=== PATIENT | female | born 1975 | race Caucasian/White ===

== ENCOUNTER 2023-05-31 07:57 | Outpatient (CLI) | payer OTHER, SELFPAY | END 2023-05-31 07:58 | disposition home or self-care (01) | LOC: NFLDREF 06-04 10:24 | PROVIDERS: PCP Physician Assistant Medical; Referring Provider Physician Assistant Medical; Visit Provider Physician Assistant Medical | DX: Z13.0 Encounter for screening for diseases of the blood and blood-forming organs and certain disorders involving the immune mechanism (principal); Z13.1 Encounter for screening for diabetes mellitus; Z13.6 Encounter for screening for cardiovascular disorders | CPT/HCPCS: 80053; 80061 ==

== ENCOUNTER 2023-07-09 11:08 | Outpatient (CLI) | payer OTHER, SELFPAY ==
--- NOTE | 2023-07-09 12:33 | W.ANESCHARGE ---
Anesthesia Charges Start Date/Time Anesthesia Start Date: 07/09/23 Anesthesia Start Time: 11:53 Stop Date/Time Anesthesia Stop Date: 07/09/23 Anesthesia Stop Time: 12:31
== END 2023-07-09 11:09 | disposition home or self-care (01) ==
LOC: OP CLINIC 11:08
PROVIDERS: PCP Physician Assistant Medical; Visit Provider Surgery
DX: Z12.11 Encounter for screening for malignant neoplasm of colon (principal); K63.5 Polyp of colon
CPT/HCPCS: 00811; 45385; 88305; J2704

== ENCOUNTER 2024-08-07 08:22 | Outpatient (CLI) | payer OTHER, SELFPAY ==
[2024-08-07 15:45] LABS: Chlamydia DNA Amplified* NOT DETECTED (No Detected); GC DNA Amplified* NOT DETECTED (No Detected)
[2024-08-09 01:02] LABS: HPV Source Cervix; HPV, High Risk by TMA Not Detected
== END 2024-08-07 08:23 | disposition home or self-care (01) ==
PROVIDERS: PCP Physician Assistant Medical; Visit Provider Physician Assistant Medical
DX: D64.9 Anemia, unspecified (principal); Z12.4 Encounter for screening for malignant neoplasm of cervix; Z11.3 Encounter for screening for infections with a predominantly sexual mode of transmission; Z13.21 Encounter for screening for nutritional disorder; Z13.220 Encounter for screening for lipoid disorders; Z13.228 Encounter for screening for other metabolic disorders
CPT/HCPCS: 80048; 80061; 82607; 83540; 83550; 87491; 87591; 87624; 87625; 88141; 88142

== ENCOUNTER 2024-09-01 09:31 | Outpatient (CLI) | payer OTHER, SELFPAY ==
--- NOTE | 2024-09-01 09:45 | CRLHL7_ITS ---
For Patients: As a result of the Century Cures Act, medical imaging exams and procedure reports are released immediately into your electronic medical record. You may view this report before your referring provider. If you have questions, please contact your health care provider. BILATERAL SCREENING MAMMOGRAM WITH COMPUTER-AIDED DETECTION AND TOMOSYNTHESIS TECHNIQUE: CC and MLO views were obtained. These mammographic images have been obtained using full-field digital technique. These mammographic images were interpreted with the benefit of computer-aided detection. Breast Tomosynthesis was used in this interpretation. COMPARISON FILM: 10/02/22, 09/12/21. FINDINGS: There are scattered areas of fibroglandular density. IMPRESSION: There is no radiographic evidence for malignancy. ASSESSMENT: BI-RADS Category 1: Negative RECOMMENDATION: Routine screening mammogram in 1 year. A lay language report of this examination will be provided to the patient. Tal Smith M.D. Diagnostic Radiologist [email or web address] SP/Dictated by: Tal Smith MD @ 09/06/2024 9:51:00 AM (Electronically Signed)
== END 2024-09-01 09:32 | disposition home or self-care (01) ==
LOC: MAMMO 09:32
PROVIDERS: PCP Physician Assistant Medical; Visit Provider Physician Assistant Medical
DX: Z12.31 Encounter for screening mammogram for malignant neoplasm of breast (principal)
CPT/HCPCS: 77063; 77067

== ENCOUNTER 2024-10-10 10:02 | Emergency (ER) | payer OTHER, SELFPAY ==
--- OUTSIDE RECORDS SUMMARY | 2024-10-10 10:06 | XMS_ITS | Clinical Summary ---
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 Gender Identity Not on file Sexual Orientation Not on file Plan of Treatment Health Maintenance Due Date Last Done Comments ADVANCE CARE PLANNING 1973 ANNUAL REVIEW OF HM ORDERS 1973 CT COLONOGRAPHY 1973 DIABETES SCREENING 1973 FIT 1973 FLEX SIG 1973 sDNA (Cologuard) 1973 YEARLY PREVENTIVE VISIT 1976 COLONOSCOPY 10/24/1983 COLORECTAL CANCER SCREENING 10/24/1983 HIV SCREENING 1988 HEPATITIS C SCREENING 10/24/1991 HEPATITIS B IMMUNIZATION (1 of 3 - 19+ 3-dose series) 1992 LIPID 2013 DTAP/TDAP/TD IMMUNIZATION (2 - Td or Tdap) 04/09/2020 04/09/2010 Pneumococcal Vaccine: 50+ Years (1 of 1 - PCV) 10/24/2023 ZOSTER IMMUNIZATION (1 of 2) 10/24/2023 COVID-19 Vaccine (5 - season) 2024 05/19/2022, 06/28/2021, 12/06/2020, Additional history exists INFLUENZA VACCINE (#1) 2024 2, 06/14/2021, 05/16/2020, Additional history exists PHQ-2 (once per calendar year) 2024 MAMMO SCREENING 10/02/2024 10/02/2022, 09/12/2021 HPV TEST 10/10/2027 10/09/2022 PAP 10/10/2027 10/09/2022 HPV IMMUNIZATION Aged Out No longer e ligible based on patient's age to complete this topic MENINGITIS IMMUNIZATION Aged Out No l onger eligible based on patient's age to complete this topic Procedures Procedure Name Priority Date/Time Associated Diagnosis Comments GYNECOLOGIC CYTOLOGY Routine 10/09/2022 8:37 AM CDT Encounter for gynecological examination (general) (routine) without abnormal findings HPV HIGH RISK TYPES DNA CERVICAL Routine 10/09/2022 8:37 AM CDT Encounter for gynecological examination (general) (routine) without abnormal findings MA SCREENING DIGITAL BILATERAL Routine 10/02/2022 11:58 AM CDT Visit for screening mammogram from Last 3 Months or Most Recently Relevant to Health Maintenance Results * Gynecologic Cytology (PAP) (10/09/2022 8:37 AM CDT) Interpretation Negative for Intraepithelial Lesion or Malignancy (NILM) 10/14/2022 2:28 PM CDT [facility] Comment Papanicolaou Test Limitations: Cervical cytology is a screening test with limited sensitivity, and regular screening is critical for cancer prevention. Pap tests are primarily effective for the diagnosis/prevent ion of squamous cell carcinoma, not adenocarcinoma or other cancers. 10/14/2022 2:28 PM CDT [facility] Specimen Adequacy Satisfactory for evaluation, endocervical/musa sformation zone component present 10/14/2022 2:28 PM CDT [facility] Clinical Information none 10/14/2022 2:28 PM CDT [facility] LMP/Menopause Date 10-03-22 10/14/2022 2:28 PM CDT [facility] Reflex Testing Yes regardless of result 10/14/2022 2:28 PM CDT [facility] Previous Abnormal? No 10/14/2022 2:28 PM CDT [facility] Previous Abnormal Diagnosis lps neg/HPV-neg 10/14/2022 2:28 PM CDT [facility] Performing Labs The technical component of this testing was completed at [facility] 10/14/2022 2:28 PM CDT [facility] Brushing CERVIX UTERI STRUCTURE / Unknown Non-blood Collection / Unknown 10/09/2022 8:37 AM CDT 10/09/2022 4:25 PM CDT us Ritu Nunez MD LAB - BEAKER AP Final Result [facility] Specialty Lab [address] [facility], [address] [id number], [facility] [phone] * HPV High Risk Types DNA Cervical (10/09/2022 8:37 AM CDT) Other HR HPV Negative Negative 10/16/2022 6:50 AM CDT [facility] HPV16 DNA Negative Negative 10/16/2022 6:50 AM CDT [facility] HPV18 DNA Negative Negative 10/16/2022 6:50 AM CDT [facility] FINAL DIAGNOSIS This patient's sample is negative for HPV DNA. This test was developed and its performance characteristics determined by the [facility]. It has not been cleared or approved by the FDA. The laboratory is regulated under CLIA as qualified to perform high-complexity testing. This test is used for clinical purposes. It should not be regarded as investigational or for research. METHODOLOGY: The Dannie Sergei 4800 system uses automated extraction, simultaneous amplification of HPV (L1 region) and beta-globin, followed by real time detection of fluorescent labeled HPV and beta globin using specific oligonucleotide probes. The test specifically identifies types HPV 16 DNA and HPV 18 DNA while concurrently detecting the rest of the high risk types (31, 33, 35, 39, 45, 51, 52, 56, 58, 59, 66 or 68). COMMENTS: This test is not intended for use as a screening device for woman under age 30 with normal cervical cytology. Results should be correlated with cytologic and histologic findings. Close clinical followup is recommended. 10/16/2022 6:50 AM CDT [facility] Brushing CERVIX UTERI STRUCTURE / Unknown Non-blood Collection / Unknown 10/09/2022 8:37 AM CDT 10/15/2022 8:03 AM CDT Ritu Nunez MD LAB - BLOOD ORDERABLES Final Result [facility] [address] [facility] [address], [address] [place] [id number], [facility] [phone] * MA Screening Digital Bilateral (10/02/2022 11:58 AM CDT) Anatomical Region Laterality Modality Breast Bilateral Mammography Impressions 10/02/2022 1:38 PM CDT IMPRESSION: ACR BI-RADS Category 1: Negative RECOMMENDED FOLLOW-UP: Annual routine screening mammogram The results and recommendations of this examination will be communicated to the patient. Salinas Rivera MD Narrative 10/02/2022 1:38 PM CDT BILATERAL FULL FIELD DIGITAL SCREENING MAMMOGRAM Performed on: 10/02/22 Compared to: 09/12/2021 Technique: This study was evaluated with the assistance of Computer-Aided Detection. Findings: The breasts have scattered areas of fibroglandular density. There is no radiographic evidence of malignancy. Screening Mammogram Selfreferral [facility] MAMMOGRAPHY ORDERABLES Final Result from Last 3 Months or Most Recently Relevant to Health Maintenance Insurance [employer]
--- OUTSIDE RECORDS SUMMARY | 2024-10-10 10:06 | XMS_ITS | Data Portability ---
Author Organization [place] - [facility] , [facility] Address [address] [place] [address] Assessment Encounter Date Assessment Date Assessment LastModified by Organization Details LastModified Time 07/17/2024 07/17/2024 Pertussis (Whooping Cough) - supported by the patient's positive family history and the recommendation from the production sound mixer for the entire family to be on antibiotics. - Prescribed azithromycin (Z-Les) and sent the prescription to [facility] at [facility] in [place]. [email or web address] Not available 07/17/2024 13:28:26 Plan of Treatment Reminders Order Date Submit Date Provider Last Modified By Organization Details Last Modified Time Details Appointments None recorded. Lab None recorded. Referral None recorded. Procedures None recorded. Surgeries None recorded. Imaging None recorded. Medication Orders azithromyci n 250 mg tablet 2024 025 [id number], [address] [place], [place], [phone], 13:25:42 Patient TargetsNo targets recorded. Patient Instructions Encounter Date Encounter Id Patient Instructions Last Modified By Organization Details Last Modified Time 07/17/2024 [id number] Summary of Today's Visit: Today, we discussed the recent health concerns related to your family ildefonso whooping cough, specifically the issues faced by your daughter due to her asthma. You reported experiencing a bad cough, a runny nose, and the feeling of possibly developing a sinus infection. Your daughter was confirmed to have whooping cough through a test conducted by her production sound mixer. Antibiotic Treatment: To address the situation and minimize the risk of spreading whooping cough, a course of azithromycin (Z-Les) has been prescribed for you. The prescription has been sent to the [facility] on [facility] in [place]. Please start taking the medication as directed and complete the full course, even if you start to feel better. Preventing Spread: It is crucial to avoid spreading whooping cough to others. Make sure to practice good hygiene, such as covering your mouth when coughing and washing your hands frequently. Avoid close contact with others, especially those who are more vulnerable to respiratory illnesses, until you have completed your antibiotic course and your symptoms have improved. Monitoring Symptoms: Keep an eye on your symptoms, including any potential sinus infection signs or worsening of your cough. If your symptoms do not improve with antibiotics or if they worsen, such as developing a severe headache, fever, or difficulty breathing, please contact us for further evaluation. Follow-Up Actions: - Begin your azithromycin course as soon as possible. - Monitor your symptoms and seek further medical advice if needed. - Complete the full course of antibiotics to ensure its effectiveness. - Continue to take preventive measures to avoid spreading whooping cough. [email or web address] Not available 07/17/2024 13:28:02 Reason for Referral None Reported. Medical Equipment None Reported. Allergies No known drug allergies Medications Name Sig Start Date Stop Date Status Note LastModified by Organization Details LastModified Time azithromyc in 250 mg tablet TAKE 2 TABLETS (500 MG) BY ORAL ROUTE ONCE DAILY FOR 1 DAY THEN 1 TABLET (250 MG) BY ORAL ROUTE ONCE DAILY FOR 4 DAYS 2024 active Not indicated in sinusitis Not Available Not Available Not Available Vitals None Recorded Social History None recorded. Functional Status None recorded. Mental Status None recorded. Family History Nothing Reported. Medical History No medical history recorded. Gynecological HistoryNo gynecological history recorded. Obstetrics History GPAL:G 0 P 0 0 0 0 Past Encounters Encounter ID Performer Location Encounter Start Date Encounter Closed Date Diagnosis/Indication Diagnosis SNOMED-CT Code Diagnosis ICD10 Code Diagnosis Note [id number] JOSE Lindsey [facility] [address] [id number] 07/17/2024 13:21:08 07/17/2024 19:26:17 Exposure to communicable disease 461015130 Z20.9 Health Concerns Section Related Observation LastModified by Organization Detai ls LastModified Time None Recorded Concern Status LastModified by Organization Details LastModified Time None Recorded Advance Directives Directive None Recorded Payers Encounter Date Sequence Insurance Name Policy Number Policy Almaraz Covered Member ID Almaraz Member ID Guarantor Name 07/17/2024 1 [facility] [id number] Walter Hickman [id number] Walter Hickman 07/17/2024 3 *SELF PAY* [id number] Walter Hickman [id number] Walter Hickman Notes Date Note Type Note Provider Name and Address Organization Details Recorded Time 07/17/2024 text/html Patient name , location, and phone number confirmed. Limitations of telemedicine evaluations reviewed, all questions answered, and verbal consent obtained to treat via secure video telemedicine interaction.Clinicangus n attests that the clinician is physically located in the following state at the time of the visit: {{}}Patient's current location is: {{home address on file*}} (home/workplace/othe r address) in {{ [place]#}} (state)CC: Persistent cough and concern for whooping cough exposure HPI: The patient presents with concerns about a persistent cough and potential exposure to whooping cough following their daughter's recent diagnosis. The onset of symptoms is not precisely detailed, but the patient reports being sick for some time. The cough is described as severe, accompanied by a very runny nose. There is minimal chest congestion, although the patient is coughing up some phlegm, attributed to nasal drainage. The patient describes their condition as potentially developing into a sinus infection. No episodes of wheezing are reported. The daughter, aged 17, was recently diagnosed with whooping cough after it manifested severely due to her asthma, requiring two courses of antibiotics (initially azithromycin, followed by Augmentin). A preventative recommendation was made for the rest of the family to start antibiotics, specifically to minimize contagiousness. The patient reports no known exposure source for whooping cough, acknowledging the difficulty in identifying whether the exposure occurred at school or sports. The patient denies significant chest congestion typically associated with respiratory infections and has not yet begun any personal medical treatment for their symptoms before the visit. The patient expresses their intention to prevent further spread, particularly given a recent spike in whooping cough cases in [place]. JOSE Lindsey [address] [facility] [address], [place], [address], [facility] 07/17/2024 13:29:09 OBGyn Episode No OBEpisode recorded.
--- OUTSIDE RECORDS SUMMARY | 2024-10-10 10:06 | XMS_ITS | Data Portability ---
Author Organization [place] - PAYMENT MANAGER, [id number] Address [address] [facility] [place] [address] Assessment No assessment recorded. Plan of Treatment Reminders Order Date Submit Date Provider Last Modified By Organization Details Last Modified Time Details Appointments None recorded. Lab Pap test, slide(s), cervical 2022 023 [facility], [address] [place] [address], [address], [place], [address], 3 07:53:28 Referral None recorded. Procedures None recorded. Surgeries None recorded. Imaging None recorded. Medication Orders None recorded. Patient TargetsNo targets recorded. Patient Instructions Encounter Date Encounter Id Patient Instructions Last Modified By Organization Details Last Modified Time 10/09/2022 [id number] - Encouraged breast self-awareness and recommend yearly mammogram. - Encouraged regular exercise. - Calcium and vitamin D intake discussed. - Patient will return to clinic for fasting labs. - Discussed appropriate breast cancer screening and mammogram intervals. - Counseled on perimenopause signs/symptoms. - Discussed mood symptoms - Counseled on smoking cessation. - Trusted websites given to the patient. [email or web address] Not available 10/09/2022 12:18:28 Reason for Referral None Reported. Results Created Date Observation Date Name Description Value Unit Range Abnormal Flag Note LastModifiedBy Organization Detail LastModifiedTime 10/10/1910/09/2022 GYNEC OLOGI C CYTOL OGY (PAP SMEAR ) gynecologic cytology SEE RESULT S BELOW SPECI MEN SOURC E Notus ing Cervi x BKR LAB AP CASING FLUID TENDER INTER PRETA TION: Negat everett for Intra epith elial Lesio n or Yuval hawley (NILM ) Elect mackenzie valera omar d by Holly Parry do, CONRADO (ASCP ) on 023 at 2:28 PM Path repor [email or web address] ments Imp Spec: Papan icola ou Test Limit ation s: Cervi corinne cytol ogy is a scree liliana test with limit ed sensi tivit y, and regul ar scree liliana is criti corinne for cance r preve ntion . Pap tests are prima rily effec tive for the diagn osis/ preve ntion of squam ous cell carci noma, not adeno carci noma or other cance rs. BKR LAB AP CASING FLUID TENDER ADEQU ACY: Satis facto ry for evalu ation , endoc ervic al/tr ansfo rmati on zone compo nent prese nt Path repor t.rel evant Hx Spec: none BKR LAB AP LMP: BKR LAB AP HPV REFLE X: Yes regar dless of resul t BKR LAB AP PREVI OUS ABNOR MAL: No BKR LAB AP PREVI OUS ABNL DX: lps 10-20 16 neg/H PV-ne g Path repor [email or web address] ments Imp Spec: The techn ical compo nent of this testi ng was compl eted at [facility] Not Available [address], [place], [address], 10/16/2022 07:53:28 10/10/1910/09/2022 HPV HIGH RISK TYPES DNA CERVI CORINNE other HR HPV Negati ve negati ve Not Available [address], [place], [address], 10/16/2022 07:53:52 10/10/19 23 10/09/2022 HPV HIGH RISK TYPES DNA CERVI CORINNE HPV16 DNA Negati ve negati ve Not Available [address], [place], [address], 10/16/2022 07:53:52 10/10/19 23 10/09/2022 HPV HIGH RISK TYPES DNA CERVI CORINNE HPV18 DNA Negati ve negati ve Not Available [address], [place], [address], 10/16/2022 07:53:52 10/10/19 23 10/09/2022 HPV HIGH RISK TYPES DNA CERVI CORINNE final diagnosis See note below This patie nt's sampl e is negat everett for HPV DNA. This test was devel oped and its perfo rmanc e andres cteri stics deter mined by [facility] . It has not been clear ed or appro opal by the FDA. The labor atory is regul ated under CLIA as quali fied to perfo rm high- compl exity testi ng. This test is used for clini corinne purpo ses. It shoul d not be regar ded as inves tigat ional or for resea rch. METHO DOLOG Y: The Dannie Sergei 4800 syste m uses autom ated extra ction , simul taneo us ampli ficat ion of HPV (L1 regio n) and beta- globi n, follo wed by real time detec tion of fluor escen t label ed HPV and beta globi n using speci fic oligo nucle otide probe s. The test speci fical ly ident ifies types HPV 16 DNA and HPV 18 DNA while concu rrent ly detec ting the rest of the high risk types (31, 33, 35, 39, 45, 51, 52, 56, 58, 59, 66 or 68). COMME NTS: This test is not inten ded for use as a scree liliana devic e for woman under age 30 with donnie l cervi corinne cytol ogy. Resul ts shoul d be corre lated with cytol ogic and histo logic findi ngs. Close clini corinne follo wup is recom jose d. Not Available [facility] [address], [place], [address], 10/16/2022 07:53:52 Result Notes None recorded. Procedures Surgical History Date Name Laterality Status Provider Name and Address Organization Details Recorded Time 10/10/19 23 Date of Last Pap Smear completed La Karimi [facility] 10/16/2022 13:51:42 03/30/20 12 removal of intrauterine device completed Ashley Banerjee [facility] 10/09/2022 07:33:57 12/11/19 07 [facility] of [facility]ine [facility]ptive [facility]/09/2022 07:33:43 07/12/18 90 [facility] 10/09/2022 07:34:11 Imaging Results None recorded. Procedure Notes None recorded. Medical Equipment None Reported. Allergies Allergen ID Allergen Name Allergen Category Reaction Reaction Severity Criticality Documentation Date Start Date Code Code System Note Provider Name and Address Organization Details Recorded Time 384886 Product containin g penicilli n (product) medicatio n Not available Not available Not available 10/09/2022 23410 8001 SNOMED Ashleyrah connor [facility] 3 07:34:36 Medications Name Sig Start Date Stop Date Status Note LastModified by Organization Details LastModified Time doxycycline hyclate 100 mg capsule TAKE 1 CAP BY MOUTH IN MORNING & BEDTIME X10 DAYS-GILMA E W/ AT LEAST 8OZ. WATER, DONT LIE DOWN X30 MIN 10/09 completed Not Available Not Available Not Available benzonatate 200 mg capsule TAKE 1 CAP BY MOUTH IF NEEDED IN MORNING, NOON, AND BEDTIME FOR COUGH XUP TO 3 DAYS. DONT CRUSH/CH EW 10/09 completed Not Available Not Available Not Available clindamycin 1 % topical gel APPLY TO FACIAL AREAS EVERY NIGHT AT BEDTIME 10/09 completed Not Available Not Available Not Available Vitals Date Recorded Body weight Body mass index (BMI) Body height Systolic blood pressure Diastolic blood pressure Provider Name and Address Organization Details Last Updated DateTime 10/09/2022 24957.97 g 23.2 kg/m2 162.56 cm 118 mm[Hg] 76 mm[Hg] Ashley Chriss [facility] 3 09:17:50 Social History Question Answer Notes LastModified by Organizat ion Details LastModified Time Tobacco Smoking Status Never Smoker VIKASH Montoya PAYMENT MANAGER 10/09/2022 07:33:04 Do You Have An Advance Directive? No Information not available 10/09/2022 What Is Your Level Of Alcohol Consumption? Occasional 1-2dr/wk Information not available 10/09/2022 What Is Your Level Of Caffeine Consumption? Moderate 2c/day Information not available 10/09/2022 Children's Names/ Esperanza Shelby Information not available 10/09/2022 History Of Domestic Violence No Information not available 10/09/2022 Do You Use Any Illicit Or Recreational Drugs? No Information not available 10/09/2022 Sex: Unknown Functional Status Question Answer Note LastModified by Organization D etails LastModified Time What is your exercise level? Moderate Information not available 10/09/2022 Mental Status None recorded. Family History Relationship Description Onset Age of this Age Resolved Age Notes LastModified by Organization Details LastModified Time Paternal Grandfather Malignant neoplasm of urinary bladder Not available 2022 07:30:32 Mother Endometriosi s (clinical) Not available 07:31:03 Mother Osteoporosis younge r age of diagno sis Not available 10/09/2022 07:31:42 Father Malignant tumor of lung Smoker Not available 2022 07:31:22 Medical History Condition Response Psych- Depression Y Gynecological History Statement/Question Response HPV Test Negative Age at Menarche: 11 Date of LMP 10/03/2022 Current Control Method Vasectomy Date of Last Pap Smear 10/09/2022 Date of Last Diabetes Screening 07/31/19 20 Date of Last Cholesterol Screening 07/31 Obstetrics History GPAL:G 3 P 2 0 1 2 Type Value Full Term 2 Living 2 Ectopics 1 Total 3 Immunizations Vaccine Type Date Status Note Provider Nam e and Address Organization Details Recorded Time Influenza, MDCK, quadrivalent, PF 0 completed VIKASH Montoya PAYMENT MANAGER 10/09/2022 09:14:22 COVID-19, mRNA, LNP-S, PF, 30 mcg/0.3 mL dose 1 completed Ashley Will null, [facility] 10/09/2022 09:14:22 COVID-19, mRNA, LNP-S, PF, 30 mcg/0.3 mL dose 1 completed Ashley Will null, [facility] 10/09/2022 09:14:22 COVID-19, mRNA, LNP-S, PF, 30 mcg/0.3 mL dose 1 completed Ashley Will null, [facility] 10/09/2022 09:14:22 COVID-19, mRNA, LNP-S, bivalent, PF, 30 mcg/0.3 mL dose 2 completed Ashley Will null, [facility] 10/09/2022 09:14:22 Tdap 0 completed Ashley Will null, [facility] 10/09/2022 09:14:22 Influenza, split virus, trivalent, preservative 2 completed Ashley Will null, [facility] 10/09/2022 09:14:22 Influenza, split virus, trivalent, preservative 3 completed Ashley Will null, [facility] 10/09/2022 09:14:22 Influenza, split virus, trivalent, PF 0 completed Ashley Will null, [facility] 10/09/2022 09:14:22 Influenza, split virus, trivalent, PF 1 completed Ashley Will null, [facility] 10/09/2022 09:14:22 Influenza, split virus, trivalent, PF 9 completed Ashley Will null, [facility] 10/09/2022 09:14:22 Novel [id number] completed Ashley Will null, [facility] 10/09/2022 09:14:22 Influenza, split virus, quadrivalent, PF 2 completed Ashley Will null, [place] [facility] PAYMENT MANAGER 10/09/2022 09:14:22 Influenza, split virus, quadrivalent, PF 9 completed Ashley Will null, [place] [facility] PAYMENT MANAGER 10/09/2022 09:14:22 Influenza, split virus, quadrivalent, PF 8 completed Ashley Will null, [place] [facility] PAYMENT MANAGER 10/09/2022 09:14:22 Influenza, split virus, quadrivalent, PF 1 completed Ashley Will null, [place] [facility] PAYMENT MANAGER 10/09/2022 09:14:22 Influenza, split virus, quadrivalent, PF 5 completed Ashley Will null, [place] [facility] PAYMENT MANAGER 10/09/2022 09:14:22 Past Encounters Encounter ID Performer Location Encounter Start Date Encounter Closed Date Diagnosis/Indication Diagnosis SNOMED-CT Code Diagnosis ICD10 Code Diagnosis Note [id number] JASS NGUYEN MD [id number] [address] [place] VIKASH [id number] 10/09/2022 09:07:39 10/09/2022 12:19:33 Gynecologic examination 92118984 Z01.419 Due for pap, collected todayRegul ar cycles but irregular bleeding - continue to monitor for now. Suspected secondary to perimenopa use.Up to date on mammogramD ue for colonoscop yPartner vasectomy Health Concerns Section Related Observation LastModified by Organization Detai ls LastModified Time None Recorded Concern Status LastModified by Organization Details LastModified Time None Recorded Advance Directives Directive N: Payers Encounter Date Sequence Insurance Name Policy Number Policy Almaraz Covered Member ID Almaraz Member ID Guarantor Name 10/09/2022 1 [facility] [id number] Walter Hickman [id number] Walter Hickman Notes Date Note Type Note Provider Name and Address Organization Details Recorded Time 10/09/2022 text/html Annual Premenopausal ([facility])Reported bypatient.Patient Relationship To Practice:marie huffman patient Current Medical History:no active medical problems Relevant Family History:no family history of breast cancer; no family history of ovarian cancer; no family history of uterine cancer; no family history of colon cancer; no family history of blood clots/DVT Menstrual History:Frequency of Menses: monthly; Duration of Flow: 5 days; Clots: yes Contraceptive Method:satisfied: vasectomy Sexually Active:Yes: Health/Prevention:S afe Sex yes; Tobacco Use: no; Safe at home: yes; Mental Health Screen: normal Mammogram:up-to-nitin e Pap Smear +/- HPV Cotesting:due Thyroid/Lipid Screening:due Colonoscopy:dueNote s:Daughters 20 and 16 yoWorks in finance at [employer] still regular but bleeding has been variable - very heavy 2 cycles ago, [place] [id number], [place], [address], [facility] PAYMENT MANAGER 10/09/2022 12:18:53 OBGyn Episode Ob Episode Information Episode Created Date Number of Fetuses Patient Bloodtype Patient rh Status Prepregnancy Weight lbs Domestic Partner Domestic Partner Phone Father Name Lap Hand Tool Status 10/10/19 1 CLOSED Fetus Data First Name Last Name Admitted to NICU Weight (g) Sex Living Outcome Pediatric Complications Fetus ID Race Codes Race Delivery Type 3259.96 [id number] F Full Term [id number] Romero Calculation Initial Romero Date Initial Exam Date Initial Exam Provider Initial Ultrasound Date Last Menstrual Period Date Ultra Sound Weeks Gestation 0 Eighteen To Twenty Week Romero Update Ultra Sound Date Fundal Height At Umbil Quickening Date Ultra Sound Latest Weeks Gestation Final Romero Confirmed By Final Romero Confirmed Date Final Romero Date Ultra Sound Latest Days Gestation 0 0 Menstrual History Last Menstrual Date Menses Monthly On Bcp Conception Prior Menses Frequency Hcg Plus Date Menarche Onset Age Delivery Information Delivery Date Delivery Type Labor Anesthesia Weeks Gestation Incision Type Labor Labor Length Hrs Delivered By Post Complications Tubal Sterilization Discharge Date Comments 2 [facility]- idural 37 9 Discharge Information Feeding Method Contraceptive Method Maternal HG B and HCT Levels Ob Episode Information Episode Created Date Number of Fetuses Patient Bloodtype Patient rh Status Prepregnancy Weight lbs Domestic Partner Domestic Partner Phone Father Name Lap Hand Tool Status 10/10/19 23 1 CLOSED Fetus Data First Name Last Name Admitted to NICU Weight (g) Sex Living Outcome Pediatric Complications Fetus ID Race Codes Race Delivery Type 3713.55 [id number] F Full Term [id number] Romero Calculation Initial Romero Date Initial Exam Date Initial Exam Provider Initial Ultrasound Date Last Menstrual Period Date Ultra Sound Weeks Gestation 0 Eighteen To Twenty Week Romero Update Ultra Sound Date Fundal Height At Umbil Quickening Date Ultra Sound Latest Weeks Gestation Final Romero Confirmed By Final Romero Confirmed Date Final Romero Date Ultra Sound Latest Days Gestation 0 0 Menstrual History Last Menstrual Date Menses Monthly On Bcp Conception Prior Menses Frequency Hcg Plus Date Menarche Onset Age Delivery Information Delivery Date Delivery Type Labor Anesthesia Weeks Gestation Incision Type Labor Labor Length Hrs Delivered By Post Complications Tubal Sterilization Discharge Date Comments 7 [facility] 40 15 Discharge Information Feeding Method Contraceptive Method Maternal HG B and HCT Levels
[2024-10-10 10:12] VITALS: BP 133/83; PULSE 92; RESP 20; TEMP 36.5; O2SAT 99; BMI 23.2
--- NOTE | 2024-10-10 10:25 | CRLHL7_ITS ---
For Patients: As a result of the 21st Century Cures Act, medical imaging exams and procedure reports are released immediately into your electronic medical record. You may view this report before your referring provider. If you have questions, please contact your health care provider. INDICATION: Diffuse abdominal pain, nausea, vomiting, diarrhea and bloating. TECHNIQUE: Axial images were obtained from the diaphragm to the pubic symphysis. Reformats were obtained in the coronal and sagittal plane. IV Contrast: 66 cc Isovue 370 Oral Contrast: None COMPARISON: None. FINDINGS: Lower chest: Areas of discoid atelectasis lung bases. Liver: Unremarkable. Normal in size and attenuation. No masses. Gallbladder and bile ducts: Unremarkable. No stones or inflammation. No biliary dilatation. Spleen: Unremarkable. Normal in size without mass. Pancreas: Unremarkable. No mass or inflammation. Adrenal glands: Unremarkable. No nodules. Kidneys: Unremarkable. No masses, stones, or hydronephrosis. Vasculature: Unremarkable. GI tract: Small ascites with dilated loops of small bowel extending to the level of the terminal ileum. At this level the terminal ileum is decompressed with somewhat irregular appearance of the wall and hyperenhancement (series 2, image 105). Possible small sinus tract is questioned. No definite abscess. No pneumoperitoneum. Some hyperenhancement of the colon although the colon is decompressed. Subcentimeter mesenteric lymph nodes. Pelvis: Retroverted uterus with somewhat amorphous hypodensities which may represent prominence of the endometrium versus underlying leiomyomata. Bones: Unremarkable for age. IMPRESSION: 1. Dilated loops of small bowel consistent with small-bowel obstruction. This transitions at the point of the terminal ileum which appears diminutive in caliber with hyperenhancement, irregularity of its` wall as well as the question of small sinus tracts in the adjacent mesentery. Appearance is suspicious for inflammatory bowel disease/Crohn`s disease as the underlying etiology of the obstruction. Differential diagnosis would include an infectious enteritis involving the terminal ileum. Associated trace ascites. 2. Somewhat globular lobulated hypodensity at the fundus of the uterus. This is inseparable from the endometrium and can represent diffuse endometrial thickening versus leiomyomata. Suggest follow-up outpatient pelvic ultrasound for further characterization. Please note that all CT scans at this facility use dose modulation, iterative reconstruction, and/or weight-based dosing when appropriate to reduce radiation dose to as low as reasonably achievable. Dictated by Favio Castaneda MD @ 10/10/2024 11:47:39 AM (Electronically Signed)
--- NOTE | 2024-10-10 10:29 | ED_ITS ---
HPI - Abdominal Pain General Date Seen: 10/10/24 Chief Complaint: Abdominal Pain Stated Complaint: severe stomach pain-10/08 in [place] Time Seen by Provider: 10/10/24 10:04 Source: patient Mode of arrival: ambulatory Limitations: no limitations History of Present Illness HPI narrative: Patient is a 48 year old female presenting to the emergency department for diffuse abdominal pain. She states they were in [place] her and on Wednesday she started having some abdominal pain and bloating. She began to have nausea, vomiting, diarrhea also. Was seen in the clinical air and was given several medications for possible bacterial and or parasitic infection. She was feeling better and last vomited Wednesday night. Flu home Wednesday doing okay and went into urgent care just to follow-up and make sure thing is looking okay. Normal S morning she ate pressure little bit of oatmeal which is normal she has eaten the past 2 or 3 days. She states then when she got urgent care she started having worsening abdominal pain and states the pain feels severe and the bloating has returned. She is feeling nauseated but states she has not vomited since Wednesday. Never has had symptoms like this before. No previous abdominal surgeries. Denies chest pain, shortness of breath, headache, lightheadedness, dizziness, weakness. States she had a large episode diarrhea when she arrived to our emergency department. Describes as watery in nature. Has not been passing any gas. Has not noticed any vaginal bleeding, discharge, dysuria. No other concerns noted. Has not had any imaging done for her abdomen yet. Related Data Previous Rx's ?Medication ?Instructions ?Recorded ondansetron 4 mg disintegrating 4 mg PO Q6H #20 tabs 10/10/24 tablet Allergies Allergy/AdvReac Type Severity Reaction Status Date / Time penicillin V Allergy Intermediate Rash Verified 10/10/24 09:46 erythromycin base Allergy Mild Vomiting Verified 10/10/24 09:46 Review of Systems Status of ROS Reports: 10 or more systems reviewed and unremarkable except as noted in History and below [facility] Medical History History of migraine headaches ?Z86.69 - Personal history of other diseases of the nervous system and sense organs (ICD-10) Preeclampsia ?O14.90 - Unspecified pre-eclampsia, unspecified trimester (ICD-10) Surgical History History of tonsillectomy ?Z90.89 - Acquired absence of other organs (ICD-10) Family History Father Cancer Alcohol dependence Maternal Grandmother Alzheimers disease Paternal Grandmother Dementia Social History Narrative: . She has 2 daughters. One is at [employer], going to 2024- pursuing occupational therapy. The other is in high school at [employer]. Consumes 2-3 drinks per week Runs about 2-3 days per week; rowing as well. 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 What is your current living situation?: I presently have a place to live Problems where you live: no known problems In the past 12 mos, have been you worried that your food would run out before you had money to buy more?: never true In the past 12 mos, the food you bought just didn't last and you didn't have money to buy more?: never true Physical activity type: running and resistance training How many days of moderate to strenuous exercise, like a brisk walk, did you do in the last 7 days: 3 Smoking Status: Never smoker Do you use any of these nicotine containing products: None How often do you have a drink containing alcohol: 2-4 times a month How many standard drinks containing alcohol do you have on a typical day: 1 or 2 How often do you have six or more drinks on one occasion: Never AUDIT-C Alcohol total score: 2 Non-prescribed substance use: denies use Are you now , , , , never or living with a partner: Social isolation score (0-1 are the most socially isolated patients): 1 How often does anyone, including family, friends and others, physically hurt you : never How often does anyone, including family, friends and others, insult or talk down to you: never How often does anyone, including family, friends and others, threaten you with harm: never How often does anyone, including family, friends and others, scream or curse at you: never Exam Narrative: Exam Narrative: Const: Well-nourished, Well-developed, in moderate distress Eyes: PERRL, no conjunctival injection, and symmetrical lids HENT: Atraumatic external nose and ears. Moist mucous membranes. Neck: Symmetric, trachea midline, No thyromegaly. CVS: RRR, No murmurs or gallops. Peripheral pulses 2+ and equal in all extremities RESP: Unlabored respiratory effort. Clear to auscultation bilaterally. GI: Diffuse tenderness, mildly distended, No rebound or guarding. MSK:Extremities w/o deformity, Normal Active ROM Skin: Warm, Dry. No rashes or lesions. Neuro: Normal Muscle tone, No focal neurological deficits. Psych: Awake, Alert, & Oriented x3. Appropriate mood and affect. Const: Vital Signs, click to edit/add: Vital Signs - 24 hr 10/10/24 10:12 Temperature 97.7 F Pulse Rate [Pulse Oximeter] 92 Respiratory Rate 20 Blood Pressure [Ri ght Upper Arm] 133/83 Pulse Oximetry 99 Oxygen Delivery Me thod Room Air Course Vital Signs Vital signs: Initial Vital Signs Temperature 97.7 F 10/10/24 10:12 Temperature Source Temporal Artery Scan 10/10/24 10:12 Pulse Rate 92 10/10/24 10:12 Respiratory Rate 20 10/10/24 10:12 Blood Pressure 133/83 10/10/24 10:12 Blood Pressure Mean 99 10/10/24 10:12 Pulse Oximetry 99 10/10/24 10:12 Oxygen Delivery Method Room Air 10/10/24 10:12 Vital Signs Temperature 97.7 F 10/10/24 10:12 Pulse Rate 92 10/10/24 10:12 Respiratory Rate 20 10/10/24 10:12 Blood Pressure 133/83 10/10/24 10:12 Pulse Oximetry 99 10/10/24 10:12 Oxygen Delivery Method Room Air 10/10/24 10:12 Temperature 97.7 F 10/10/24 10:12 Pulse Rate 92 10/10/24 10:12 Respiratory Rate 20 10/10/24 10:12 Blood Pressure 133/83 10/10/24 10:12 Pulse Oximetry 99 10/10/24 10:12 Oxygen Delivery Method Room Air 10/10/24 10:12 Medications Administered Medications: Discontinued Medications Generic Name Dose Route Start Last Admin Trade Name Freq PRN Reason Stop Dose Admin Lactated Ringer's 1,000 mls @ 1,000 mls/hr 10/10/24 10:25 10/10/24 11:51 Lactated Ringers 1000 Ml IV 10/10/24 11:24 Infused .Q1H ONE Infusion Morphine Sulfate 4 mg 10/10/24 10:10/10/24 10:48 Morphine 4 Mg/Ml Inj IVP 10/10/24 10:26 4 mg ONCE ONE Administration Ondansetron HCl 4 mg 10/10/24 10:10/10/24 10:47 Ondansetron 2 Mg/Ml Inj IVP 10/10/24 10:26 4 mg ONCE ONE Administration MDM - Abdominal Pain MDM Narrative Medical decision making narrative: Patient is a 48-year-old female presenting to the emergency department for abdominal pain. Differential at this time is broad. No history of surgery makes an SBO less likely but is on the differential pressure due to her abdominal distention. Differential also includes pancreatitis, gastroenteritis, colitis, diverticulitis, appendicitis, gallbladder and liver disease. CT scan will be done for better evaluation. Will also do a CBC, CMP, lipase, urinalysis, COVID/flu/RSV, magnesium. Could be and uncommon presentation of ACS also will do an EKG and troponin. Morphine given for pain, Zofran for nausea and lactated Ringer's for her dehydration. Patient's lab work shows no concerning findings other than slightly low potassium sodium. She is otherwise fine much better after the medication. She states her symptoms have resolved. CT scan returned showing signs consistent with a small-bowel obstruction. They know a transition point in the terminal ileum. They state this could be related to inflammatory bowel disease and or on infectious enteritis involving the terminal ileum. Patient just had a colonoscopy 15 months ago that only showed some benign polyps. I did speak to the on-call general surgeon, Dr. Bradford, and explained that the patient developed symptoms while in [place] and had that relatively recently non concerning colonoscopy and has never had any abdominal or gynecological surgeries. Also informed the patient is not passing gas but having large amounts of diarrhea. Due to this she does think this is most likely just infectious enteritis. She has not believe the patient needs to be admitted but should return if symptoms come back. Does recommend a stool culture if possible. Patient is agreeable to this plan she states her symptoms are almost fully gone at this point. I did ask about getting a stool culture which she states she does not feel like she is able to go anymore. She is currently on some anti spasmodic and and reflux medications along with an anti parasitic medicine she got from [place]. I informed her she should at minimum trying finished the anti parasitic medicine. Also discharge her home with Zofran as that seemed to help her pain. Offer her oxycodone for pain management but she states she prefers just using Tylenol. This is reasonable. She will be discharged she is agreeable to this plan. Lab Data Labs: Lab Results 10/10/24 10/10/24 Range/Units 10:47 10:52 WBC 6.90 (4.50-11.00) K/uL RBC 4.67 (4.00-5.20) m/uL Hgb 13.0 (12.0-16.0) gm/dL Hct 40.2 (33.0-51.0) % MCV 86 (80-100) fL MCH 28 (26-34) pg MCHC 32 (32-36) gm/dL RDW Coeff of [place] 14.0 (11.5-15.5) % Plt Count 452 H (140-440) K/uL Neut % (Auto) 79.0 H (42.0-72.0) % Lymph % (Auto) 5.2 L (20-44) % [place] % (Auto) 14.1 H (0.0-11.0) % Eos % (Auto) 1.0 (0.0-7.0) % Baso % (Auto) 0.3 (0.0-3.0) % Neut # (Auto) 5.50 (1.7-7.0) K/uL Lymph # (Auto) 0.40 L (0.90-2.90) K/uL [place] # (Auto) 1.00 H (0.00-0.90) K/UL Eos # (Auto) 0.07 (0.00-0.50) K/uL Baso # (Auto) 0.02 (0.00-0.30) K/uL Abs Immat Gran (auto) 0.03 (0.00-0.30) K/uL Imm/Tot Granulo (auto) 0.4 % Sodium 134 L (135-149) mmol/L Potassium 3.3 L (3.6-5.1) mmol/L Chloride 97 (96-114) mmol/L Carbon Dioxide 24 (20-32) mmol/L Anion Gap 13 (7-15) mEq/L BUN 18 (7-30) mg/dL Creatinine 0.7 (0.5-1.5) mg/dL Estimated Creat Clear 83.03 Estimated GFR 105 ml/min Glucose 107 (60-115) mg/dL Calcium 9.0 (8.4-10.6) mg/dL Magnesium 2.1 (1.5-2.6) mg/dL Total Bilirubin 0.6 (0.1-1.5) mg/dL AST 28 (12-35) U/L ALT 16 (4-35) U/L Alkaline Phosphatase 88 (40-150) U/L Troponin I < 0.01 (0.01-0.04) ng/mL Total Protein 7.8 (6.0-8.3) g/dL Albumin 4.5 (3.3-5.0) g/dL Lipase 208 (23-300) U/L SARS-CoV-2 (PCR) Negative SARS-CoV-2 (Negative) Influenza Type A (PCR) Negative PCR FLU A (Negative) Influenza Type B (PCR) Negative PCR FLU B (Negative) RSV (PCR) Negative PCR RSV (Negative) Imaging Data CT scan abdomen pelvis: Attestation: I have reviewed the pertinent imaging results. Radiologist's impression: 1. Dilated loops of small bowel consistent with small-bowel obstruction. This transitions at the point of the terminal ileum which appears diminutive in caliber with hyperenhancement, irregularity of its` wall as well as the question of small sinus tracts in the adjacent mesentery. Appearance is suspicious for inflammatory bowel disease/Crohn`s disease as the underlying etiology of the obstruction. Differential diagnosis would include an infectious enteritis involving the terminal ileum. Associated trace ascites. 2. Somewhat globular lobulated hypodensity at the fundus of the uterus. This is inseparable from the endometrium and can represent diffuse endometrial thickening versus leiomyomata. Suggest follow-up outpatient pelvic ultrasound for further characterization. Please note that all CT scans at this facility use dose modulation, iterative reconstruction, and/or weight-based dosing when appropriate to reduce radiation dose to as low as reasonably achievable. Dictated by Favio Castaneda MD @ 10/10/2024 11:47:39 AM ECG Data Attestation: I personally reviewed and interpreted this ECG as follows: Prior ECG tracings: not available for review Interpretation: Normal sinus rhythm with a rate of 81 beats per minute, normal intervals, normal axis, no ST or T-wave abnormality. Discharge Plan Discharge Clinical Impression: Enteritis Patient Disposition: Home, Self-Care Condition: Improved Instructions: Traveler's Diarrhea (ED), Clear Liquid Diet (ED) Additional Instructions: Take Tylenol for pain and Zofran for your nausea. I recommend a clear liquid diet until his symptoms are improving. Try drinking plenty of Pedialyte is keep up on your electrolytes. If you are still having mild symptoms I recommend close follow-up with the primary care provider. If you develops severe symptoms again return for re-evaluation. Of note there is a hypodensity on your uterus. We cannot say if this is endometrial thickening or Leiomyoma. It is recommended you follow-up outpatient for a dedicated pelvic ultrasound. Prescriptions: New ondansetron 4 mg tablet,disintegrating 4 mg PO Q6H Qty: 20 0RF Follow Up/Referrals: Miracle Brennan PA-C [Primary Care Provider] - Stand Alone Forms: [employer] Info Instructions
--- OUTSIDE RECORDS SUMMARY | 2024-10-10 10:35 | XMS_ITS | Clinical Summary ---
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 Gender Identity Not on file Sexual Orientation [...] component of this testing was completed at [facility] 10/14/2022 2:28 PM CDT [facility] Brushing CERVIX UTERI STRUCTURE / Unknown Non-blood Collection / Unknown 10/09/2022 8:37 AM CDT 10/09/2022 4:25 PM CDT us Ritu Nunez MD LAB - BEAKER AP Final Result [facility] Specialty Lab [address] [facility], [address] [id number], [place] [phone] * HPV High Risk Types DNA Cervical (10/09/2022 8:37 AM CDT) Other HR HPV Negative Negative 10/16/2022 6:50 AM CDT [facility] HPV16 DNA Negative Negative 10/16/2022 6:50 AM CDT [facility] HPV18 DNA Negative Negative 10/16/2022 6:50 AM CDT [facility] FINAL DIAGNOSIS This patient's sample is negative for HPV DNA. This test was developed and its performance characteristics determined by the [facility], Molecular Diagnostics Laboratory. It has not been [...] Result [facility] [address] [facility] [address], [address] [place] [id number], [place] [phone] * MA Screening Digital Bilateral (10/02/2022 11:58 [...] Most Recently Relevant to Health Maintenance Insurance [employer]
[2024-10-10] MEDS: ONDANSETRON 2 MG/ML inj 4 MG IVP (10:47)
[2024-10-10] MEDS: LACTATED RINGERS 1000 ML 1,000 ML IV (10:48)
[2024-10-10] MEDS: MORPHINE 4 MG/ML INJ IVP (10:48)
[2024-10-10 11:08] LABS: Basophils Absolute Auto 0.02 K/uL (0.00-0.30); Basophils Percent Auto 0.3 % (0.0-3.0); Eosinophils Absolute Auto 0.07 K/uL (0.00-0.50); Hematocrit 40.2 % (33.0-51.0); Immature Granulocytes Abs Auto 0.03 K/uL (0.00-0.30); Immature Granulocytes Pct Auto 0.4 %; Lymphocytes Percent Auto 5.2 % (20-44); Mean Corpuscular HGB Conc 32 gm/dL (32-36); Mean Corpuscular Hemoglobin 28 pg (26-34); Mean Corpuscular Volume 86 fL (80-100); Monocytes Percent Auto 14.1 % (0.0-11.0); Platelet Count* 452 K/uL (140-440); Red Blood Count 4.67 m/uL (4.00-5.20)
[2024-10-10 11:18] LABS: Albumin* 4.5 g/dL (3.3-5.0); Chloride* 97 mmol/L (96-114)
[2024-10-10 11:19] LABS: Potassium* 3.3 mmol/L (3.6-5.1); Sodium* 134 mmol/L (135-149)
[2024-10-10 11:21] LABS: Alanine Aminotransferase* 16 U/L (4-35); Anion Gap 13 mEq/L (7-15); Aspartate Amino Transferase* 28 U/L (12-35); Blood Urea Nitrogen* 18 mg/dL (7-30); Carbon Dioxide* 24 mmol/L (20-32); Creatinine* 0.7 mg/dL (0.5-1.5); Est. Creatinine Clearance* 83.03; Estimated Glomerular Filt Rate 105 ml/min
[2024-10-10 11:22] LABS: Alkaline Phosphatase* 88 U/L (40-150); Bilirubin Total* 0.6 mg/dL (0.1-1.5); Glucose* 107 mg/dL (60-115); Lipase* 208 U/L (23-300); Magnesium* 2.1 mg/dL (1.5-2.6); Total Protein* 7.8 g/dL (6.0-8.3)
[2024-10-10 11:25] LABS: Slide Review Reflex No
[2024-10-10 11:36] LABS: Troponin I* < 0.01 ng/mL (0.01-0.04)
[2024-10-10 11:47] LABS: PCR FLU A Negative PCR FLU A (Negative); PCR FLU B Negative PCR FLU B (Negative); PCR RSV Negative PCR RSV (Negative); SARS PCR* Negative SARS-CoV-2 (Negative)
== END 2024-10-10 12:28 | disposition home or self-care (01) ==
PROVIDERS: Emergency Provider Student in an Organized Health Care Education/Training Program; PCP Physician Assistant Medical
DX: K52.9 Noninfective gastroenteritis and colitis, unspecified (principal)
CPT/HCPCS: 36415; 74177; 80053; 81001; 83690; 83735; 84484; 85025; 87631; 96374; 96375; 99284; J2270; J2405; J7120; Q9967

== ENCOUNTER 2024-10-11 09:20 | Inpatient (IN) | payer OTHER, SELFPAY ==
[2024-10-11] VITALS (7 sets, daily range): BP systolic 122–142; BP diastolic 72–92; PULSE 77–87; RESP 16–20; TEMP 36.6–37; O2SAT 95–99; BMI 22.7
--- OUTSIDE RECORDS SUMMARY | 2024-10-11 09:23 | XMS_ITS | Clinical Summary ---
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 Gender Identity Not on file Sexual Orientation [...] component of this testing was completed at [facility] 10/14/2022 2:28 PM CDT [facility] Brushing CERVIX UTERI STRUCTURE / Unknown Non-blood Collection / Unknown 10/09/2022 8:37 AM CDT 10/09/2022 4:25 PM CDT us Ritu Nunez MD LAB - BEAKER AP Final Result [facility] Specialty Lab [address] [facility], [address] [id number], [facility] [phone] * HPV High Risk Types DNA Cervical (10/09/2022 8:37 AM CDT) Other HR HPV Negative Negative 10/16/2022 6:50 AM CDT [facility] HPV16 DNA Negative Negative 10/16/2022 6:50 AM CDT [facility] HPV18 DNA Negative Negative 10/16/2022 6:50 AM CDT [facility] FINAL DIAGNOSIS This patient's sample is negative for HPV DNA. This test was developed and its performance characteristics determined by the [facility], Molecular Diagnostics Laboratory. It has not [...] Result [facility] [address] [facility] [address], [address] [place] [phone], [facility] [phone] * MA Screening Digital Bilateral (10/02/2022 11:58 [...] Most Recently Relevant to Health Maintenance Insurance [employer]
--- NOTE | 2024-10-11 09:51 | ED_ITS ---
HPI - General Adult General Chief complaint: Abdominal Pain Stated complaint: Abdominal pain--partial intestinal blockage Time Seen by Provider: 10/11/24 09:44 History of Present Illness HPI narrative: This 48-year-old female returned from [place], she had been seen in the ER yesterday and had a blood small-bowel obstruction. She got better with medications. It was felt that she could try and go home. She has had increasing distension abdominally, nausea, pain. She has had no fevers or rigors. She has been generally pretty healthy. She was son some anti parasitic medicine from her trip. Dr. Martins was consulted yesterday. Patient reports no chest pain, breathing problem, rigors. Related Data Home Medications ?Medication ?Instructions ?Recorded ?Confirmed ondansetron 4 mg disintegrating 4 mg PO Q6H PRN nausea and vomiting 10/11/24 10/11/24 tablet Allergies Allergy/AdvReac Type Severity Reaction Status Date / Time penicillin V Allergy Intermediate Rash Verified 10/10/24 09:46 erythromycin base Allergy Mild Vomiting Verified 10/10/24 09:46 Review of Systems Status of ROS: Reports: 6 or more systems reviewed and unremarkable except as noted in History and below [facility] Medical History History of migraine headaches ?Z86.69 - Personal history of other diseases of the nervous system and sense organs (ICD-10) Preeclampsia ?O14.90 - Unspecified pre-eclampsia, unspecified trimester (ICD-10) Surgical History History of tonsillectomy ?Z90.89 - Acquired absence of other organs (ICD-10) Family History Father Cancer Alcohol dependence Maternal Grandmother Alzheimers disease Paternal Grandmother Dementia Social History Narrative: . She has 2 daughters. One is at [employer], going to 2024- pursuing occupational therapy. The other is in high school at [place]. Consumes 2-3 drinks per week Runs about 2-3 days per week; rowing as well. 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 What is your current living situation?: I presently have a place to live Problems where you live: no known problems Problems where you live details: none In the past 12 months, utilities in danger of being shut off: no In past 12 months, lack of transportation kept you from medical appts, meetings, work, or getting things needed for daily living: no In the past 12 mos, have been you worried that your food would run out before you had money to buy more?: never true In the past 12 mos, the food you bought just didn't last and you didn't have mon ey to buy more?: never true Highest level of school completed/degree received: Bachelor's degree Physical activity type: running and resistance training How many days of moderate to strenuous exercise, like a brisk walk, did you do in the last 7 days: 3 Smoking Status: Never smoker Do you use any of these nicotine containing products: None Second hand tobacco smoke exposure: No How often do you have a drink containing alcohol: 2-4 times a month How many standard drinks containing alcohol do you have on a typical day: 1 or 2 How often do you have six or more drinks on one occasion: Never AUDIT-C Alcohol total score: 2 Non-prescribed substance use: denies use Caffeine: Yes (1 cup coffee) Are you now , , , , never or living with a partner: Social isolation score (0-1 are the most socially isolated patients): 1 How often does anyone, including family, friends and others, physically hurt you : never How often does anyone, including family, friends and others, insult or talk down to you: never How often does anyone, including family, friends and others, threaten you with harm: never How often does anyone, including family, friends and others, scream or curse at you: never service: No Exam Const: Vital Signs, click to edit/add: Vital Signs - 24 hr 10/11/24 09:37 10/11/24 09:50 10/11/24 12:37 Temperature 98 F Pulse Rate [Pulse Oximeter] 86 78 Respiratory Rate 18 18 Blood Pressure [Le ft Arm] Blood Pressure [Le ft Upper Arm] 122/89 129/87 Pulse Oximetry 98 98 98 Oxygen Delivery Me thod Room Air Room Air 10/11/24 13:25 Temperature 97.8 F Pulse Rate [Pulse Oximeter] 77 Respiratory Rate 16 Blood Pressure [Le ft Arm] 142/92 H Blood Pressure [Le ft Upper Arm] Pulse Oximetry 98 Oxygen Delivery Me thod Room Air Course Vital Signs Vital signs: Initial Vital Signs Temperature 98 F 10/11/24 09:37 Temperature Source Temporal Artery Scan 10/11/24 09:37 Pulse Rate 86 10/11/24 09:37 Respiratory Rate 18 10/11/24 09:37 Blood Pressure 122/89 10/11/24 09:37 Blood Pressure Mean 100 10/11/24 09:37 Pulse Oximetry 98 10/11/24 09:37 Oxygen Delivery Method Room Air 10/11/24 09:37 Vital Signs Temperature 98 F 10/11/24 09:37 Pulse Rate 86 10/11/24 09:37 Respiratory Rate 18 10/11/24 09:37 Blood Pressure 122/89 10/11/24 09:37 Pulse Oximetry 98 10/11/24 09:37 Oxygen Delivery Method Room Air 10/11/24 09:37 Temperature 97.8 F 10/11/24 13:25 Pulse Rate 77 10/11/24 13:25 Respiratory Rate 16 10/11/24 13:25 Blood Pressure 142/92 H 10/11/24 13:25 Pulse Oximetry 98 10/11/24 13:25 Oxygen Delivery Method Room Air 10/11/24 13:25 Medications Administered Medications: Discontinued Medications Generic Name Dose Route Start Last Admin Trade Name Freq PRN Reason Stop Dose Admin Hydromorphone HCl 1 mg 10/11/24 09:50 10/11/24 10:05 Hydromorphone 0.5 Mg/0.5 Ml Inj IVP 10/11/24 09:51 0.5 mg ONCE ONE Administration Morphine Sulfate 4 mg 10/11/24 13:33 10/11/24 13:56 Morphine 4 Mg/Ml Inj IVP 10/11/24 13:34 3.75 mg ONCE ONE Administration Ondansetron HCl 4 mg 10/11/24 09:50 10/11/24 10:03 Ondansetron 2 Mg/Ml Inj IVP 10/11/24 09:51 4 mg ONCE ONE Administration Medical Decision Making MDM Narrative Medical decision making narrative: 48-year-old white female with recent travel to [place] with a small-bowel obstruction. This is noted on CT yesterday patient continues to have symptoms today. I think NPO status IV fluid, surgical consult would be appropriate. Will admit to hospital. Will check labs, hold off on additional CT scanning is given she just had this done yesterday. Lab Data Labs: Lab Results 10/11/24 Range/Units 09:49 WBC 7.87 (4.50-11.00) K/uL RBC 4.45 (4.00-5.20) m/uL Hgb 12.4 (12.0-16.0) gm/dL Hct 37.7 (33.0-51.0) % MCV 85 (80-100) fL MCH 28 (26-34) pg MCHC 33 (32-36) gm/dL RDW Coeff of [place] 14.0 (11.5-15.5) % Plt Count 484 H (140-440) K/uL Neut % (Auto) 80.4 H (42.0-72.0) % Lymph % (Auto) 5.5 L (20-44) % [place] % (Auto) 12.8 H (0.0-11.0) % Eos % (Auto) 0.6 (0.0-7.0) % Baso % (Auto) 0.3 (0.0-3.0) % Neut # (Auto) 6.30 (1.7-7.0) K/uL Lymph # (Auto) 0.40 L (0.90-2.90) K/uL [place] # (Auto) 1.00 H (0.00-0.90) K/UL Eos # (Auto) 0.05 (0.00-0.50) K/uL Baso # (Auto) 0.02 (0.00-0.30) K/uL Abs Immat Gran (auto) 0.03 (0.00-0.30) K/uL Imm/Tot Granulo (auto) 0.4 % Sodium 133 L (135-149) mmol/L Potassium 3.3 L (3.6-5.1) mmol/L Chloride 96 (96-114) mmol/L Carbon Dioxide 20 (20-32) mmol/L Anion Gap 17 H (7-15) mEq/L BUN 18 (7-30) mg/dL Creatinine 0.7 (0.5-1.5) mg/dL Estimated GFR 105 ml/min Glucose 111 (60-115) mg/dL Calcium 9.3 (8.4-10.6) mg/dL Total Bilirubin 0.6 (0.1-1.5) mg/dL Direct Bilirubin 0.4 (0.0-0.5) mg/dL AST 30 (12-35) U/L ALT 21 (4-35) U/L Alkaline Phosphatase 83 (40-150) U/L C-Reactive Protein 16.8 H (0.5-1.0) mg/dL Total Protein 7.7 (6.0-8.3) g/dL Albumin 4.5 (3.3-5.0) g/dL Amylase 124 H (18-89) U/L Discharge Plan Discharge Clinical Impression: SBO (small bowel obstruction) Patient Disposition: Admitted As Observation
--- OUTSIDE RECORDS SUMMARY | 2024-10-11 09:54 | XMS_ITS | Clinical Summary ---
Author Organization [facility] Address [address] [place] [id number] Care Team Providers Care Pedigree Tracer Name Role Phone Unavailable Primary Care Provider [...] on file Legal Sex Female 4:12 AM [employer] Gender Identity Not on file Sexual Orientation [...] component of this testing was completed at [facility] 10/14/2022 2:28 PM CDT SPECIAL[facility] LABS Brushing CERVIX UTERI STRUCTURE / Unknown Non-blood Collection / Unknown 10/09/2022 8:37 AM CDT 10/09/2022 4:25 PM CDT us Ritu Nunez MD LAB - BEAKER AP Final Result SPECIALTY LABS Specialty Lab [address] [facility], [address] [id number], [facility] [phone] * HPV High Risk Types DNA Cervical (10/09/2022 8:37 AM CDT) Other HR HPV Negative Negative 10/16/2022 6:50 AM CDT [facility] HPV16 DNA Negative Negative 10/16/2022 6:50 AM CDT [facility] HPV18 DNA Negative Negative 10/16/2022 6:50 AM CDT [facility]AGNOST[facility] FINAL DIAGNOSIS This patient's sample is negative for HPV DNA. This test was developed and its performance characteristics determined by the [facility], Molecular Diagnostics Laboratory. It has not been [...] Result [facility] DIAGNOST[facility] [address] [facility] [address], [address] [place] [id number], [facility] [phone] * MA Screening Digital Bilateral (10/02/2022 11:58 [...] Most Recently Relevant to Health Maintenance Insurance [employer]
[2024-10-11 10:02] LABS: Basophils Absolute Auto 0.02 K/uL (0.00-0.30); Basophils Percent Auto 0.3 % (0.0-3.0); Eosinophils Absolute Auto 0.05 K/uL (0.00-0.50); Eosinophils Percent Auto 0.6 % (0.0-7.0); Hematocrit 37.7 % (33.0-51.0); Hemoglobin* 12.4 gm/dL (12.0-16.0); Immature Granulocytes Abs Auto 0.03 K/uL (0.00-0.30); Immature Granulocytes Pct Auto 0.4 %; Lymphocytes Percent Auto 5.5 % (20-44); Mean Corpuscular HGB Conc 33 gm/dL (32-36); Mean Corpuscular Hemoglobin 28 pg (26-34); Mean Corpuscular Volume 85 fL (80-100); Monocytes Percent Auto 12.8 % (0.0-11.0); Neutrophils Percent Auto 80.4 % (42.0-72.0); Platelet Count* 484 K/uL (140-440); Red Blood Count 4.45 m/uL (4.00-5.20); White Blood Count* 7.87 K/uL (4.50-11.00)
[2024-10-11] MEDS: ONDANSETRON 2 MG/ML inj 4 MG IVP ×2 (10:03→21:59)
[2024-10-11 10:04] LABS: Slide Review Reflex No
[2024-10-11] MEDS: HYDROmorphone 0.5 mg/0.5 ml inj 1 MG IVP (10:05)
[2024-10-11 10:13] LABS: Albumin* 4.5 g/dL (3.3-5.0); Chloride* 96 mmol/L (96-114)
[2024-10-11 10:14] LABS: Potassium* 3.3 mmol/L (3.6-5.1); Sodium* 133 mmol/L (135-149)
[2024-10-11 10:16] LABS: Amylase* 124 U/L (18-89); Blood Urea Nitrogen* 18 mg/dL (7-30); Creatinine* 0.7 mg/dL (0.5-1.5); Estimated Glomerular Filt Rate 105 ml/min
[2024-10-11 10:17] LABS: Alanine Aminotransferase* 21 U/L (4-35); Alkaline Phosphatase* 83 U/L (40-150); Anion Gap 17 mEq/L (7-15); Aspartate Amino Transferase* 30 U/L (12-35); Bilirubin Direct* 0.4 mg/dL (0.0-0.5); Bilirubin Total* 0.6 mg/dL (0.1-1.5); Calcium* 9.3 mg/dL (8.4-10.6); Carbon Dioxide* 20 mmol/L (20-32); Glucose* 111 mg/dL (60-115); Total Protein* 7.7 g/dL (6.0-8.3)
[2024-10-11 10:39] LABS: C Reactive Protein* 16.8 mg/dL (0.5-1.0)
--- NOTE | 2024-10-11 12:01 | P.GSCN_ITS ---
History of Present Illness Consult details Date Seen: 10/11/24 Consult date: 10/11/24 Narrative: The patient is a 48-year-old female who presented to the emergency department 1st yesterday with diffuse abdominal pain. She recently was in [place] and exactly 1 week ago she developed diarrhea. Approximately 2 days after developing the diarrhea, she then began having severe abdominal pain and bloating. With this she had nausea, vomiting and diarrhea. Because of ongoing symptoms, she was seen at a clinic in [place] and was given medications for bacterial or parasitic infection. She received IV fluids and then she felt good enough to fly home on Wednesday. She was seen in urgent care and later the emergency department because she developed worsening pain. She was found to have dilated small bowel with a transition point in the terminal ileum concerning for terminal ileitis from inflammatory bowel disease or infection. At that time she was having large amounts of diarrhea and felt better after presenting to the emergency department and was discharged home. She continues to have abdominal pain and so returned to the ER today. She states that she had a liquidy bowel movement this morning but has not had anything since. IV pain medication has made her comfortable, however without the pain medication she does have fairly significant pain. She has not had abdominal surgery before. She has never had these symptoms before. She did have a colonoscopy in July of 2023. This was normal except for 2 small polyps which were found and removed. She has a history of iron deficiency anemia. [facility] Medical History History of migraine headaches ?Z86.69 - Personal history of other diseases of the nervous system and sense organs (ICD-10) Preeclampsia ?O14.90 - Unspecified pre-eclampsia, unspecified trimester (ICD-10) Surgical History History of tonsillectomy ?Z90.89 - Acquired absence of other organs (ICD-10) Family History Father Cancer Alcohol dependence Maternal Grandmother Alzheimers disease Paternal Grandmother Dementia Social History Narrative: . She has 2 daughters. One is at [employer] [place], going to 2024- pursuing occupational therapy. The other is in high school at [employer]. Consumes 2-3 drinks per week Runs about 2-3 days per week; rowing as well. 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 What is your current living situation?: I presently have a place to live Problems where you live: no known problems Problems where you live details: none In the past 12 months, utilities in danger of being shut off: no In past 12 months, lack of transportation kept you from medical appts, meetings, work, or getting things needed for daily living: no In the past 12 mos, have been you worried that your food would run out before you had money to buy more?: never true In the past 12 mos, the food you bought just didn't last and you didn't have money to buy more?: never true Highest level of school completed/degree received: Bachelor's degree Physical activity type: running and resistance training How many days of moderate to strenuous exercise, like a brisk walk, did you do in the last 7 days: 3 Smoking Status: Never smoker Do you use any of these nicotine containing products: None Second hand tobacco smoke exposure: No How often do you have a drink containing alcohol: 2-4 times a month How many standard drinks containing alcohol do you have on a typical day: 1 or 2 How often do you have six or more drinks on one occasion: Never AUDIT-C Alcohol total score: 2 Non-prescribed substance use: denies use Caffeine: Yes (1 cup coffee) Are you now , , , , never or living with a partner: Social isolation score (0-1 are the most socially isolated patients): 1 How often does anyone, including family, friends and others, physically hurt you : never How often does anyone, including family, friends and others, insult or talk down to you: never How often does anyone, including family, friends and others, threaten you with harm: never How often does anyone, including family, friends and others, scream or curse at you: never service: No Meds Home Medications and Allergies Home Medications ?Medication ?Instructions ?Recorded ?Confirmed ?Type ondansetron 4 mg disintegrating 4 mg PO Q6H PRN nausea and vomiting 10/11/24 10/11/24 History tablet Allergies Allergy/AdvReac Type Severity Reaction Status Date / Time penicillin V Allergy Intermediate Rash Verified 10/10/24 09:46 erythromycin base Allergy Mild Vomiting Verified 10/10/24 09:46 Exam Narrative: Exam Narrative: General appearance: Alert, cooperative, and in no distress Eyes: PERRLA, eye lids clear, and sclera white HENT Head: Normocephalic Ears: External ears normal Pulmonary: Breathing nonlabored on room air Cardiovascular Heart: Regular rate Extremities: warm and well perfused Gastrointestinal Abdominal: No surgical scars. Abdomen is fairly distended and somewhat firm. She has no guarding or rebound but she is diffusely tender to palpation. Hypoactive bowel sounds. Musculoskeletal: Extremities: Upper: Both upper extremities have normal joint range of motion and intact strength. Lower: Both lower extremities have normal joint range of motion and intact strength. Skin: Normal skin color, texture, and turgor. Neurologic: No focal deficits Psychiatric: Alert, oriented, cooperative, normal affect. Const: Vital Signs, click to edit/add: Vital Signs - 24 hr 10/11/24 09:37 10/11/24 09:50 Temperature 98 F Pulse Rate [Pulse Oximeter] 86 Respiratory Rate 18 Blood Pressure [Le ft Upper Arm] 122/89 Pulse Oximetry 98 98 Oxygen Delivery Me thod Room Air Results Labs Labs: Abnormal lab results 10/11/24 Range/Units 09:49 Plt Count 484 H (140-440) K/uL Neut % (Auto) 80.4 H (42.0-72.0) % Lymph % (Auto) 5.5 L (20-44) % [place] % (Auto) 12.8 H (0.0-11.0) % Lymph # (Auto) 0.40 L (0.90-2.90) K/uL [place] # (Auto) 1.00 H (0.00-0.90) K/UL Sodium 133 L (135-149) mmol/L Potassium 3.3 L (3.6-5.1) mmol/L Anion Gap 17 H (7-15) mEq/L C-Reactive Protein 16.8 H (0.5-1.0) mg/dL Amylase 124 H (18-89) U/L Diabetes panel 10/11/24 Range/Units 09:49 Sodium 133 L (135-149) mmol/L Potassium 3.3 L (3.6-5.1) mmol/L Chloride 96 (96-114) mmol/L Carbon Dioxide 20 (20-32) mmol/L BUN 18 (7-30) mg/dL Creatinine 0.7 (0.5-1.5) mg/dL Glucose 111 (60-115) mg/dL Calcium 9.3 (8.4-10.6) mg/dL AST 30 (12-35) U/L ALT 21 (4-35) U/L Alkaline Phosphatase 83 (40-150) U/L Total Protein 7.7 (6.0-8.3) g/dL Albumin 4.5 (3.3-5.0) g/dL Calcium panel 10/11/24 Range/Units 09:49 Calcium 9.3 (8.4-10.6) mg/dL Albumin 4.5 (3.3-5.0) g/dL Pituitary panel 10/11/24 Range/Units 09:49 Sodium 133 L (135-149) mmol/L Potassium 3.3 L (3.6-5.1) mmol/L Chloride 96 (96-114) mmol/L Carbon Dioxide 20 (20-32) mmol/L BUN 18 (7-30) mg/dL Creatinine 0.7 (0.5-1.5) mg/dL Glucose 111 (60-115) mg/dL Calcium 9.3 (8.4-10.6) mg/dL Adrenal panel 10/11/24 Range/Units 09:49 Sodium 133 L (135-149) mmol/L Potassium 3.3 L (3.6-5.1) mmol/L Chloride 96 (96-114) mmol/L Carbon Dioxide 20 (20-32) mmol/L BUN 18 (7-30) mg/dL Creatinine 0.7 (0.5-1.5) mg/dL Glucose 111 (60-115) mg/dL Calcium 9.3 (8.4-10.6) mg/dL Total Bilirubin 0.6 (0.1-1.5) mg/dL AST 30 (12-35) U/L ALT 21 (4-35) U/L Alkaline Phosphatase 83 (40-150) U/L Total Protein 7.7 (6.0-8.3) g/dL Albumin 4.5 (3.3-5.0) g/dL All other labs normal. Imaging Abdomen CT scan report/results: report reviewed and image reviewed Additional studies: CT scan of the abdomen: IMPRESSION: 1. Dilated loops of small bowel consistent with small-bowel obstruction. This transitions at the point of the terminal ileum which appears diminutive in caliber with hyperenhancement, irregularity of its` wall as well as the question of small sinus tracts in the adjacent mesentery. Appearance is suspicious for inflammatory bowel disease/Crohn`s disease as the underlying etiology of the obstruction. Differential diagnosis would include an infectious enteritis involving the terminal ileum. Associated trace ascites. 2. Somewhat globular lobulated hypodensity at the fundus of the uterus. This is inseparable from the endometrium and can represent diffuse endometrial thickening versus leiomyomata. Suggest follow-up outpatient pelvic ultrasound for further characterization. Dictated by Favio Castaneda MD @ 10/10/2024 11:47:39 AM Progress Note:A&P Assessment and plan (1) SBO (small bowel obstruction): Status: Acute (2) Enteritis: Status: Acute Plan The patient is a 48-year-old female who appears to have a bowel obstruction from likely inflammatory bowel disease versus infectious enteritis. I reviewed the patient's images with Radiology. Timing of recent trip to [place] and lack of prior symptoms makes infectious enteritis more likely. Recommend supportive cares with IV fluids. Would treat for infectious enteritis and obtain a stool sample if possible. -if patient has continued pain and nausea then I recommend NG tube placement. -will consider Gastrografin challenge but given her distension and nausea as well as pain I would recommend NG tube placement first.
[2024-10-11] MEDS: MORPHINE 4 MG/ML INJ IVP (13:56)
--- NOTE | 2024-10-11 15:15 | PC.NURSE ---
End of shift report: Patient is a new admit of today with a SBO. Initally had no pain when she arrived. This started to creep up after being here a bit. Morphine was given for this. Patient did get nauseous right away after medications but this resolved. Patient voided X1. Has period so there is blood in urine. No BM this shift but needs a stool sample if she goes. Patient is aware of this. New PIV placed in left forearm per patient request. Maintenance fluids were started. Lung sounds clear. VSS. Patients is here and supportive. Patient stomach is very distended. Absent bowel sounds in lower quadrants but heard them in right upper quadrant. No open skin areas. Patient is alert and oriented and pleasant.
[2024-10-11] MEDS: 0.9 % SODIUM CHLORIDE 1000 ml 1,000 ML IV (15:40)
--- NOTE | 2024-10-11 15:44 | P.IMHP_ITS ---
Assessment and Plan Assessment and plan (1) SBO (small bowel obstruction): Problem comment: -CT shows Dilated loops of small bowel consistent with small-bowel obstruction VS. Infectious enteritis involving the terminal ileum which is within the DDX -no history of abdominal surgeries, no previous h/o abdominal symptomatology/complications -NPO, IVF -azithromycin 500 mg IV to cover for potential infectious enteritis - using antiemetics given known erythromycin allergy of vomiting -pain and nausea management as needed -C difficile, ova and parasite, stool culture/GI pathogens ordered -FOBT ordered given report of black stool this morning -encourage frequent ambulation -discussed with Dr. Bradford, General Surgery, in agreement with plan. Also noted on CT appearance is suspicious for inflammatory bowel disease/Crohn`s disease as the underlying etiology of the obstruction - thought to be less likely and more likely infectious enteritis given recent travel and no previous abdominal concerns -recommends NGT if frequent use of morphine or uncontrolled/worsening pain given significant abdominal distention Status: Acute (2) Hypokalemia: Problem comment: -mild, 3.3, replace with 2 IV bumps while NPO Status: Acute Total Time Spent Total Time Spent: Today I spent 75 minutes seeing the patient, reviewing Expanse and EPIC notes/diagnostics, discussing the care plan with our care time that includes social work, PT/OT, pharmacy, RT, residential and documenting my impressions and plan in the medical record. Hospitalist- H&P: HPI History of Present Illness Date Seen: 10/11/24 Chief complaint: Abdominal pain--partial intestinal blockage Narrative: Walter Hickman is a 48 year old female no significant chronic past medical history, not currently on any prescription medications is admitted to the medical floor from the ED for further management small bowel obstruction following failed outpatient therapy. Patient reports onset of symptoms Wednesday09/08/2024 while in [place]. Noticed bloating of her abdomen. Started Dulcolax and Gas-X. By Wednesday was having significant pain and unable to fly back to the [place] Was seen in a clinic in [place] and given 1 bag of IV antibiotics as well as anti parasitic. She felt well enough to fly home on Wednesday. Seen in the ED yesterday on 10/10/2024 and was sent home with antiemetics and instructions for clear liquid diet only. She adhered to this but by midnight was vomiting and experiencing increased abdominal pain and bloating. She had 1 small liquid stool today which she described as nearly black. Her last stool while in [place] was also loose but s[place] in color. She last vomited while in the ED. she remains quite bloated. Abdominal pain has improved with IV narcotics. Nausea resolved following Zofran. Denies headaches or dizziness. Denies recent fevers or chills. Denies chest pain or shortness of breath. No change in urination other than decreased secondary to decreased oral intake. In general, feels fatigued. No history of abdominal surgeries. No previous h/o abdominal concerns. Reports consuming a clean diet and exercises regularly. Does not take any prescription medications. Denies any new supplements/vitamins. While in [place], avoided tap conde. Alcohol consumption was not excessive. Her as well as other traveler's have not become ill. Non smoker. ETOH 2-3 drinks/week. PCP is Miracle Brennan. Review of Systems Narrative: REVIEW OF SYSTEMS: Complete review of systems performed and negative unless otherwise stated in HPI or below. [facility] Medical History History of migraine headaches ?Z86.69 - Personal history of other diseases of the nervous system and sense organs (ICD-10) Preeclampsia ?O14.90 - Unspecified pre-eclampsia, unspecified trimester (ICD-10) Surgical History History of tonsillectomy ?Z90.89 - Acquired absence of other organs (ICD-10) Family History Father Cancer Alcohol dependence Maternal Grandmother Alzheimers disease Paternal Grandmother Dementia Social History Narrative: . She has 2 daughters. One is at [employer], going to 2024- pursuing occupational therapy. The other is in high school at [employer]. Consumes 2-3 drinks per week Runs about 2-3 days per week; rowing as well. 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 What is your current living situation?: I presently have a place to live Problems where you live: no known problems Problems where you live details: none In the past 12 months, utilities in danger of being shut off: no In past 12 months, lack of transportation kept you from medical appts, meetings, work, or getting things needed for daily living: no In the past 12 mos, have been you worried that your food would run out before you had money to buy more?: never true In the past 12 mos, the food you bought just didn't last and you didn't have money to buy more?: never true Highest level of school completed/degree received: Bachelor's degree Physical activity type: running and resistance training How many days of moderate to strenuous exercise, like a brisk walk, did you do in the last 7 days: 3 Smoking Status: Never smoker Do you use any of these nicotine containing products: None Second hand tobacco smoke exposure: No How often do you have a drink containing alcohol: 2-4 times a month How many standard drinks containing alcohol do you have on a typical day: 1 or 2 How often do you have six or more drinks on one occasion: Never AUDIT-C Alcohol total score: 2 Non-prescribed substance use: denies use Caffeine: Yes (1 cup coffee) Are you now , , , , never or living with a partner: Social isolation score (0-1 are the most socially isolated patients): 1 How often does anyone, including family, friends and others, physically hurt you : never How often does anyone, including family, friends and others, insult or talk down to you: never How often does anyone, including family, friends and others, threaten you with harm: never How often does anyone, including family, friends and others, scream or curse at you: never service: No Meds Home Medications and Allergies Home Medications ?Medication ?Instructions ?Recorded ?Confirmed ?Type ondansetron 4 mg disintegrating 4 mg PO Q6H PRN nausea and vomiting 10/11/24 10/11/24 History tablet Home Medication Comments: No prescription medications. Denies new OTCs/supplements Allergies Allergy/AdvReac Type Severity Reaction Status Date / Time penicillin V Allergy Intermediate Rash Verified 10/10/24 09:46 erythromycin base Allergy Mild Vomiting Verified 10/10/24 09:46 Exam Narrative: Exam Narrative: PHYSICAL EXAM General: Pleasant, conversant, NAD HEENT: Normocephalic, atraumatic, sclera white, EOMI, oral mucosa moist Cardiovascular: RRR, S1S2. No pitting edema Pulmonary: CTA bilaterally without rhonchi, rales, expiratory wheezes. No dyspnea Abdominal: Distended, generalized tenderness without guarding, bowel sounds present lower quadrants Neurological: Alert, answering questions appropriately, cranial nerves intact, no focal findings Extremities: No gross joint deformity or swelling. AROMI. Neurovascularly intact Skin: Warm, dry. Const: Vital Signs, click to edit/add: Vital Signs - 24 hr 10/11/24 09:37 10/11/24 09:50 10/11/24 12:37 Temperature 98 F Pulse Rate [Pulse Oximeter] 86 78 Respiratory Rate 18 18 Blood Pressure [Le ft Arm] Blood Pressure [Le ft Upper Arm] 122/89 129/87 Pulse Oximetry 98 98 98 Oxygen Delivery Me thod Room Air Room Air 10/11/24 13:25 Temperature 97.8 F Pulse Rate [Pulse Oximeter] 77 Respiratory Rate 16 Blood Pressure [Le ft Arm] 142/92 H Blood Pressure [Le ft Upper Arm] Pulse Oximetry 98 Oxygen Delivery Me thod Room Air Hospitalist - H&P: Result Labs Labs: Short CBC 10/11/24 Range/Units 09:49 WBC 7.87 (4.50-11.00) K/uL Hgb 12.4 (12.0-16.0) gm/dL Hct 37.7 (33.0-51.0) % Plt Count 484 H (140-440) K/uL BMP 10/11/24 09:49 Sodium 133 L Potassium 3.3 L Chloride 96 Carbon Dioxide 20 BUN 18 Creatinine 0.7 Glucose 111 Calcium 9.3 Liver Function 10/11/24 Range/Units 09:49 Total Bilirubin 0.6 (0.1-1.5) mg/dL Direct Bilirubin 0.4 (0.0-0.5) mg/dL AST 30 (12-35) U/L ALT 21 (4-35) U/L Alkaline Phosphatase 83 (40-150) U/L Albumin 4.5 (3.3-5.0) g/dL ECG Attestation: I personally reviewed and interpreted this ECG as follows: ECG interpretation date: 10/11/24 Interpretation: NSR, rate 81, QTC [address] abdomen pelvis: Attestation: I have reviewed the pertinent imaging results. Radiologist's impression: Lower chest: Areas of discoid atelectasis lung bases. Liver: Unremarkable. Normal in size and attenuation. No masses. Gallbladder and bile ducts: Unremarkable. No stones or inflammation. No biliary dilatation. Spleen: Unremarkable. Normal in size without mass. Pancreas: Unremarkable. No mass or inflammation. Adrenal glands: Unremarkable. No nodules. Kidneys: Unremarkable. No masses, stones, or hydronephrosis. Vasculature: Unremarkable. GI tract: Small ascites with dilated loops of small bowel extending to the level of the terminal ileum. At this level the terminal ileum is decompressed with somewhat irregular appearance of the wall and hyperenhancement (series 2, image 105). Possible small sinus tract is questioned. No definite abscess. No pneumoperitoneum. Some hyperenhancement of the colon although the colon is decompressed. Subcentimeter mesenteric lymph nodes. Pelvis: Retroverted uterus with somewhat amorphous hypodensities which may represent prominence of the endometrium versus underlying leiomyomata. Bones: Unremarkable for age. IMPRESSION: 1. Dilated loops of small bowel consistent with small-bowel obstruction. This transitions at the point of the terminal ileum which appears diminutive in caliber with hyperenhancement, irregularity of its` wall as well as the question of small sinus tracts in the adjacent mesentery. Appearance is suspicious for inflammatory bowel disease/Crohn`s disease as the underlying etiology of the obstruction. Differential diagnosis would include an infectious enteritis involving the terminal ileum. Associated trace ascites. 2. Somewhat globular lobulated hypodensity at the fundus of the uterus. This is inseparable from the endometrium and can represent diffuse endometrial thickening versus leiomyomata. Suggest follow-up outpatient pelvic ultrasound for further characterization.
[2024-10-11 16:06] LABS: Magnesium* 2.1 mg/dL (1.5-2.6)
[2024-10-11] MEDS: 0.9 % SODIUM CHLORIDE 1000 ml 1,000 ML 125 ML IV (17:16)
[2024-10-11] MEDS: POTASSIUM CHLORIDE 10 MEQ, LIDOCAINE 1 % 1 ML in 0.9 % SODIUM CHLORIDE 100 ml 100 ML 105 MEQ IVPB ×2 (18:07→19:41)
--- NOTE | 2024-10-11 18:48 | PC.NURSE ---
End of Shift Note: Patient has done fairly well. We did start her infusion of potassium but did not tolerate it so slow rate down and put a warm blanket on her arm and even had it Y-sited. Consulted with pharmacy and stopped the bag as she did not get much and pharmacy mixed a bag of potassium up with lidocaine and she is tolerating this infusion now. She is needing something for pain will give pain medication and give report to next shift.
[2024-10-11] MEDS: MORPHINE 4 MG/ML INJ 2 MG IVP (19:31)
[2024-10-11] MEDS: SODIUM CHLORIDE 0.9 % (FLUSH) 10 ML SYRINGE 5 ML IVF (21:31)
[2024-10-11] MEDS: AZITHROMYCIN 500 MG in 0.9 % SODIUM CHLORIDE 250 ml 250 ML 255 MG IVPB (21:31)
--- NOTE | 2024-10-11 22:30 | CRLHL7_ITS ---
For Patients: As a result of the Century Cures Act, medical imaging exams and procedure reports are released immediately into your electronic medical record. You may view this report before your referring provider. If you have questions, please contact your health care provider. Indication: NG tube placement. Technique: Abdomen 1 view. Comparison: CT abdomen and pelvis 10/10/2024. Findings/Impression: Enteric tube tip projects over the proximal stomach; however, the side port projects over the gastroesophageal junction. Recommend advancement by 5-7 cm. Multiple dilated loops of small bowel within the central abdomen, compatible with small bowel obstruction. No evidence for free air. The imaged lung bases are clear. The osseous structures are unremarkable for age. Dictated by Cali Abel MD @ 10/12/2024 12:00:34 AM (Electronically Signed)
[2024-10-11] MEDS: LORazepam 2 MG/ML inj 0.25 MG IVP (22:59)
[2024-10-11] MEDS: LORazepam 2 MG/ML inj 0.5 MG IVP (23:27)
[2024-10-12 03:00] VITALS: BP 126/80; PULSE 103; RESP 16; TEMP 37; O2SAT 99
[2024-10-12] MEDS: MORPHINE 4 MG/ML INJ 2 MG IVP ×3 (03:33→21:36)
[2024-10-12] MEDS: SODIUM CHLORIDE 0.9 % (FLUSH) 10 ML SYRINGE 5 ML IVF ×3 (03:34→17:30)
[2024-10-12] MEDS: 0.9 % SODIUM CHLORIDE 1000 ml 1,000 ML 125 ML IV ×3 (05:13→21:43)
--- NOTE | 2024-10-12 06:02 | PC.NURSE ---
End of shift report [id number]: Pleasant and cooperative with cares. Patient is alert and oriented x 4. Pain to abdomen well managed with current regimen. Abdomen is round, firm and distended. Bowel sounds hypoactive in upper quadrants and absent in lower quadrants. At 2200 patient reporting nausea, PRN zofran administered. At 2220 patient had emesis of 450ml of brown, thin liquid that had the odor of fecal matter. Britney Veliz updated and new order to place NG tube and PRN lorazepam 0.25mg prior to NG placement for comfort. Regular Senior Care Provider attempted to place 16fr NG in right nare without success. New order for additional 0.5mg lorazepam prior to 2nd NG attempt. Patient had a second bout of emsis of 175ml of brown, thin liquid prior to NG being placed to suction. 14fr NG to LIS successfully placed in left nare, at 54cm depth and confirmed via x-ray, patient tolerated procedure well. NG had intitial 650ml of thin, brown liquid return in first 60 minutes after placement and an additional 600ml from 4903-2411. Abdomen continues to be distended, palpation reveal softer feel to abdomen and patient reporting the full and pressure feeling is subsiding. Bowel sounds continue to be hypoactive in upper quadrants and absent in lower quadrants. No further nausea or vomiting. Transfers and ambulates independently after assistance with clamping NG. Regular Senior Care Provider noted blood in urine left in toilet hat, patient reports that she is currently menstruating.
[2024-10-12 06:40] LABS: Hematocrit 30.6 % (33.0-51.0); Hemoglobin* 9.9 gm/dL (12.0-16.0); Mean Corpuscular HGB Conc 32 gm/dL (32-36); Mean Corpuscular Hemoglobin 28 pg (26-34); Mean Corpuscular Volume 86 fL (80-100); Platelet Count* 393 K/uL (140-440); Red Blood Count 3.55 m/uL (4.00-5.20); White Blood Count* 5.54 K/uL (4.50-11.00)
[2024-10-12 07:01] LABS: Chloride* 104 mmol/L (96-114); Sodium* 135 mmol/L (135-149)
[2024-10-12 07:02] LABS: Potassium* 3.4 mmol/L (3.6-5.1)
[2024-10-12 07:04] LABS: Blood Urea Nitrogen* 19 mg/dL (7-30); Creatinine* 0.5 mg/dL (0.5-1.5); Est. Creatinine Clearance* 116.24; Estimated Glomerular Filt Rate 114 ml/min
[2024-10-12 07:05] LABS: Anion Gap 9 mEq/L (7-15); Carbon Dioxide* 22 mmol/L (20-32); Glucose* 79 mg/dL (60-115)
[2024-10-12 07:25] LABS: Slide Review Reflex No
[2024-10-12 08:01] LABS: C Reactive Protein* 13.8 mg/dL (0.5-1.0)
[2024-10-12 08:02] VITALS: BP 130/81; PULSE 94; RESP 16; TEMP 36.4; O2SAT 96
--- NOTE | 2024-10-12 08:06 | CRLHL7_ITS ---
For Patients: As a result of the Century Cures Act, medical imaging exams and procedure reports are released immediately into your electronic medical record. You may view this report before your referring provider. If you have questions, please contact your health care provider. INDICATION: SBO. (Sic) COMPARISON: 10/11/2024. Abdominopelvic CT dated 10/10/2024. TECHNIQUE: One view (2 images) FINDINGS: As discussed below: IMPRESSION: 1. In-situ nasogastric tube. The radiolucent side hole again projects above the diaphragmatic hiatus, likely above the gastroesophageal junction, with the tip below the diaphragm superimposed upon the nondilated gastric air bubble. 2. Unchanged segmental small bowel dilatation in the central abdomen consistent with a mechanical bowel obstruction. Otherwise, there is a paucity of small bowel gas corresponding to succus entericus throughout the dilated small bowel as demonstrated on the abdominopelvic CT of 10/10/2024. Dictated by Abilio Weathers MD @ 10/12/2024 9:22:46 AM (Electronically Signed)
--- NOTE | 2024-10-12 11:12 | CRLHL7_ITS ---
For Patients: As a result of the Century Cures Act, medical imaging exams and procedure reports are released immediately into your electronic medical record. You may view this report before your referring provider. If you have questions, please contact your health care provider. INDICATION: Reassess nasogastric tube placement. COMPARISON: 10/12/2024 0854 hours. TECHNIQUE: Portable supine abdominal radiograph performed at 1147 hours as annotated on the image. FINDINGS: As discussed below: Please note this examination was placed on the STAT list for interpretation on 10/13/2024 at 0644 hours. IMPRESSION: 1. The nasogastric tube has been advanced in the interval since the prior study with the radiolucent side hole and tip now overlying the stomach in the left upper quadrant. 2. Persistent small bowel dilatation in the left upper abdomen. 3. Streaky retrocardiac opacities are consistent with left lower lobe subsegmental atelectasis. Dictated by Abilio Weathers MD @ 10/13/2024 6:45:46 AM (Electronically Signed)
--- NOTE | 2024-10-12 11:12 | P.IMPN_ITS ---
Assessment and Plan Assessment and plan (1) SBO (small bowel obstruction): Problem comment: - NG placed 10/11/24 pm - CT: Dilated loops of small bowel consistent with small-bowel obstruction VS. Infectious enteritis involving the terminal ileum which is within the DDX - no history of abdominal surgeries, reassuring colonoscopy last year, no history of rashes/arthritis, no family history of IBD - NPO, IVF, antiemetics and pain management - azithromycin 500 mg IV x3d to cover for potential infectious enteritis given recent travel to - stool studies ordered (has not had any BMs since admission) - Dr. Bradford of General Surgery also following Status: Acute (2) Hypokalemia: Problem comment: - replace and follow Status: Acute (3) Enteritis: Status: Acute Plan - per above - updated bedside, questions answered Subjective Date Seen: 10/12/24 Interval history: Walter was admitted to the hospital last night for a small bowel obstruction in the setting of recent GI illness. No previous SBO, no previous abdominal surgeries. Timeline of symptoms: Illness began while on vacation in [facility] () and seen by a medical clinic there on 10/08 for 2 days of severe n/v/d. She received IVFs in addition to an IV antiparasitic and IV antibiotic, was able to fly home on 10/09 but symptoms worsened (vomiting, stopped having stools). Seen in ER 10/10, diagnosed with SBO, discharged home on oral Zofran and clear liquid diet. Symptoms worsened, re-presented 10/11 with intractable, feculent vomiting. Admitted and NG tube placed overnight. This morning, Walter is feeling significantly better. Dr. Bradford of General Surgery also following. Exam Narrative: Exam Narrative: GEN: Alert and oriented, answering questions appopriately HEENT: EOMIs bilaterally, no scleral icterus CV: RRR, No concerning murmurs R: LCTA bilaterally without concerning wheezing Ab: Mild distention (improved from previous, per patient), hypoactive bowel sounds Ext: wwp, no concerning edema Skin: No concerning skin lesions or rashes on exposed skin Neuro: Nonfocal Psych: Appropriate Const: Vital Signs, click to edit/add: Vital Signs - 24 hr 10/11/24 12:37 10/11/24 13:25 10/11/24 15:42 Temperature 97.8 F 98.6 F Pulse Rate [Pulse Oximeter] 78 77 80 Respiratory Rate 18 16 20 Blood Pressure [Le ft Arm] 142/92 H 123/72 Blood Pressure [Le ft Upper Arm] 129/87 Pulse Oximetry 98 98 97 Oxygen Delivery La thod Room Air Room Air Room Air 10/11/24 19:00 10/11/24 23:00 10/11/24 23:00 Temperature 98.4 F 98.4 F Pulse Rate [Pulse Oximeter] 87 87 86 Respiratory Rate 16 18 18 Blood Pressure [Le ft Arm] 139/75 135/80 Blood Pressure [Le ft Upper Arm] Pulse Oximetry 99 95 Oxygen Delivery La thod Room Air Room Air 10/12/24 03:00 10/12/24 08:02 Temperature 98.6 F 97.5 F L Pulse Rate [Pulse Oximeter] 103 H 94 Respiratory Rate 16 16 Blood Pressure [Le ft Arm] 126/80 130/81 Blood Pressure [Le ft Upper Arm] Pulse Oximetry 99 96 Oxygen Delivery La thod Room Air Room Air Labs Labs: Laboratory Results - last 24 hr 10/11/24 10/11/24 10/12/24 09:49 15:42 06:09 WBC 5.54 RBC 3.55 L Hgb 9.9 L Hct 30.6 L MCV 86 MCH 28 MCHC 32 Plt Count 393 Sodium 135 Potassium 3.4 L Chloride 104 Carbon Dioxide 22 Anion Gap 9 BUN 19 Creatinine 0.5 Estimated Creat Clear 116.24 Estimated GFR 114 Glucose 79 Calcium 8.0 L Magnesium 2.1 C-Reactive Protein 13.8 H Lab Acknowledgement Test Added
--- NOTE | 2024-10-12 11:42 | PM.GSPN ---
Subjective Subjective Date Seen: 10/12/24 Interval history: NG tube placed overnight. Patient had significant relief. 2 L of output from NG tube. She feels much better. Exam Narrative: Exam Narrative: NG in place with bilious output abdomen: remains distended and very mildly tender but much softer today. Const: Vital Signs, click to edit/add: Vital Signs - 24 hr 10/11/24 12:37 10/11/24 13:25 10/11/24 15:42 Temperature 97.8 F 98.6 F Pulse Rate [Pulse Oximeter] 78 77 80 Respiratory Rate 18 16 20 Blood Pressure [Le ft Arm] 142/92 H 123/72 Blood Pressure [Le ft Upper Arm] 129/87 Pulse Oximetry 98 98 97 Oxygen Delivery Me thod Room Air Room Air Room Air 10/11/24 19:00 10/11/24 23:00 10/11/24 23:00 Temperature 98.4 F 98.4 F Pulse Rate [Pulse Oximeter] 87 87 86 Respiratory Rate 16 18 18 Blood Pressure [Le ft Arm] 139/75 135/80 Blood Pressure [Le ft Upper Arm] Pulse Oximetry 99 95 Oxygen Delivery Me thod Room Air Room Air 10/12/24 03:00 10/12/24 08:02 Temperature 98.6 F 97.5 F L Pulse Rate [Pulse Oximeter] 103 H 94 Respiratory Rate 16 16 Blood Pressure [Le ft Arm] 126/80 130/81 Blood Pressure [Le ft Upper Arm] Pulse Oximetry 99 96 Oxygen Delivery Me thod Room Air Room Air Labs/Imaging Labs Labs: White blood cell count is normal at 5.5 though hemoglobin is 9.9 from 12; likely some dilution. CRP is 13 from 16 Imaging Imaging: X-ray abdomen done this morning: IMPRESSION: 1. In-situ nasogastric tube. The radiolucent side hole again projects above the diaphragmatic hiatus, likely above the gastroesophageal junction, with the tip below the diaphragm superimposed upon the nondilated gastric air bubble. 2. Unchanged segmental small bowel dilatation in the central abdomen consistent with a mechanical bowel obstruction. Otherwise, there is a paucity of small bowel gas corresponding to succus entericus throughout the dilated small bowel as demonstrated on the abdominopelvic CT of 10/10/2024. Dictated by Abilio Weathers MD @ 10/12/2024 9:22:46 AM Progress Note:A&P Assessment and plan (1) Hypokalemia: Status: Acute (2) SBO (small bowel obstruction): Status: Acute (3) Enteritis: Status: Acute (4) Anemia: Status: Acute Plan The patient is a 48-year-old female with recent international travel and nausea, vomiting and diarrhea with imaging findings concerning for bowel obstruction possibly secondary to terminal ileitis from infectious or inflammatory bowel disease etiology. -she feels significantly better with an NG tube. -I discussed management of bowel obstruction with the patient and her . Given the possible inflammatory nature of the obstruction I would recommend an even more conservative approach, however, certainly if she fails to improve after several days of NG decompression then surgery may be warranted. -we discussed Gastrografin challenge today and the rationale behind that. -will plan on Gastrografin administration and x-ray follow-up can be in the morning.
[2024-10-12 11:59] VITALS: BP 132/77; PULSE 84; RESP 16; TEMP 37; O2SAT 97
[2024-10-12 15:00] VITALS: PULSE 84; RESP 16
[2024-10-12] MEDS: ONDANSETRON 2 MG/ML inj 4 MG IVP (16:41)
[2024-10-12] MEDS: DIATRIZOATE MEGLUMINE, SODIUM 120 ML SOLUTION 90 ML NG (16:52)
--- NOTE | 2024-10-12 18:52 | PC.NURSE ---
Pt pleasant to care for. VSS. Pain controlled with PRN morphine, heating pad and ambulating in the halls. at bedside. Pt denies nausea this shift. No emesis or bowel movement. Pt stated she passed gas once while walking the halls. Bowels are hypoactive x4. At 1050, NG was advanced to 58cm and confirmed via XRay. Gastrografin challenge was initiated at 1430: continuous suction, 1430 - 1630; gastrografin administered at 1700; NG tube was clamped; abd XR order was placed for 10/13/24 @ 0700. Pt is resting well at this time.
[2024-10-12] MEDS: AZITHROMYCIN 500 MG in 0.9 % SODIUM CHLORIDE 250 ml 250 ML 255 MG IVPB (21:04)
[2024-10-12 23:00] VITALS: BP 134/79; PULSE 92; RESP 19; TEMP 37.2; O2SAT 97
[2024-10-13 02:41] VITALS: BP 142/83; PULSE 96; RESP 18; TEMP 36.8; O2SAT 98
[2024-10-13] MEDS: 0.9 % SODIUM CHLORIDE 1000 ml 1,000 ML 125 ML IV ×2 (06:01→15:37)
--- NOTE | 2024-10-13 06:28 | PC.NURSE ---
Shift note ([id number]): Patient pleasant, alert and oriented.?Ambulated independently with in hallways. Rated pain 0-7/10 during shift. Given PRN Oxycodone for abdominal pain rated 7/10. Tolerating sips and chips. Bowel sounds hypoactive in upper right quadrant; active in all other quadrants. No BM this shift. Total nasogastric fluid output this shift 2200 mL .?
[2024-10-13 06:35] LABS: Basophils Absolute Auto 0.02 K/uL (0.00-0.30); Basophils Percent Auto 0.3 % (0.0-3.0); Eosinophils Absolute Auto 0.12 K/uL (0.00-0.50); Eosinophils Percent Auto 1.6 % (0.0-7.0); Hematocrit 33.9 % (33.0-51.0); Hemoglobin* 10.7 gm/dL (12.0-16.0); Immature Granulocytes Abs Auto 0.13 K/uL (0.00-0.30); Immature Granulocytes Pct Auto 1.8 %; Lymphocytes Percent Auto 7.8 % (20-44); Mean Corpuscular HGB Conc 32 gm/dL (32-36); Mean Corpuscular Hemoglobin 28 pg (26-34); Mean Corpuscular Volume 88 fL (80-100); Monocytes Percent Auto 12.7 % (0.0-11.0); Neutrophils Percent Auto 75.8 % (42.0-72.0); Platelet Count* 434 K/uL (140-440); RDW Coefficient of Variation % 14.3 % (11.5-15.5); Red Blood Count 3.85 m/uL (4.00-5.20); White Blood Count* 7.33 K/uL (4.50-11.00)
[2024-10-13 06:38] LABS: Slide Review Reflex No
[2024-10-13 06:54] LABS: Chloride* 104 mmol/L (96-114); Potassium* 3.3 mmol/L (3.6-5.1); Sodium* 135 mmol/L (135-149)
[2024-10-13 06:57] LABS: Anion Gap 13 mEq/L (7-15); Blood Urea Nitrogen* 12 mg/dL (7-30); Calcium* 8.5 mg/dL (8.4-10.6); Carbon Dioxide* 18 mmol/L (20-32); Creatinine* 0.5 mg/dL (0.5-1.5); Est. Creatinine Clearance* 116.24; Estimated Glomerular Filt Rate 114 ml/min; Glucose* 69 mg/dL (60-115)
--- NOTE | 2024-10-13 06:57 | PC.NURSE ---
Shift note ([id number]): Patient pleasant, alert and oriented.?Ambulated independently with in hallways. Rated pain 0-7/10 during shift. Given PRN Morphine for abdominal pain rated 7/10. Tolerating sips and chips. Bowel sounds hypoactive in upper right quadrant; active in all other quadrants. No BM this shift. Total nasogastric fluid output this shift 2200 mL .?
[2024-10-13 07:00] VITALS: BP 122/70; PULSE 93; RESP 18; TEMP 36.6; O2SAT 97
--- NOTE | 2024-10-13 07:00 | CRLHL7_ITS ---
For Patients: As a result of the Century Cures Act, medical imaging exams and procedure reports are released immediately into your electronic medical record. You may view this report before your referring provider. If you have questions, please contact your health care provider. INDICATION: SBO, GASTRO CHALLENGE. (Sic) COMPARISON: 10/12/2024 at 1147 hours, as annotated on that image. TECHNIQUE: One view (AP supine radiograph of the abdomen and pelvis) 0610 hours. FINDINGS: As discussed below: IMPRESSION: 1. No visible enteric contrast. Persistently dilated small bowel in the central abdomen. In-situ nasogastric tube Dictated by Abilio Weathers MD @ 10/13/2024 6:48:24 AM (Electronically Signed)
[2024-10-13 07:18] LABS: C Reactive Protein* 16.2 mg/dL (0.5-1.0)
--- NOTE | 2024-10-13 08:27 | P.IMPN_ITS ---
Assessment and Plan Assessment and plan (1) SBO (small bowel obstruction): Problem comment: - first episode - no history of abdominal surgeries, reassuring colonoscopy last year, no history of rashes/arthritis, no family history of IBD - NG placed 10/11/24 pm - NPO, IVF, antiemetics and pain management - azithromycin 500 mg IV x 3 doses to cover for potential infectious enteritis given recent travel to [facility] also following Status: Acute (2) Hypokalemia: Problem comment: - replace and follow, normal Magnesium Status: Acute (3) Abnormal CT scan: Problem comment: - hypodensity at uterine fundus on CT scan 10/10 - patient aware, will need outpatient f/u with Gynecology (still having menses) Status: Acute (4) Anemia: Problem comment: - noted since 2022 - normocytic, normal TIBC (ferritin not checked) in July 2024: unlikely iron deficiency - needs further outpatient workup when not acutely ill Status: Acute Plan - per above - PPI and Lovenox for ppx Subjective Date Seen: 10/13/24 Interval history: Walter was admitted to the hospital last night for a small bowel obstruction in the setting of recent GI illness. No previous SBO, no previous abdominal surgeries. Timeline of illness: Nausea, vomiting, and diarrhea began while on vacation in [facility] () and seen by a medical clinic there on 10/08 for 2 days of symptoms. Received IVFs; also thinks she received an IV antiparasitic and IV antibiotic, was able to fly home on 10/09 but symptoms worsened (vomiting, stopped having stools). Seen in ER 10/10, diagnosed with SBO, discharged home on oral Zofran and clear l iquid diet. Symptoms worsened, re-presented 10/11 with intractable, feculent vomiting. Admitted and NG tube placed 10/11/[address] Dr. Bradford of General Surgery following. Gastrograffin given 10/12 at 1430; no evidence of any contrast on Xray this morning. Continues to have quite a bit of output from NG (400mL in 3 hours this morning). This morning, Walter has no concerns for the hospitalist team, had one small episode of flatus last night. Exam Narrative: Exam Narrative: GEN: Alert and oriented, answering questions appropriately HEENT: Normal external ears, EOMIs bilaterally, no scleral icterus CV: RRR, No concerning murmurs, rubs, or gallops R: LCTA bilaterally without concerning wheezing, rales, or rhonchi Ext: wwp, no concerning edema Skin: No concerning skin lesions or rashes on exposed skin Neuro: Nonfocal Psych: Appropriate Const: Vital Signs, click to edit/add: Vital Signs - 24 hr 10/12/24 11:59 10/12/24 15:00 10/12/24 23:00 Temperature 98.6 F 99.0 F Pulse Rate [Pulse Oximeter] 84 84 92 Respiratory Rate 16 16 19 Blood Pressure [Le ft Arm] 132/77 134/79 Pulse Oximetry 97 97 Oxygen Delivery Me thod Room Air Room Air 10/13/24 02:41 Temperature 98.3 F Pulse Rate [Pulse Oximeter] 96 Respiratory Rate 18 Blood Pressure [Le ft Arm] 142/83 H Pulse Oximetry 98 Oxygen Delivery Me thod Room Air Labs Labs: Laboratory Results - last 24 hr 10/13/24 06:14 WBC 7.33 RBC 3.85 L Hgb 10.7 L Hct 33.9 MCV 88 MCH 28 MCHC 32 RDW Coeff of Brandon 14.3 Plt Count 434 Neut % (Auto) 75.8 H Lymph % (Auto) 7.8 L Hudson % (Auto) 12.7 H Eos % (Auto) 1.6 Baso % (Auto) 0.3 Neut # (Auto) 5.60 Lymph # (Auto) 0.60 L Hudson # (Auto) 0.90 Eos # (Auto) 0.12 Baso # (Auto) 0.02 Abs Immat Gran (auto) 0.13 Imm/Tot Granulo (auto) 1.8 Sodium 135 Potassium 3.3 L Chloride 104 Carbon Dioxide 18 L Anion Gap 13 BUN 12 Creatinine 0.5 Estimated Creat Clear 116.24 Estimated GFR 114 Glucose 69 Calcium 8.5 C-Reactive Protein 16.2 H
--- NOTE | 2024-10-13 09:45 | PM.GSPN ---
Subjective Subjective Date Seen: 10/13/24 Interval history: Gastrografin administered yesterday.Walter has passed a small amount of gas. No nausea. Pain is mild and unchanged. Exam Narrative: Exam Narrative: General: No acute distress CV: Regular rate HEENT: NG in place. Clear/greenish output recorded. 3300 out since yesterday. Abdomen: Distended. Soft. Const: Vital Signs, click to edit/add: Vital Signs - 24 hr 10/12/24 11:59 10/12/24 15:00 10/12/24 23:00 Temperature 98.6 F 99.0 F Pulse Rate [Pulse Oximeter] 84 84 92 Respiratory Rate 16 16 19 Blood Pressure [Le ft Arm] 132/77 134/79 Pulse Oximetry 97 97 Oxygen Delivery Me thod Room Air Room Air 10/13/24 02:41 Temperature 98.3 F Pulse Rate [Pulse Oximeter] 96 Respiratory Rate 18 Blood Pressure [Le ft Arm] 142/83 H Pulse Oximetry 98 Oxygen Delivery Me thod Room Air Labs/Imaging Labs Labs: White blood cell count is still normal at 7.3. Patient continues to have a left shift. Hemoglobin remains low at 10.7. Potassium is low at 3.3. Bicarb low at 18 CRP remains elevated at 16 today from 13 yesterday. Imaging Imaging: Abdominal x-ray done today shows no evidence of contrast. Persistently dilated loops of small bowel noted. Progress Note:A&P Assessment and plan (1) SBO (small bowel obstruction): Status: Acute (2) Enteritis: Status: Acute (3) Hypokalemia: Status: Acute Plan The patient is a 48-year-old female with a bowel obstruction in the setting of her recent GI illness during travel. Differential includes adhesions, inflammatory bowel disease and terminal ileitis from Infectious enteritis. -unfortunately yesterday the Gastrografin was all sucked out from the NG tube. Recommend administering again today and leaving the NG tube clamped as long as the patient will tolerate. -continue Azithromycin for possible traveler's diarrhea -repeat x-ray in the morning.
[2024-10-13] MEDS: SODIUM CHLORIDE 0.9 % (FLUSH) 10 ML SYRINGE 5 ML IVF (12:23)
[2024-10-13] MEDS: POTAS 106 MEQ IVPB ×3 (12:23→17:11)
[2024-10-13] MEDS: PANTOPRAZOLE SODIUM 40 MG INJ IVP (12:23)
[2024-10-13 13:03] VITALS: BP 130/84; PULSE 92; RESP 20; O2SAT 96
[2024-10-13] MEDS: MORPHINE 4 MG/ML INJ 2 MG IVP (14:33)
[2024-10-13] MEDS: ONDANSETRON 2 MG/ML inj 4 MG IVP ×2 (14:40→21:15)
--- NOTE | 2024-10-13 20:07 | PC.NURSE ---
End of shift [id number] - Pt alert, oriented, cooperative. Up independent in room and ambulating in halls. Tolerating RA and NPO diet. NG tube noted to be patent and draining on intermittent suction during shift. Pt reported one episode of severe abdominal pain that increased with movement. Given medication per MAR with pt reporting improvement. Visitors at bedside during shift, appears to be resting comfortably with call light within reach.
[2024-10-13] MEDS: DIATRIZOATE MEGLUMINE, SODIUM 120 ML SOLUTION 90 ML NG (21:58)
[2024-10-14] MEDS: 0.9 % SODIUM CHLORIDE 1000 ml 1,000 ML 125 ML IV (00:58)
[2024-10-14 01:36] VITALS: BP 153/93; PULSE 80; RESP 19; O2SAT 100
--- NOTE | 2024-10-14 05:37 | PC.NURSE ---
Shift note ([id number]): Patient pleasant, alert and oriented.?Ambulates independently in room. Denied pain. Tolerating sips and chips. Gastrografin and X-ray completed. Good output from NG tube. ?
[2024-10-14 06:43] LABS: Basophils Absolute Auto 0.01 K/uL (0.00-0.30); Basophils Percent Auto 0.1 % (0.0-3.0); Eosinophils Absolute Auto 0.16 K/uL (0.00-0.50); Eosinophils Percent Auto 2.2 % (0.0-7.0); Hematocrit 32.2 % (33.0-51.0); Hemoglobin* 10.3 gm/dL (12.0-16.0); Immature Granulocytes Abs Auto 0.18 K/uL (0.00-0.30); Immature Granulocytes Pct Auto 2.5 %; Lymphocytes Percent Auto 7.5 % (20-44); Mean Corpuscular HGB Conc 32 gm/dL (32-36); Mean Corpuscular Hemoglobin 28 pg (26-34); Mean Corpuscular Volume 88 fL (80-100); Neutrophils Percent Auto 74.7 % (42.0-72.0); Platelet Count* 415 K/uL (140-440); RDW Coefficient of Variation % 14.4 % (11.5-15.5); Red Blood Count 3.68 m/uL (4.00-5.20); White Blood Count* 7.29 K/uL (4.50-11.00)
[2024-10-14 06:45] LABS: Slide Review Reflex No
[2024-10-14 06:53] LABS: Chloride* 111 mmol/L (96-114); Potassium* 3.6 mmol/L (3.6-5.1); Sodium* 139 mmol/L (135-149)
[2024-10-14] MEDS: PANTOPRAZOLE SODIUM 40 MG INJ IVP (06:54)
[2024-10-14 06:56] LABS: Anion Gap 15 mEq/L (7-15); Blood Urea Nitrogen* 9 mg/dL (7-30); Calcium* 8.6 mg/dL (8.4-10.6); Carbon Dioxide* 13 mmol/L (20-32); Creatinine* 0.4 mg/dL (0.5-1.5); Estimated Glomerular Filt Rate 121 ml/min; Glucose* 72 mg/dL (60-115)
[2024-10-14 07:00] VITALS: BP 129/80; PULSE 76; RESP 18; TEMP 36.6; O2SAT 98
--- NOTE | 2024-10-14 07:00 | CRLHL7_ITS ---
For Patients: As a result of the Century Cures Act, medical imaging exams and procedure reports are released immediately into your electronic medical record. You may view this report before your referring provider. If you have questions, please contact your health care provider. Indication: Small-bowel follow-through. Technique: Abdomen 2 view. Comparison: October 13, 2024. Findings/Impression: Bowel: Multiple dilated loops of small bowel with enteric contrast concerning for obstruction. No contrast in the colon. Subdiaphragmatic enteric tube with tip in the stomach. Soft tissues: No sign of free air. No sign of soft tissue mass. No suspicious calcifications. Bones: Unremarkable for age. Dictated by Alfredo Yanes MD @ 10/14/2024 1:46:24 AM (Electronically Signed)
[2024-10-14] MEDS: 5 % DEXTROSE IN LAC RINGER'S 1,000 ML 125 ML IV ×2 (09:18→17:20)
[2024-10-14] MEDS: SODIUM CHLORIDE 0.9 % (FLUSH) 10 ML SYRINGE 5 ML IVF ×2 (09:19→20:33)
[2024-10-14] MEDS: GI COCKTAIL (VISC LIDO/ANTACID) 30 ML PO (10:10)
[2024-10-14 10:54] LABS: Lactate* 0.7 mmol/L (0.5-1.9)
[2024-10-14 11:17] LABS: C Reactive Protein* 18.4 mg/dL (0.5-1.0)
--- NOTE | 2024-10-14 12:18 | P.GSPN_ITS ---
Subjective Subjective Date Seen: 10/14/24 Interval history: Gastrografin was administered late last evening. NG tube was clamped for 3 hours. The patient had significant discomfort and she was placed to suction. She had almost a L out right away. She feels much better today overall. Has continued to have fairly significant NG output. She has not passed any gas. She has not had any morphine since yesterday afternoon. She has had reflux and heartburn but thinks that this is from when the NG tube was clamped. Exam Narrative: Exam Narrative: General: No acute distress HEENT: NG in place. Output is fairly clear, mildly bilious. 5 L are charted since yesterday. Abdomen less distended today. Nontender on my exam today. She has very faint hypoactive bowel sounds on auscultation. Const: Vital Signs, click to edit/add: Vital Signs - 24 hr 10/13/24 13:03 10/14/24 01:36 10/14/24 07:00 Temperature 97.8 F Pulse Rate [Pulse Oximeter] 92 80 76 Respiratory Rate 20 19 18 Blood Pressure [Le ft Arm] 153/93 H Blood Pressure [Ri ght Arm] 130/84 129/80 Pulse Oximetry 96 100 98 Oxygen Delivery Me thod Room Air Room Air Room Air Labs/Imaging Labs Labs: White blood cell count remains normal at 7 though she does still have a left shift. Hemoglobin is stable at 10.3. Carbon dioxide is 13 today from 18 yesterday from 22. She does have rising chloride likely from normal saline Lactate is normal. CRP is up to 18 from 16 from 13. Progress Note:A&P Assessment and plan (1) Abnormal CT scan: Status: Acute (2) SBO (small bowel obstruction): Status: Acute (3) Enteritis: Status: Acute (4) Anemia: Status: Acute Plan The patient is a 48-year-old female who has a small-bowel obstruction in the setting of recent diarrheal illness and travel. Differential includes adhesive obstruction, obstruction from terminal ileitis from either infectious enteritis or inflammatory bowel disease. -overall clinical picture today looks somewhat better, though CRP is up and patient has a metabolic acidosis. Anion gap is normal though it is rising. Suspect mixed acidosis. Likely from normal saline administration and possible ketosis. IV fluids switch to D5 LR today. -patient has been adequately treated for bacterial sources of enteritis. There are parasitic infections that can cause bowel obstruction. Will try an oral dose of ivermectin - though absorption is questionable given the patient's obstruction. Regardless this is unlikely to cause harm. -today is day 3 of NG decompression. I explained to the patient that in the setting of a bowel obstruction we usually wait at least 3 days and depending on the patient's symptoms, up to 5. Since she has not passed any gas at all, if she is not at least partially resolved by tomorrow morning then I would plan on exploration. We will obtain an x-ray in the morning. If the contrast has passed further down and she is clinically stable then we could reconsider, however at this point she has not made progress in resolution of the obstruction (though she does have some bowel sounds on exam today which is new). The patient and her understand the rationale behind this. -I discuss with the hospitalist the need for TPN given that she has not been a ble to take in any p.o. for a week and again likely has some degree of ketosis. I will leave this up to him for now - if no improvement by tomorrow then I would recommend starting.
[2024-10-14] MEDS: ONDANSETRON 2 MG/ML inj 4 MG IVP (13:54)
[2024-10-14 15:00] VITALS: BP 139/81; PULSE 80; RESP 18; O2SAT 100
[2024-10-14] MEDS: MORPHINE 4 MG/ML INJ 2 MG IVP ×2 (16:27→20:31)
--- NOTE | 2024-10-14 17:32 | P.IMPN_ITS ---
Assessment and Plan Assessment and plan (1) SBO (small bowel obstruction): Problem comment: - first episode - no history of abdominal surgeries, reassuring colonoscopy last year, no history of rashes/arthritis, no family history of IBD - NG placed 10/11/24 pm - NPO, IVF, antiemetics and pain management - azithromycin 500 mg IV x 3 doses to cover for potential infectious enteritis given recent travel to . Received ivermectin for possible parasitic infection - Dr. Bradford of General Surgery also following Status: Acute (2) Enteritis: Status: Acute (3) Metabolic acidosis: Problem comment: Likely due to normal saline and ketosis from no significant oral intake for about a week. Switch to D5 LR. Consider TPN Status: Acute (4) Malnutrition: Problem comment: Minimal oral intake for 1 week. Possible TPN to start tomorrow depending on clinical course Status: Acute Plan Continue in hospital for evaluation management of small bowel obstruction. Plan of care is discussed with Dr. Bradford, patient, and other providers. total time spent is 65 minutes in evaluation and management, coordination of care and discussing plan of care. Subjective Date Seen: 10/14/24 Interval history: 48-year-old female admitted to the hospital with abdominal pain, vomiting and di arrhea. She was vacationing in [facility] for 1 week. At the end of that week she developed vomiting and diarrhea. She was sick enough that she went to an emergency room where she was treated with IV fluids, antiemetics and Cipro. She felt well enough to fly home but on arriving home she was very sick and went to the emergency room. Her diarrhea got better. No previous history of abdominal surgery In our emergency department she was found to have evidence for a small bowel obstruction with a transition point at the terminal ileum. The terminal ileum had changes suggesting local inflammation. She is admitted to the hospital for small-bowel obstruction. NG tube was placed. She was given IV fluids and antiemetics and pain medications. She was treated with a Zithromax in for possible bacterial enteritis causing symptoms. She has continued to have abdominal pain and bloating. NG suctioning is producing a fairly large amount of greenish fluid. No obvious bleeding. She is not passing gas or stools per rectum. No fever. Exam Narrative: Exam Narrative: She is alert and appears in no distress. She gives her own history. Respirations are clear to auscultation. Cardiovascular: S1, S2, regular rate and rhythm. Abdomen: Bowel sounds active. Abdomen is mildly distended with mild diffuse tenderness. No mass. Const: Vital Signs, click to edit/add: Vital Signs - 24 hr 10/14/24 01:36 10/14/24 07:00 10/14/24 15:00 Temperature 97.8 F Pulse Rate [Pulse Oximeter] 80 76 80 Respiratory Rate 19 18 18 Blood Pressure [Le ft Arm] 153/93 H Blood Pressure [Ri ght Arm] 129/80 139/81 Pulse Oximetry 100 98 100 Oxygen Delivery Me thod Room Air Room Air Room Air Documenting provider has reviewed patient's vital signs: yes Labs Labs: Laboratory Results - last 24 hr 10/14/24 10/14/24 10/14/24 06:05 10:43 10:52 WBC 7.29 RBC 3.68 L Hgb 10.3 L Hct 32.2 L MCV 88 MCH 28 MCHC 32 RDW Coeff of [place] 14.4 Plt Count 415 Neut % (Auto) 74.7 H Lymph % (Auto) 7.5 L [place] % (Auto) 13.0 H Eos % (Auto) 2.2 Baso % (Auto) 0.1 Neut # (Auto) 5.40 Lymph # (Auto) 0.50 L [place] # (Auto) 0.90 Eos # (Auto) 0.16 Baso # (Auto) 0.01 Abs Immat Gran (auto) 0.18 Imm/Tot Granulo (auto) 2.5 Sodium 139 Potassium 3.6 Chloride 111 Carbon Dioxide 13 L Anion Gap 15 BUN 9 Creatinine 0.4 L Estimated Creat Clear 145.30 Estimated GFR 121 Glucose 72 Lactate 0.7 Calcium 8.6 Magnesium 2.0 C-Reactive Protein 18.4 H Lab Acknowledgement Test Added Imaging Abdominal x-ray SBFT: Radiologist's impression: Indication: Small-bowel follow-through. Technique: Abdomen 2 view. Comparison: October 13, 2024. Findings/Impression: Bowel: Multiple dilated loops of small bowel with enteric contrast concerning for obstruction. No contrast in the colon. Subdiaphragmatic enteric tube with tip in the stomach. Soft tissues: No sign of free air. No sign of soft tissue mass. No suspicious calcifications. Bones: Unremarkable for age.
--- NOTE | 2024-10-14 19:42 | PC.NURSE ---
End of shift 0422-2040 - Pt alert, oriented, cooperative. Appeared fatigued during shift related to prolonged NPO status. Pt reports feeling weak, MD made aware of nutrition status. Pt up independently in room and ambulating in halls. NG noted to be patent and draining. Tolerating NG on intermittent suction. Pt reported feeling reflux and burning in throat. MD made aware and NG tubing/suction examined. NG was thought to be blocked/decreased suction observed, attempted to flush tubing with air and small amount of liquid with no improvement. RN had pt reposition and patentcy returned to NG tubing. Medication given per MD PRN order for increased pt comfort. Pt reported pain in abdomen, given medication per MAR with improved comfort. Family at bedside during shift. Pt appears to be resting comfortably at end of shift with call light within reach.
[2024-10-14 20:47] VITALS: BP 153/93; PULSE 86; RESP 18; TEMP 37.1; O2SAT 98
[2024-10-15] VITALS (7 sets, daily range): BP systolic 116–157; BP diastolic 76–85; PULSE 80–99; RESP 16–18; TEMP 36.7–37.4; O2SAT 95–98
[2024-10-15] MEDS: 5 % DEXTROSE IN LAC RINGER'S 1,000 ML 125 ML IV ×3 (01:06→17:31)
[2024-10-15] MEDS: MORPHINE 4 MG/ML INJ 2 MG IVP ×3 (01:06→20:41)
[2024-10-15] MEDS: SODIUM CHLORIDE 0.9 % (FLUSH) 10 ML SYRINGE 5 ML IVF ×2 (01:08→20:41)
[2024-10-15 06:59] LABS: Basophils Absolute Auto 0.02 K/uL (0.00-0.30); Basophils Percent Auto 0.3 % (0.0-3.0); Eosinophils Absolute Auto 0.12 K/uL (0.00-0.50); Hematocrit 33.3 % (33.0-51.0); Hemoglobin* 10.9 gm/dL (12.0-16.0); Immature Granulocytes Abs Auto 0.19 K/uL (0.00-0.30); Immature Granulocytes Pct Auto 3.1 %; Lymphocytes Percent Auto 9.3 % (20-44); Mean Corpuscular HGB Conc 33 gm/dL (32-36); Mean Corpuscular Hemoglobin 28 pg (26-34); Mean Corpuscular Volume 85 fL (80-100); Monocytes Percent Auto 13.3 % (0.0-11.0); Neutrophils Absolute Auto 4.39 K/uL (1.7-7.0); Platelet Count* 444 K/uL (140-440); RDW Coefficient of Variation % 14.3 % (11.5-15.5)
--- NOTE | 2024-10-15 07:00 | CRLHL7_ITS ---
For Patients: As a result of the Century Cures Act, medical imaging exams and procedure reports are released immediately into your electronic medical record. You may view this report before your referring provider. If you have questions, please contact your health care provider. INDICATION: Follow-up small bowel obstruction. TECHNIQUE: Abdomen one view. COMPARISON: : 10/14/2024. IMPRESSION: Enteric tube terminates in the stomach. Multiple dilated small bowel loops concerning for obstruction are similar in appearance. Contrast material is present in the colon. No other significant interval change. Dictated by Kiran Porras MD @ 10/15/2024 8:07:57 AM (Electronically Signed)
[2024-10-15 07:10] LABS: Chloride* 106 mmol/L (96-114); Sodium* 138 mmol/L (135-149)
[2024-10-15 07:11] LABS: Potassium* 3.2 mmol/L (3.6-5.1)
[2024-10-15 07:13] LABS: Blood Urea Nitrogen* 11 mg/dL (7-30); Creatinine* 0.4 mg/dL (0.5-1.5); Estimated Glomerular Filt Rate 121 ml/min
[2024-10-15 07:14] LABS: Anion Gap 8 mEq/L (7-15); Calcium* 8.6 mg/dL (8.4-10.6); Carbon Dioxide* 24 mmol/L (20-32); Glucose* 151 mg/dL (60-115)
[2024-10-15 07:15] LABS: Slide Review Reflex No
[2024-10-15] MEDS: PANTOPRAZOLE SODIUM 40 MG INJ IVP (08:58)
[2024-10-15] MEDS: POTASSIUM CHLORIDE 10 MEQ, LIDOCAINE 1 % 1 ML in 0.9 % SODIUM CHLORIDE 100 ml 100 ML 106 MEQ IVPB ×2 (08:58→10:04)
--- NOTE | 2024-10-15 09:38 | PM.GSPN ---
Subjective Subjective Date Seen: 10/15/24 Interval history: Walter feels better today than yesterday. She states that she did have some discomfort last evening and did receive morphine overnight. She passed a small amount of gas this morning. Exam Narrative: Exam Narrative: General: No acute distress HEENT: NG in place. Patient had approximately 3000 out in the last 24 hours. Output is non-bilious Abdomen: Distended but soft. Nontender. Very faint bowel sounds noted. Const: Vital Signs, click to edit/add: Vital Signs - 24 hr 10/14/24 15:00 10/14/24 20:47 10/15/24 01:24 Temperature 98.8 F Pulse Rate [Pulse Oximeter] 80 86 80 Respiratory Rate 18 18 18 Blood Pressure [Le ft Arm] 153/93 H 157/80 H Blood Pressure [Ri ght Arm] 139/81 Pulse Oximetry 100 98 98 Oxygen Delivery Me thod Room Air Room Air Room Air 10/15/24 07:35 10/15/24 07:45 Temperature 98.1 F Pulse Rate [Pulse Oximeter] 92 92 Respiratory Rate 18 18 Blood Pressure [Le ft Arm] 124/80 Blood Pressure [Ri ght Arm] Pulse Oximetry 97 Oxygen Delivery Me thod Room Air Labs/Imaging Labs Labs: White blood cell count 6.1, no left shift noted today. Hemoglobin 10.9. Potassium 3.2. Metabolic acidosis resolved with CO2 of 24. Imaging Imaging: X-ray done today shows contrast within the colon. Patient still has fairly dilated loops of small bowel noted. Progress Note:A&P Assessment and plan (1) Malnutrition: Status: Acute (2) SBO (small bowel obstruction): Status: Acute (3) Hypokalemia: Status: Acute (4) Anemia: Status: Acute Plan The patient is a 48-year-old female with small-bowel obstruction in the setting of recent diarrheal illness and travel. Differential includes adhesive obstruction, obstruction from terminal ileitis from your infectious enteritis or inflammatory bowel disease. -today she appears slightly better overall. White count remains normal. Metabolic acidosis resolved with administration of glucose in IV fluids. -she was treated for bacterial enteritis. She also received ivermectin yesterday, however absorption is unclear as she did not tolerate NG clamping for significant amount of time. -since she did have passage of contrast since she is clinically stable, I discussed with the patient that I recommended continued conservative management. We will reassess daily for continued improvement. I explained to her that passage of contrast into the colon is an excellent sign, however with a persistently dilated small bowel and concerned that she could still have a partial obstruction. We will plan on continued NG decompression today. If she continues to do well we can try a clamping trial tomorrow. She understands that if she has a partial obstruction she may still need surgery if she fails to improve. -since she has now been essentially a week without p.o. intake, we discussed starting PPN. -potassium replacement per hospitalist
[2024-10-15 11:19] LABS: C.Difficile Negative (Negative); CDIFFEPI 027 PRESUMPTIVE NEGATIVE (Negative)
--- NOTE | 2024-10-15 13:25 | P.IMPN_ITS ---
Assessment and Plan Assessment and plan (1) SBO (small bowel obstruction): Problem comment: - first episode - no history of abdominal surgeries, reassuring colonoscopy last year, no history of rashes/arthritis, no family history of IBD - NG placed 10/11/24 pm - NPO, IVF, antiemetics and pain management - azithromycin 500 mg IV x 3 doses to cover for potential infectious enteritis given recent travel to . Received ivermectin for possible parasitic infection on October 14 - Dr. Bradford of General Surgery also following Status: Acute (2) Malnutrition: Problem comment: Minimal oral intake for 1 week. Clinically improving so will hold off on parental nutrition for 1 more day Status: Acute (3) Hypokalemia: Problem comment: - replace and follow, normal Magnesium Status: Acute (4) Anemia: Problem comment: - noted since 2022 - normocytic, normal TIBC (ferritin not checked) in July 2024: unlikely iron deficiency - needs further outpatient workup when not acutely ill Status: Acute (5) Metabolic acidosis: Problem comment: Likely due to normal saline and ketosis from no significant oral intake for about a week. Switch to D5 LR. Acidosis resolved with switching IV fluids Status: Acute Plan Continue in hospital for ongoing management of small bowel obstruction with NG suctioning, IV fluids, pain management. Total Time Spent Total Time Spent: Total time spent today is 40 minutes in coordination of care and discussing with patient, other providers diagnosis and management of small bowel obstruction, malnutrition and plan of care. Subjective Date Seen: 10/15/24 Interval history: 48-year-old female admitted to the hospital with abdominal pain, vomiting and diarrhea. She was vacationing in [facility] for 1 week. At the end of that week she developed vomiting and diarrhea. She was sick enough that she went to an emergency room where she was treated with IV fluids, antiemetics and Cipro. She felt well enough to fly home but on arriving home she was very sick and went to the emergency room. Her diarrhea got better. No previous history of abdominal surgery In our emergency department she was found to have evidence for a small bowel obstruction with a transition point at the terminal ileum. The terminal ileum had changes suggesting local inflammation. She is admitted to the hospital for small-bowel obstruction. NG tube was placed. She was given IV fluids and antiemetics and pain medications. She was treated with a Zithromax in for possible bacterial enteritis causing symptoms. She has continued to have abdominal pain and bloating. NG suctioning is producing a fairly large amount of greenish fluid. No obvious bleeding. She is not passing gas or stools per rectum. No fever. 10/15/2024: Patient reports feeling better today. She passed some gas this morning. Following that she had a stool. Less pain. X-ray shows that the Gastrografin has gone into the colon but small-bowel is still distended. Exam Narrative: Exam Narrative: She is alert and appears in no distress. Breathing is unlabored. Abdomen: Bowel sounds are diminished but present. Abdomen is soft with no significant tenderness. Much improved from yesterday. Extremities without edema. Const: Vital Signs, click to edit/add: Vital Signs - 24 hr 10/14/24 15:00 10/14/24 20:47 10/15/24 01:24 Temperature 98.8 F Pulse Rate [Pulse Oximeter] 80 86 80 Respiratory Rate 18 18 18 Blood Pressure [Le ft Arm] 153/93 H 157/80 H Blood Pressure [Ri ght Arm] 139/81 Pulse Oximetry 100 98 98 Oxygen Delivery Me thod Room Air Room Air Room Air 10/15/24 07:35 10/15/24 07:45 10/15/24 11:15 Temperature 98.1 F 98.0 F Pulse Rate [Pulse Oximeter] 92 92 99 Respiratory Rate 18 18 18 Blood Pressure [Le ft Arm] 124/80 140/85 H Blood Pressure [Ri ght Arm] Pulse Oximetry 97 95 Oxygen Delivery Me thod Room Air Room Air Documenting provider has reviewed patient's vital signs: yes Labs Labs: Laboratory Results - last 24 hr 10/15/24 10/15/24 05:59 10:17 WBC 6.10 RBC 3.90 L Hgb 10.9 L Hct 33.3 MCV 85 MCH 28 MCHC 33 RDW Coeff of [place] 14.3 Plt Count 444 H Neut % (Auto) 72.0 Lymph % (Auto) 9.3 L [place] % (Auto) 13.3 H Eos % (Auto) 2.0 Baso % (Auto) 0.3 Neut # (Auto) 4.39 Lymph # (Auto) 0.60 L [place] # (Auto) 0.80 Eos # (Auto) 0.12 Baso # (Auto) 0.02 Abs Immat Gran (auto) 0.19 Imm/Tot Granulo (auto) 3.1 Sodium 138 Potassium 3.2 L Chloride 106 Carbon Dioxide 24 Anion Gap 8 BUN 11 Creatinine 0.4 L Estimated Creat Clear 145.30 Estimated GFR 121 Glucose 151 H Calcium 8.6 Stl C. diff Tox B Gene Negative Stl C. diff [id number] PRESUMPTIVE NEGATIVE
--- NOTE | 2024-10-15 16:58 | PC.NURSE ---
End of shift. pt has been very pleasant. no pain this am, she described it as discomfort. later she was crampy gassy, tried repo, heat. she did need to get IV morphine later. Pt alert, oriented, x4 she has been up independently in room and walking in the halls. NG @ 57 nare. it is patent and draining. to LIS. it has been working with no problems.she is passing gas and she had a small BM./ BS are hypoactive. she is taking in ice chips and sips of h20. with no nausea or discomfort. call light within reach. IV has been patent. she got IV potassium.
[2024-10-15] MEDS: SIMETHICONE 80 MG TAB.CHEW 160 MG PO (18:12)
[2024-10-15] MEDS: ACETAMINOPHEN 325 MG TABLET 1000 MG PO (18:13)
[2024-10-15] MEDS: ONDANSETRON 2 MG/ML inj 4 MG IVP (18:13)
--- NOTE | 2024-10-15 19:25 | PC.NURSE ---
End of Shift: Patient pleasant and cooperative, A&O. VSS, afebrile. Patient reported pain in her abdomen this shift, managed with PRN medication, see EMILY. TONI at 57 in left nare to LIS. Indpendent in room.
[2024-10-16] MEDS: SIMETHICONE 80 MG TAB.CHEW 160 MG PO ×2 (00:17→06:12)
[2024-10-16] MEDS: ACETAMINOPHEN 325 MG TABLET 1000 MG PO ×2 (00:17→06:03)
[2024-10-16] MEDS: ONDANSETRON 2 MG/ML inj 4 MG IVP ×4 (00:17→18:14)
[2024-10-16] MEDS: SODIUM CHLORIDE 0.9 % (FLUSH) 10 ML SYRINGE 5 ML IVF ×3 (00:18→22:13)
[2024-10-16] MEDS: 5 % DEXTROSE IN LAC RINGER'S 1,000 ML 125 ML IV ×3 (01:37→19:22)
[2024-10-16] MEDS: MORPHINE 4 MG/ML INJ 2 MG IVP ×4 (04:45→22:12)
--- NOTE | 2024-10-16 06:21 | PC.NURSE ---
[id number] Pt had 750cc NG output for entire shift, reported large diarrhea with chunks this morning. pain controlled with prn pain medication. walked halls x1 last evening, tolerating activity.
[2024-10-16 06:23] LABS: Basophils Absolute Auto 0.01 K/uL (0.00-0.30); Basophils Percent Auto 0.1 % (0.0-3.0); Eosinophils Absolute Auto 0.11 K/uL (0.00-0.50); Eosinophils Percent Auto 1.5 % (0.0-7.0); Hematocrit 31.6 % (33.0-51.0); Hemoglobin* 10.2 gm/dL (12.0-16.0); Immature Granulocytes Abs Auto 0.08 K/uL (0.00-0.30); Immature Granulocytes Pct Auto 1.1 %; Lymphocytes Percent Auto 7.9 % (20-44); Mean Corpuscular HGB Conc 32 gm/dL (32-36); Mean Corpuscular Hemoglobin 28 pg (26-34); Mean Corpuscular Volume 86 fL (80-100); Monocytes Percent Auto 11.5 % (0.0-11.0); Neutrophils Percent Auto 77.9 % (42.0-72.0); Platelet Count* 432 K/uL (140-440); RDW Coefficient of Variation % 14.5 % (11.5-15.5); Red Blood Count 3.69 m/uL (4.00-5.20); White Blood Count* 7.48 K/uL (4.50-11.00)
[2024-10-16 06:32] LABS: Slide Review Reflex No
[2024-10-16 06:35] LABS: Chloride* 104 mmol/L (96-114); Sodium* 139 mmol/L (135-149)
[2024-10-16 06:38] LABS: Anion Gap 5 mEq/L (7-15); Blood Urea Nitrogen* 15 mg/dL (7-30); Calcium* 8.5 mg/dL (8.4-10.6); Carbon Dioxide* 30 mmol/L (20-32); Creatinine* 0.4 mg/dL (0.5-1.5); Estimated Glomerular Filt Rate 121 ml/min; Glucose* 123 mg/dL (60-115)
[2024-10-16 06:45] LABS: Potassium* 2.9 mmol/L (3.6-5.1)
[2024-10-16 07:00] VITALS: PULSE 88; RESP 16
[2024-10-16 07:52] VITALS: BP 126/83; PULSE 88; RESP 16; TEMP 36.6; O2SAT 96
--- NOTE | 2024-10-16 07:58 | PM.GSPN ---
Subjective Subjective Date Seen: 10/16/24 Interval history: Yesterday and this morning Walter has had multiple large bowel movements. Her main issue is a severe headache. She states that normally she takes ibuprofen, however she was told that she could not have it. Overall she feels better. Exam Narrative: Exam Narrative: General: No acute distress Abdomen: Distended. This today appears more distended than it did yesterday. NG output decreased in the last 24 hours however - only 1900 out Const: Vital Signs, click to edit/add: Vital Signs - 24 hr 10/15/24 11:15 10/15/24 15:00 10/15/24 15:00 Temperature 98.0 F 98.7 F Pulse Rate [Pulse Oximeter] 99 91 91 Respiratory Rate 18 18 18 Blood Pressure [Le ft Arm] 140/85 H Blood Pressure [Ri ght Arm] 129/84 Pulse Oximetry 95 96 Oxygen Delivery Me thod Room Air 10/15/24 19:00 10/15/24 23:00 10/16/24 07:52 Temperature 99.3 F 97.8 F Pulse Rate [Pulse Oximeter] 90 93 88 Respiratory Rate 16 16 16 Blood Pressure [Le ft Arm] Blood Pressure [Ri ght Arm] 123/82 116/76 126/83 Pulse Oximetry 97 95 96 Oxygen Delivery Me thod Room Air Room Air Room Air Labs/Imaging Labs Labs: White blood cell count remains normal. Progress Note:A&P Assessment and plan (1) Malnutrition: Status: Acute (2) Abnormal CT scan: Status: Acute (3) Hypokalemia: Status: Acute (4) SBO (small bowel obstruction): Status: Acute (5) Anemia: Status: Acute (6) Enteritis: Status: Acute Plan The patient is a 48-year-old female who is now 5 days status post NG decompression for small bowel obstruction. Fortunately she did pass Gastrografin radiographically and has had return of bowel function. Unfortunately she remains distended a which concerns me for ongoing partial obstruction. -today we will try clamping her NG tube. If the obstruction has resolved she should tolerate this. If she has ongoing partial obstruction, and she cannot tolerate NG clamping, since it has now been 5 days then I would likely recommend exploration, however would try to give her 24 hours. -hypokalemia is likely from diarrhea and gastric drainage. Aggressive replacement. Hopefully clamping her NG tube will decrease rate of loss. -Toradol for headache.
[2024-10-16] MEDS: KETOROLAC 15 MG/ML inj IVP ×2 (08:09→19:22)
[2024-10-16] MEDS: POTASSIUM CHLORIDE 10 MEQ, LIDOCAINE 1 % 1 ML in 0.9 % SODIUM CHLORIDE 100 ml 100 ML 106 MEQ IVPB ×4 (08:41→11:36)
[2024-10-16 09:50] LABS: Magnesium* 1.6 mg/dL (1.5-2.6); Phosphorus* 3.6 mg/dL (2.5-4.5)
[2024-10-16] MEDS: PANTOPRAZOLE SODIUM 40 MG INJ IVP (09:51)
[2024-10-16 10:13] VITALS: BMI 22.8
[2024-10-16] MEDS: POTASSIUM BICARB 25 MEQ EFFERVESCENT TAB PO (14:13)
--- NOTE | 2024-10-16 14:21 | PM.IMPN1 ---
Assessment and Plan Assessment and plan (1) Malnutrition: Problem comment: Minimal oral intake for 1 week. Clinically improving so will hold off on parental nutrition. Initiate clear liquids today Status: Acute (2) Abnormal CT scan: Problem comment: - hypodensity at uterine fundus on CT scan 10/10 - patient aware, will need outpatient f/u with Gynecology (still having menses) Status: Acute (3) Hypokalemia: Problem comment: - replace and follow, normal Magnesium Status: Acute (4) SBO (small bowel obstruction): Problem comment: - first episode - no history of abdominal surgeries, reassuring colonoscopy last year, no history of rashes/arthritis, no family history of IBD - NG placed 10/11/24 pm - NPO, IVF, antiemetics and pain management - azithromycin 500 mg IV x 3 doses to cover for potential infectious enteritis given recent travel to . Received ivermectin for possible parasitic infection on October 14 - Dr. Bradford of General Surgery also following Status: Acute (5) Anemia: Problem comment: - noted since 2022 - normocytic, normal TIBC (ferritin not checked) in July 2024: unlikely iron deficiency - needs further outpatient workup when not acutely ill Status: Acute (6) Enteritis: Problem comment: Initial illness appeared to be an acute gastroenteritis obtained well traveling to [facility]. Symptoms appear to have resolved around the time she developed obvious obstructive symptoms Status: Acute Plan Continue in hospital for ongoing monitoring and management. Will did give her clear liquids today and continue to clamp the NG. Continue to ambulate. Address fluid and electrolyte problems. Total Time Spent Total Time Spent: Total time spent today is 45 minutes in coordination of care and discussing with patient and other providers ongoing management bowel obstruction, NG tube, fluid and electrolytes Subjective Date Seen: 10/16/24 Interval history: 48-year-old female admitted to the hospital with abdominal pain, vomiting and diarrhea. She was vacationing in [facility] for 1 week. At the end of that week she developed vomiting and diarrhea. She was sick enough that she went to an emergency room where she was treated with IV fluids, antiemetics and Cipro. She felt well enough to fly home but on arriving home she was very sick and went to the emergency room. Her diarrhea got better. No previous history of abdominal surgery In our emergency department she was found to have evidence for a small bowel obstruction with a transition point at the terminal ileum. The terminal ileum had changes suggesting local inflammation. She is admitted to the hospital for small-bowel obstruction. NG tube was placed. She was given IV fluids and antiemetics and pain medications. She was treated with a Zithromax in for possible bacterial enteritis causing symptoms. She has continued to have abdominal pain and bloating. NG suctioning is producing a fairly large amount of greenish fluid. No obvious bleeding. She is not passing gas or stools per rectum. No fever. 10/15/2024: Patient reports feeling better today. She passed some gas this morning. Following that she had a stool. Less pain. X-ray shows that the Gastrografin has gone into the colon but small-bowel is still distended. 10/16/2024: She reports feeling better. Continue to have small liquid to soft stools. NG was clamped at around 6:30 a.m. today and she reports no significant abdominal pain or nausea 6 hours later. Patient seen and discussed with Dr. Bradford. Exam Narrative: Exam Narrative: She is alert and appears in no distress. Mood and affect are bright. Breathing is unlabored. Abdomen with diminished breath sounds but present. Abdomen is mildly protuberant and soft without tenderness. Extremities without edema. Const: Vital Signs, click to edit/add: Vital Signs - 24 hr 10/15/24 15:00 10/15/24 15:00 10/15/24 19:00 Temperature 98.7 F Pulse Rate [Pulse Oximeter] 91 91 90 Respiratory Rate 18 18 16 Blood Pressure [Ri t Arm] 129/84 123/82 Pulse Oximetry 96 97 Oxygen Delivery Me thod Room Air 10/15/24 23:00 10/16/24 07:00 10/16/24 07:52 Temperature 99.3 F 97.8 F Pulse Rate [Pulse Oximeter] 93 88 88 Respiratory Rate 16 16 16 Blood Pressure [Ri t Arm] 116/76 126/83 Pulse Oximetry 95 96 Oxygen Delivery Me thod Room Air Room Air Documenting provider has reviewed patient's vital signs: yes Labs Labs: Laboratory Results - last 24 hr 10/16/24 10/16/24 05:50 09:38 WBC 7.48 RBC 3.69 L Hgb 10.2 L Hct 31.6 L MCV 86 MCH 28 MCHC 32 RDW Coeff of [place] 14.5 Plt Count 432 Neut % (Auto) 77.9 H Lymph % (Auto) 7.9 L [place] % (Auto) 11.5 H Eos % (Auto) 1.5 Baso % (Auto) 0.1 Neut # (Auto) 5.80 Lymph # (Auto) 0.60 L [place] # (Auto) 0.90 Eos # (Auto) 0.11 Baso # (Auto) 0.01 Abs Immat Gran (auto) 0.08 Imm/Tot Granulo (auto) 1.1 Sodium 139 Potassium 2.9 L* Chloride 104 Carbon Dioxide 30 Anion Gap 5 L BUN 15 Creatinine 0.4 L Estimated Creat Clear 145.30 Estimated GFR 121 Glucose 123 H Calcium 8.5 Phosphorus 3.6 Magnesium 1.6 Lab Acknowledgement Test Added
[2024-10-16 15:00] VITALS: BP 132/82; PULSE 92; RESP 20; TEMP 36.9; O2SAT 96
--- NOTE | 2024-10-16 17:02 | PC.NURSE ---
1510: Pt complain of 9/10 pain with Nausea. REquests Zofran and Morphine. Zofran & Morphine per SEP. Connented NG to suction at continous for 5 minutes, 300 cc in canister. Pt stating some mild relief. Suction changed to LIS. Informed Dr. Saavedra, who referred me to update Dr. Bradford. Updated Dr. Bradford on phone, change to NPO and plan for surgery Wednesday. Updated Primary RN, Nimo, who stated she would update pt.
--- NOTE | 2024-10-16 19:08 | PC.NURSE ---
End of shift-- Pt pleasant, cooperative, alert and oriented. VSS and pt is afebrile. SPO2 maintained >94% on RA. This morning patient denied any pain, but abdomen was distended. NG was clamped and pt ate a Jello through the course of the day without difficulty. However this afternoon, pt attempted to drink Potassium supplement and began to c/o pain which she rated as high as 9 out of 10. Per report from charge nurse, was notified pt was given Morphine and NG was reconnected to suction. Pt immediately had 300ml out via NG and within an hour denied pain. NG has been patent and draining clear, yellow liquid to LIS since. Pain appears well managed with PRN Morphine and Toradol. Abdomen is distended and firm, mildly less distension this afternoon. BS absent in upper quadrants this morning and + x4 this evening. Pt has had several small loose, continent BMs today. LS CTA. She ambulated the hallways and showered independently today and tolerated it well. is at bedside this evening and expressed feeling anxious and frustrated. He stated that he had several questions for the surgeon regarding patient's care. Allowed pt's to vent and attempted to provide answers and reassurance. was notified.
[2024-10-16 20:00] VITALS: BP 125/80; PULSE 91; RESP 16; TEMP 36.9; O2SAT 96
[2024-10-16 23:00] VITALS: PULSE 91; RESP 16
[2024-10-17] VITALS (23 sets, daily range): BP systolic 120–147; BP diastolic 75–96; PULSE 71–96; RESP 12–18; TEMP 36.3–37; O2SAT 95–98
[2024-10-17] MEDS: KETOROLAC 15 MG/ML inj IVP ×3 (01:07→15:29)
[2024-10-17] MEDS: 5 % DEXTROSE IN LAC RINGER'S 1,000 ML 125 ML IV ×3 (02:50→22:53)
[2024-10-17 03:16] LABS: Ur HCG Qualitative* Negative (Negative)
[2024-10-17] MEDS: ONDANSETRON 2 MG/ML inj 4 MG IVP (04:45)
--- NOTE | 2024-10-17 05:07 | PC.NURSE ---
Pt reporting discomfort to R ear at this time. Detail Supervisor inspected R ear with pen light and noted no discharge/exudate or redness in ear. Aqua K pad encouraged to R ear to help decrease discomfort. Pt declining PRN medication for pain at this time.
--- NOTE | 2024-10-17 05:07 | PC.NURSE ---
End of shift report: Pt VS WNL. NG in place and patent in L nare at 57 with low intermittent suction. Green/morrow drainage noted in canister. Two diarrhea BMs this shift. Been NPO since 0000. Tolerating ice chips. Abdomen remains distended with hypoactive bowel sounds throughout. Reports not passing gas. Ind in room. Rates pain from a 1-6, pain meds offered and given with relief. Pt reported nausea, zofran offered and given. Ind in room. 5% dextrose in LR running at 125 mls/hr in R wrist IV. Call light within reach.
--- NOTE | 2024-10-17 05:37 | PC.NURSE ---
Pt refused Lovenox despite education provided stating, No, I'm up walking.
[2024-10-17] MEDS: MORPHINE 4 MG/ML INJ 2 MG IVP (05:47)
[2024-10-17] MEDS: SODIUM CHLORIDE 0.9 % (FLUSH) 10 ML SYRINGE 5 ML IVF ×4 (05:48→20:48)
[2024-10-17 06:37] LABS: Basophils Absolute Auto 0.01 K/uL (0.00-0.30); Basophils Percent Auto 0.1 % (0.0-3.0); Eosinophils Percent Auto 1.1 % (0.0-7.0); Hematocrit 30.2 % (33.0-51.0); Hemoglobin* 9.6 gm/dL (12.0-16.0); Immature Granulocytes Abs Auto 0.04 K/uL (0.00-0.30); Immature Granulocytes Pct Auto 0.4 %; Lymphocytes Percent Auto 5.5 % (20-44); Mean Corpuscular HGB Conc 32 gm/dL (32-36); Mean Corpuscular Hemoglobin 28 pg (26-34); Mean Corpuscular Volume 87 fL (80-100); Monocytes Percent Auto 9.1 % (0.0-11.0); Neutrophils Percent Auto 83.8 % (42.0-72.0); Platelet Count* 372 K/uL (140-440); RDW Coefficient of Variation % 14.4 % (11.5-15.5); Red Blood Count 3.48 m/uL (4.00-5.20); White Blood Count* 9.38 K/uL (4.50-11.00)
[2024-10-17 06:38] LABS: Slide Review Reflex No
[2024-10-17 06:57] LABS: Chloride* 104 mmol/L (96-114); Potassium* 3.1 mmol/L (3.6-5.1); Sodium* 138 mmol/L (135-149)
[2024-10-17 07:00] LABS: Anion Gap 8 mEq/L (7-15); Blood Urea Nitrogen* 22 mg/dL (7-30); Calcium* 8.3 mg/dL (8.4-10.6); Carbon Dioxide* 26 mmol/L (20-32); Creatinine* 0.4 mg/dL (0.5-1.5); Estimated Glomerular Filt Rate 121 ml/min; Glucose* 120 mg/dL (60-115); Phosphorus* 3.5 mg/dL (2.5-4.5)
[2024-10-17 07:01] LABS: Magnesium* 1.4 mg/dL (1.5-2.6)
--- NOTE | 2024-10-17 08:37 | PM.GSPN ---
Subjective Subjective Date Seen: 10/17/24 Interval history: Walter tolerated clamping yesterday for a few hours. She tried taking an oral potassium and had significant pain. She was placed back to suction and had a large amount of NG output with resultant improvement in symptoms. Overnight she did get some morphine for pain as well. She has been having liquidy bowel movements which is an improvement however she is more uncomfortable and distended. Exam Narrative: Exam Narrative: General: No acute distress CV: Regular rate HEENT: NG in place. Slightly greenish output. One thousand five hundred out yesterday. Abdomen: Distended and firm. No guarding or rebound. Const: Vital Signs, click to edit/add: Vital Signs - 24 hr 10/16/24 15:00 10/16/24 15:00 10/16/24 20:00 Temperature 98.4 F 98.4 F Pulse Rate [Pulse Oximeter] 92 92 91 Respiratory Rate 20 20 16 Blood Pressure [Ri ght Arm] 132/82 125/80 Pulse Oximetry 96 96 Oxygen Delivery Me thod Room Air Room Air 10/16/24 23:00 10/17/24 07:00 10/17/24 07:00 Temperature 98.4 F Pulse Rate [Pulse Oximeter] 91 96 86 Respiratory Rate 16 16 16 Blood Pressure [Ri ght Arm] 128/85 Pulse Oximetry 96 Oxygen Delivery Me thod Room Air Labs/Imaging Labs Labs: White blood cell count is 9.3 from 7.4. She does have a left shift. Hemoglobin 9.6 Electrolytes: Potassium 3.1 from 2.9 despite replacement. Magnesium 1.4. Progress Note:A&P Assessment and plan (1) Malnutrition: Status: Acute (2) Abnormal CT scan: Status: Acute (3) Hypokalemia: Status: Acute (4) SBO (small bowel obstruction): Status: Acute (5) Anemia: Status: Acute Plan The patient is a 48-year-old female with small-bowel obstruction which has partially resolved she has had passage of liquidy stool after Gastrografin challenge, however she is more distended today and has not tolerated clamping trials for the last 3 days despite return of bowel function. I discussed with the patient and her that I am concerned she has a partial obstruction therefore some liquid is getting through, however she has significant distention of her small bowel that is not resolving because she still is obstructed. Because it is now 6 days with NG decompression and she is actually more distended, we discussed exploration. We discussed risks and benefits as well as recovery. We also discussed obtaining a CT scan prior to OR, though this will likely not add any additional information as again she appears to be clinically obstructed. We discussed that depending on finding she may require bowel resection. We discussed risks of this as well as timeline for resumption of p.o. intake. I also discussed with the hospitalist starting enteral nutrition. There is some discrepancy about needing a PICC line for peripheral nutrition. This would not be done prior to surgery this morning anyway, therefore we will reassess after surgery and determine the need for enteral nutrition at that point. The patient was agreeable to proceed and we will plan on surgery today.
[2024-10-17 09:15] LABS: C Reactive Protein* 15.8 mg/dL (0.5-1.0)
[2024-10-17] MEDS: PANTOPRAZOLE SODIUM 40 MG INJ IVP (09:19)
[2024-10-17] MEDS: POTAS 106 MEQ IVPB ×4 (09:37→17:45)
[2024-10-17] MEDS: LACTATED RINGERS 1000 ML 1,000 ML 125 ML IV ×2 (11:12→13:45)
[2024-10-17] MEDS: ERTAPENEM 1 GM inj IVPB (11:30)
--- NOTE | 2024-10-17 11:32 | P.ANES_ITS ---
Anesthesia Charges Start Date/Time Anesthesia Start Date: 10/17/24 Anesthesia Start Time: 11:12 Stop Date/Time Anesthesia Stop Date: 10/17/24 Anesthesia Stop Time: 14:18 Summary Emergency: MDA Coding CPT Codes CPT Codes: ANESTH SURG LOWER ABDOMEN - 44162 ([id number]) P1 - NORMAL HEALTHY PATIENT, QX - HOSE MENDER SVC W/ MED DIRECTION, QK - REGIONAL VICE PRESIDENT SURGICAL SALES 2-4 CNCRNT ANES PROC Additional Codes: Summary - Emergency: LIZZY ([id number])
--- NOTE | 2024-10-17 11:32 | W.PM.NB ---
Nerve Block Nerve Block Time Seen by Provider: 11:23 Date Seen: 10/17/24 Type of block requested by surgeon for post-operative analgesia: TAP Side: bilateral Time out performed: Yes Verification of patient name: Yes Verification of date of : Yes Site marking: site marked Name of person performing procedure: Stuart Continuous monitoring Was continuous monitoring of O2 sat, B/P, cut off operator scorer, recorded every 15 minutes?: Yes Procedure Checklist: sterile prep, needles and gloves Ultrasound guided. Images saved: Yes Medications given in 5ml increments after negative aspiration: Marcaine %: 0.25 mL: 30 Needle gauge: 20 and Exparel mL: 10 Patient tolerated procedure well: Yes Additional comments: Needle noted between internal oblique and transversus abdominus. Local spread visualized Block Charges Block Charge (with Pro Fee): TAP Bilateral Use of Ultrasound Machine for Block: Yes- US Guidance/pain block
--- NOTE | 2024-10-17 11:32 | W.ANESCHARGE ---
Anesthesia Charges Start Date/Time Anesthesia Start Date: 10/17/24 Anesthesia Start Time: 11:12 Stop Date/Time Anesthesia Stop Date: 10/17/24 Anesthesia Stop Time: 14:18 Summary Emergency: MDA Coding CPT Codes CPT Codes: ANESTH SURG LOWER ABDOMEN - 68051 ([id number]) P1 - NORMAL HEALTHY PATIENT, QX - STATISTICAL ANALYST SVC W/ MED DIRECTION, QK - HEALTH OCCUPATIONS TEACHER 2-4 CNCRNT ANES PROC Additional Codes: Summary - Emergency: LIZZY ([id number])
--- NOTE | 2024-10-17 14:00 | PM.GSPRC ---
Operative Note Date of procedure: 10/17/24 Pre-op diagnosis: Small-bowel obstruction Post-op diagnosis: Same Type of Procedure: 1. Exploratory laparotomy 2. Ileocecectomy Indications: The patient is a 48-year-old female who presented to the emergency department with a history of nausea, vomiting and diarrhea after recent travel. CT scan again showed what appeared to be a small-bowel obstruction from terminal ileitis. Because she was having antegrade bowel function, she was discharged home, however she returned the following day with significant ongoing discomfort. She was admitted to the hospital and an NG tube was placed. She had significant relief after NG tube placement. Gastrografin was then administered. She did have passage of the Gastrografin into her colon resulting in copious stools, however she continued to be markedly distended. Clamping trials were attempted, however the patient could only tolerate a few hours without having significant pain. Because of this, partial bowel obstruction was suspected and after 6 days of conservative management, I recommended exploration and the patient agreed to proceed. Procedure Description: After discussing the risks and benefits of the procedure, the patient signed informed consent.? The operative site was marked and the patient was brought to the operating room and placed on the operating table in supine position.? Care was taken to pad the patient's pressure points.?? The patient was then intubated by anesthesia.??A TAP block was then performed. Please see their note for details. The operative site was then prepped and draped in the usual sterile fashion.? A time-out was then performed. An incision was made in the midline about the umbilicus. Dissection was taken into the subcutaneous tissue using cautery. The fascia was then incised sharply with the Metzenbaum scissors. The peritoneal cavity was entered. Serous fluid was encountered. There was markedly dilated small bowel also encounter. This all appeared viable. I was able to palpate in the right lower quadrant of the area of concern. It did appear as though there was either an adhesion or a firmness obstructing the bowel. I was unable to visualize this because of the significant distention and dilatation of the small bowel despite evisceration of the small bowel. Therefore, I extended my incision inferiorly and superiorly. An Christian wound protector was then placed into the wound. I was then able to eviscerate the small bowel to create space to view the right lower quadrant. The terminal ileum was firm and densely adherent to the retroperitoneum. It appeared inflamed and strictured. There was no obvious discrete mass. Carefully, using a right angle I scored the lateral peritoneal reflection by the cecum. I then used a right angle to dissect through this tissue, dividing it with cautery. At this point, Dr. Leigh came into the OR and I asked her to assist with mobilization of this mass given the limited space secondary to the patient's dilated bowel. When she arrived, I continued my dissection using a combination of blunt dissection with my finger and a right angle to help peel the inflamed terminal ileum off of the retroperitoneum. All tissue was examined before dividing with cautery. It appeared as though an epiploic appendage was adherent to the area and was evident that a small portion of the sigmoid colon was stuck to the inflamed terminal ileum. This was carefully dissected free. This was examined. There was a possible serosal tear in the area that was attached to the inflammation around the terminal ileum, though it was difficult to discern. This area was oversewn with 3-0 silk suture in an imbricating fashion. I then ran the small bowel back to the ligament of Treitz, pushing the enteric contents retrograde into the stomach. I had confirmed that the NG tube was in place prior to doing this. A large amount of enteric contents were then suctioned from the stomach. This decreased the size of the small bowel and permitted us to better visualize in the abdomen for dissection. The small bowel was palpated during this and no masses were felt. Now we were able to complete mobilization of the terminal ileum and right colon. Once the terminal ileum was mobilized from the retroperitoneum, I then took down the lateral peritoneal reflection. I took my dissection up around the hepatic flexure, completely mobilizing the cecum and right colon. The area was examined. The small bowel immediately proximal to the strictured area was hemorrhagic and thickened. The strictured area was firm. There were no discrete masses. The mesentery was palpated. This was somewhat thickened and there were palpable lymph nodes in the adjacent mesentery. A small amount of fluid was able to be passed from the small bowel through this strictured area into the cecum, however given the inflammation and unclear cause for the stricture, I elected to resect this. First, I chose a healthy-appearing area of ileum proximal to the strictured area and the hemorrhagic area proximal to it. A mesenteric window was created. Through this a blue load CALEB stapler was placed. The small bowel was divided. We then discussed performing a right hemicolectomy versus an ileocecectomy. The patient has had a recent colonoscopy with no tumors noted in the cecum or terminal ileum. The appendix was palpated. The terminal ileum immediately adjacent to the cecum appeared normal. There were no masses. We then chose an area of colon the distal ascending/hepatic flexure region and created a mesenteric window. I then divided this using a blue load CALEB stapler. Both staple lines were inspected for bleeding. There was none. I then divided the mesentery with a combination of clamps and ties. Care was taken to remove the thickened mesentery below the strictured area, dividing closer to the root of the mesentery, to remove the palpable lymph nodes. The specimen was then sent as terminal ileum and cecum. Looking at the distal aspect of the divided small bowel, it appeared somewhat dusky. This seemed to be because the mesentery was divided more proximally here. Therefore to ensure adequate perfusion, I chose an area of small bowel more proximal and elected to 1st divide the mesentery between clamps and ties. The small bowel perfusion was well demarcated after dividing the mesentery and I divided the bowel proximal to this demarcation line. This was sent with the original specimen as additional ileum with a stitch proximal. Once more, I ran the small bowel retrograde to the ligament Treitz, ensuring that all of the bowel appeared perfused, without signs of injury and without nodules, which it did. Again, the stomach was filled with enteric contents which were suctioned from the NG tube. I then brought the small bowel and colon edges together. The blood supply to the staple line on the proximal colon had a palpable pulse. Care was taken to ensure the mesentery was not twisted. I placed a stay stitch. I then created a colotomy and an enterotomy just proximal to staple lines. Through this, Dr. Leigh passed the anvil and stapler of a 100 mm blue load CALEB stapler. She then fired this creating the anastomosis. The staple line was examined. There was no sign of bleeding. I then closed the common enterotomy with interrupted, 3-0 silk Lembert stitches. The anastomosis was widely patent. A Crotch stitch was placed. I then carefully closed the mesentery with a running 3-0 silk suture with care to avoid compromising the vasculature to the colon and small bowel. The anastomosis was then placed in the abdomen. I ensured that the stomach had been adequately emptied by the NG tube and had Anesthesia adjust the position of the NG tube while I palpated it from inside. At then irrigated the abdomen with saline. I re-examined the area of the sigmoid colon that we had oversewn. I re-examined the retroperitoneum. There was no bleeding or masses noted here. There were no liver or peritoneal studding noted. Once this was done, the fascia was closed with a running looped 0 Maxon suture. The skin was then closed with 3-0 Vicryl dermal and 4-0 Monocryl running subcuticular sutures. Sterile dressings were then applied. ? The patient was then woken and transported to the recovery area in stable condition. ? The patient tolerated the procedure well. Findings: 1. Strictured area of terminal ileum adherent to the retroperitoneum and portion of sigmoid colon with proximal dilatation. Ulcerations noted within the lumen with the specimen open. 2. No peritoneal studding 3. No small bowel masses palpable Anesthesia: GETA Surgeon: Marci Bradford MD Estimated blood loss (mL): 10 Additional Specimen Information: Terminal ileum and sigmoid colon with additional ileum, stitch proximal. Condition: stable Disposition: PACU
--- NOTE | 2024-10-17 14:15 | P.ANES_ITS ---
Anesthesia Charges Start Date/Time Anesthesia Start Date: 10/17/24 Anesthesia Start Time: 11:12 Stop Date/Time Anesthesia Stop Date: 10/17/24 Anesthesia Stop Time: 14:18 Coding CPT Codes CPT Codes: ANESTH SURG LOWER ABDOMEN - 64480 ([id number]) QK - BARKEEPER 2-4 CNCRNT ANES PROC, P1 - NORMAL HEALTHY PATIENT, QX - REFERENCE LIBRARIAN SVDeysi W/ MED DIRECTION
--- NOTE | 2024-10-17 14:15 | W.ANESCHARGE ---
Anesthesia Charges Start Date/Time Anesthesia Start Date: 10/17/24 Anesthesia Start Time: 11:12 Stop Date/Time Anesthesia Stop Date: 10/17/24 Anesthesia Stop Time: 14:18 Coding CPT Codes CPT Codes: ANESTH SURG LOWER ABDOMEN - 68108 ([id number]) QK - ASSOCIATE DENTIST 2-4 CNCRNT ANES PROC, P1 - NORMAL HEALTHY PATIENT, QX - ASSISTANT TENNIS COACH SVDeysi W/ MED DIRECTION
[2024-10-17] MEDS: fentaNYL 100 MCG/2 ML inj 50 MCG IVP ×2 (14:22→14:27)
[2024-10-17] MEDS: MEPERIDINE 25 MG/ML INJ 12.5 MG IVP (14:38)
[2024-10-17] MEDS: HYDROmorphone 0.5 mg/0.5 ml inj IVP ×5 (14:41→22:53)
--- NOTE | 2024-10-17 15:48 | P.IMPN_ITS ---
Assessment and Plan Assessment and plan (1) Malnutrition: Problem comment: Minimal oral intake for over 1 week. Start PPN. Status: Acute (2) Abnormal CT scan: Problem comment: - hypodensity at uterine fundus on CT scan 10/10 - patient aware, will need outpatient f/u with Gynecology (still having menses) Status: Acute (3) Hypokalemia: Problem comment: - replace and follow, normal Magnesium Status: Acute (4) SBO (small bowel obstruction): Problem comment: - first episode - no history of abdominal surgeries, reassuring colonoscopy last year, no history of rashes/arthritis, no family history of IBD - NG placed 10/11/24 pm - NPO, IVF, antiemetics and pain management - azithromycin 500 mg IV x 3 doses to cover for potential infectious enteritis given recent travel to . Received ivermectin for possible parasitic infection on October 14 - Dr. Bradford of General Surgery also following Status: Acute (5) Anemia: Problem comment: - noted since 2022 - normocytic, normal TIBC (ferritin not checked) in July 2024: unlikely iron deficiency - needs further outpatient workup when not acutely ill Status: Acute (6) Enteritis: Problem comment: Initial illness appeared to be an acute gastroenteritis obtained well traveling to [facility]. Symptoms appear to have resolved around the time she developed obvious obstructive symptoms Status: Acute (7) S/P small bowel resection: Problem comment: Small-bowel resection, Dr. Bradford, 10/17/2024 Status: Acute (8) Metabolic acidosis: Problem comment: Likely due to normal saline and ketosis from no significant oral intake for about a week. Switch to D5 LR. Acidosis resolved with switching IV fluids Status: Acute Plan Continue in hospital for management of exploratory laparotomy, postop care, IV fluids, IV nutrition, pain management. Total Time Spent Total Time Spent: Total time spent today is 45 minutes in coordination of care discussing with patient, and other providers ongoing management. Subjective Date Seen: 10/17/24 Interval history: 48-year-old female admitted to the hospital with abdominal pain, vomiting and diarrhea. She was vacationing in [facility] for 1 week. At the end of that week she developed vomiting and diarrhea. She was sick enough that she went to an emergency room where she was treated with IV fluids, antiemetics and Cipro. She felt well enough to fly home but on arriving home she was very sick and went to the emergency room. Her diarrhea got better. No previous history of abdominal surgery In our emergency department she was found to have evidence for a small bowel obstruction with a transition point at the terminal ileum. The terminal ileum had changes suggesting local inflammation. She is admitted to the hospital for small-bowel obstruction. NG tube was placed. She was given IV fluids and antiemetics and pain medications. She was treated with a Zithromax in for possible bacterial enteritis causing symptoms. She has continued to have abdominal pain and bloating. NG suctioning is producing a fairly large amount of greenish fluid. No obvious bleeding. She is not passing gas or stools per rectum. No fever. 10/15/2024: Patient reports feeling better today. She passed some gas this morning. Following that she had a stool. Less pain. X-ray shows that the Gastrografin has gone into the colon but small-bowel is still distended. 10/16/2024: She reports feeling better. Continue to have small liquid to soft stools. NG was clamped at around 6:30 a.m. today and she reports no significant abdominal pain or nausea 6 hours later. Patient seen and discussed with Dr. Bradford. 10/17/2024: Patient did well until mid afternoon yesterday when she tried to drink some liquid and developed fairly abrupt onset of bloating and pain. She was connected back to the NG suction and had a moderate amount of gastric fluid removed. This resolved her pain and bloating quite quickly. After review with Dr. Bradford the plan was to take her to the OR today for exploratory laparotomy. Dr. Bradford found a stricture causing the obstruction. She had a small-bowel resection for this. Exam 2 Narrative: Exam Narrative: Patient seen prior to surgery. Breathing is unlabored. Cardiovascular: S1, S2, regular rate and rhythm. Abdomen minimal bowel sounds. Abdomen is distended. minimally diffusely tender. Const: Vital Signs, click to edit/add: Vital Signs - 24 hr 10/16/24 20:00 10/16/24 23:00 10/17/24 07:00 Temperature 98.4 F Pulse Rate Pulse Rate [Pulse Oximeter] 91 91 96 Respiratory Rate 16 16 16 Blood Pressure Blood Pressure [Ri ght Arm] 125/80 Pulse Oximetry 96 Oxygen Delivery Me thod Room Air 10/17/24 07:00 10/17/24 14:13 10/17/24 14:20 Temperature 98.4 F 97.7 F Pulse Rate 87 87 Pulse Rate [Pulse Oximeter] 86 Respiratory Rate 16 12 14 Blood Pressure 120/81 121/82 Blood Pressure [Ri ght Arm] 128/85 Pulse Oximetry 96 96 98 Oxygen Delivery Me thod Room Air 10/17/24 14:25 10/17/24 14:30 10/17/24 14:35 Temperature Pulse Rate 86 93 84 Pulse Rate [Pulse Oximeter] Respiratory Rate 16 14 16 Blood Pressure 127/75 135/78 126/75 Blood Pressure [Ri ght Arm] Pulse Oximetry 97 96 95 Oxygen Delivery Me thod 10/17/24 14:40 10/17/24 14:45 10/17/24 14:50 Temperature Pulse Rate 88 80 Pulse Rate [Pulse Oximeter] Respiratory Rate 16 18 16 Blood Pressure 129/80 132/84 133/84 Blood Pressure [Ri ght Arm] Pulse Oximetry 96 96 97 Oxygen Delivery Me thod 10/17/24 14:55 10/17/24 15:00 Temperature 98.6 F Pulse Rate 79 77 Pulse Rate [Pulse Oximeter] Respiratory Rate 14 16 Blood Pressure 120/75 122/76 Blood Pressure [Ri ght Arm] Pulse Oximetry 96 96 Oxygen Delivery Me thod Documenting provider has reviewed patient's vital signs: yes Labs Labs: Laboratory Results - last 24 hr 10/17/24 10/17/24 10/17/24 03:06 06:27 07:56 WBC 9.38 RBC 3.48 L Hgb 9.6 L Hct 30.2 L MCV 87 MCH 28 MCHC 32 RDW Coeff of Brandon 14.4 Plt Count 372 Neut % (Auto) 83.8 H Lymph % (Auto) 5.5 L [place] % (Auto) 9.1 Eos % (Auto) 1.1 Baso % (Auto) 0.1 Neut # (Auto) 7.90 H Lymph # (Auto) 0.50 L [place] # (Auto) 0.90 Eos # (Auto) 0.10 Baso # (Auto) 0.01 Abs Immat Gran (auto) 0.04 Imm/Tot Granulo (auto) 0.4 Sodium 138 Potassium 3.1 L Chloride 104 Carbon Dioxide 26 Anion Gap 8 BUN 22 Creatinine 0.4 L Estimated Creat Clear 145.30 Estimated GFR 121 Glucose 120 H Calcium 8.3 L Phosphorus 3.5 Magnesium 1.4 L C-Reactive Protein 15.8 H Urine HCG, Qual Negative Lab Acknowledgement Test Added
--- NOTE | 2024-10-17 19:32 | PC.NURSE ---
End of shift: patient up to floor after abd surgery at 1515. Alert and oriented. tolerating PRN IV dilauded and toradol for pain. Patient on intermitt. suction w/NG at 62 in Left Nare and tolerating well. Dressing to abd C/D/I. Family at bedside throughout shift. active ice to site. Bilateral SCD's in use, and patient using IS indep.
[2024-10-17] MEDS: ENOXAPARIN 40 MG/0.4 ML INJ SUBCUT (20:45)
[2024-10-18] MEDS: KETOROLAC 15 MG/ML inj IVP ×4 (00:36→19:43)
--- NOTE | 2024-10-18 00:43 | PC.NURSE ---
RNs encouraged pt to toilet at approximately 2300. Pt was able to void only 25 mL. Upon returning to bed, pt c/o L sided chest burning which felt like acid reflux per pt. EKG was then performed and NSR noted with nonspecific ST and T wave abnormality per EKG result. Machine Stacker updated MD Lainez who reviewed results. No further c/o chest burning have been noted so far this shift. Nursing staff also performed bladder scan after pt voided with PVR of 93 mL noted. Pt educated regarding IS and able to perform independently.
[2024-10-18] MEDS: HYDROmorphone 0.5 mg/0.5 ml inj IVP ×7 (01:02→19:44)
[2024-10-18] MEDS: SODIUM CHLORIDE 0.9 % (FLUSH) 10 ML SYRINGE 5 ML IVF ×6 (03:16→19:44)
--- NOTE | 2024-10-18 03:56 | PC.NURSE ---
Called placed to Lefty to provide update of low urinary output. Pt has voided twice this shift though voided 100 mL total. PVR of 93 mL noted at HS.
[2024-10-18] MEDS: 0.9 % SODIUM CHLORIDE 1000 ml 1,000 ML 100 ML IV (04:09)
[2024-10-18] MEDS: ONDANSETRON 2 MG/ML inj 4 MG IVP (05:22)
--- NOTE | 2024-10-18 06:38 | PC.NURSE ---
End of shift note [id number]: Pt A&Ox4 and able to make needs known. She is independent with transferring and ambulation once NG tube is clamped. VSS- pt has been afebrile and on RA throughout the shift. She has been requesting PRN Dilaudid given Q2H overnight and PRN Toradol be given Q6H overnight to manage pain. Rest encouraged and repositioning performed independently. Ice packs also provided throughout the shift. Bowel sounds noted to be absent x 4 and pt is not yet passing gas postoperatively. Dressing to midline abdomen noted to be C/D/I. One dose of PRN Zofran administered for c/o nausea with no vomiting noted or reported throughout the shift. One c/o L-sided chest burning noted with ambulation last evening. EKG performed with results reviewed by MD. NG remains in place to L nare at 62 cm and hooked up to LIS per order. Pt has been performing IS independently and has been encouraged regarding importance of ambulation postoperatively. IV fluids running per order- switched per MD due to low urinary output. Call light within reach.
[2024-10-18 06:45] LABS: Basophils Percent Auto 0.1 % (0.0-3.0); Eosinophils Percent Auto 0.1 % (0.0-7.0); Hemoglobin* 10.6 gm/dL (12.0-16.0); Immature Granulocytes Pct Auto 0.5 %; Lymphocytes Percent Auto 3.7 % (20-44); Mean Corpuscular HGB Conc 32 gm/dL (32-36); Mean Corpuscular Hemoglobin 28 pg (26-34); Mean Corpuscular Volume 87 fL (80-100); Monocytes Percent Auto 5.6 % (0.0-11.0); Platelet Count* 465 K/uL (140-440); RDW Coefficient of Variation % 14.7 % (11.5-15.5); Red Blood Count 3.79 m/uL (4.00-5.20); White Blood Count* 17.75 K/uL (4.50-11.00)
[2024-10-18 06:56] LABS: Slide Review Reflex No
[2024-10-18 07:00] VITALS: BP 126/78; PULSE 80; PULSE 84; RESP 16; TEMP 36.5; O2SAT 97
[2024-10-18 07:07] LABS: Chloride* 103 mmol/L (96-114); Potassium* 4.1 mmol/L (3.6-5.1); Sodium* 137 mmol/L (135-149)
[2024-10-18 07:10] LABS: Anion Gap 5 mEq/L (7-15); Blood Urea Nitrogen* 21 mg/dL (7-30); Calcium* 8.1 mg/dL (8.4-10.6); Carbon Dioxide* 29 mmol/L (20-32); Creatinine* 0.4 mg/dL (0.5-1.5); Estimated Glomerular Filt Rate 121 ml/min; Glucose* 127 mg/dL (60-115); Phosphorus* 3.3 mg/dL (2.5-4.5)
[2024-10-18 07:11] LABS: Magnesium* 1.9 mg/dL (1.5-2.6)
[2024-10-18 08:56] VITALS: BMI 23.3
--- NOTE | 2024-10-18 09:11 | PM.GSPN ---
Subjective Subjective Date Seen: 10/18/24 Interval history: Overnight had some nausea and a fair amount of pain - required pain medication frequently. EKG obtained for left-sided chest pain. Low UOP resulted in increase in IV fluids. However, she is doing well today. She is in good spirits. Has not had any significant pain today. She has been up walking. She has had increase in urine output. Exam Narrative: Exam Narrative: General: No acute distress HEENT: NG 225 out since OR (1900 ML in OR) abdomen: Remains distended. Hypoactive bowel sounds. This is soft and appropriately tender for the postoperative state. Dressing is clean, dry and intact. Const: Vital Signs, click to edit/add: Vital Signs - 24 hr 10/17/24 14:13 10/17/24 14:20 10/17/24 14:25 Temperature 97.7 F Pulse Rate 87 87 86 Pulse Rate [Pulse Oximeter] Respiratory Rate 12 14 16 Blood Pressure 120/81 121/82 127/75 Blood Pressure [Le ft Arm] Blood Pressure [Ri ght Arm] Pulse Oximetry 96 98 97 Oxygen Delivery Me thod 10/17/24 14:30 10/17/24 14:35 10/17/24 14:40 Temperature Pulse Rate 93 84 88 Pulse Rate [Pulse Oximeter] Respiratory Rate 14 16 16 Blood Pressure 135/78 126/75 129/80 Blood Pressure [Le ft Arm] Blood Pressure [Ri ght Arm] Pulse Oximetry 96 95 96 Oxygen Delivery Me thod 10/17/24 14:45 10/17/24 14:50 10/17/24 14:55 Temperature Pulse Rate 80 79 Pulse Rate [Pulse Oximeter] Respiratory Rate 18 16 14 Blood Pressure 132/84 133/84 120/75 Blood Pressure [Le ft Arm] Blood Pressure [Ri ght Arm] Pulse Oximetry 96 97 96 Oxygen Delivery Me thod 10/17/24 15:00 10/17/24 15:00 10/17/24 15:30 Temperature 98.6 F 97.6 F Pulse Rate 77 81 Pulse Rate [Pulse Oximeter] Respiratory Rate 16 16 16 Blood Pressure 122/76 125/77 Blood Pressure [Le ft Arm] Blood Pressure [Ri ght Arm] Pulse Oximetry 96 97 Oxygen Delivery Me thod Room Air 10/17/24 15:45 10/17/24 16:00 10/17/24 16:15 Temperature 97.6 F 97.6 F 97.7 F Pulse Rate 77 75 80 Pulse Rate [Pulse Oximeter] Respiratory Rate 16 16 16 Blood Pressure 125/81 135/85 134/84 Blood Pressure [Le ft Arm] Blood Pressure [Ri ght Arm] Pulse Oximetry 95 96 96 Oxygen Delivery Me thod Room Air Room Air Room Air 10/17/24 16:45 10/17/24 17:15 10/17/24 18:00 Temperature 97.7 F 97.7 F 97.7 F Pulse Rate 77 77 73 Pulse Rate [Pulse Oximeter] Respiratory Rate 16 16 16 Blood Pressure 139/83 139/88 147/96 H Blood Pressure [Le ft Arm] Blood Pressure [Ri ght Arm] Pulse Oximetry 95 96 95 Oxygen Delivery Me thod Room Air Room Air Room Air 10/17/24 19:00 10/17/24 19:30 10/17/24 20:00 Temperature 97.4 F L 97.4 F L 97.6 F Pulse Rate 81 76 Pulse Rate [Pulse Oximeter] 75 Respiratory Rate 16 16 18 Blood Pressure 134/88 142/93 H Blood Pressure [Le ft Arm] Blood Pressure [Ri ght Arm] 134/88 Pulse Oximetry 96 96 96 Oxygen Delivery Me thod Room Air Room Air Room Air 10/17/24 21:00 10/17/24 22:11 10/17/24 22:11 Temperature 97.9 F Pulse Rate 71 Pulse Rate [Pulse Oximeter] Respiratory Rate 16 16 16 Blood Pressure 133/80 Blood Pressure [Le ft Arm] Blood Pressure [Ri ght Arm] Pulse Oximetry 96 96 Oxygen Delivery Me thod Room Air Room Air 10/18/24 07:00 10/18/24 07:00 10/18/24 07:00 Temperature 97.7 F Pulse Rate Pulse Rate [Pulse Oximeter] 80 84 Respiratory Rate 16 16 16 Blood Pressure Blood Pressure [Le ft Arm] 126/78 Blood Pressure [Ri ght Arm] Pulse Oximetry 97 97 Oxygen Delivery Me thod Room Air Room Air Labs/Imaging Labs Labs: WBC 17 Hgb stable at 10.9 lytes WNL BUN/Cre nl Progress Note:A&P Assessment and plan (1) S/P small bowel resection: Status: Acute (2) Malnutrition: Status: Acute (3) Anemia: Status: Acute Plan The patient is a 48-year-old female who is postop day 1 status post laparotomy and ileocecectomy for small bowel obstruction from 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 - Clamp NG tube today. Sips and chips okay. - Encourage ambulation and IS - an additional 24 hours of prophylactic IV antibiotics for colon resection has been ordered - Lovenox for DVT prophylaxis. - PPN to start today. Special formula needed to be added to administered peripherally. Hoping to hold off on PICC line placement as expecting return of bowel function in the next few days. - Electrolytes today within normal limits. Follow and replace per hospitalist.
[2024-10-18] MEDS: PANTOPRAZOLE SODIUM 40 MG INJ IVP (09:19)
[2024-10-18] MEDS: 5 % DEXTROSE IN LAC RINGER'S 1,000 ML 100 ML IV (09:48)
[2024-10-18] MEDS: ERTAPENEM 1 GM in 0.9 % SODIUM CHLORIDE Mini-bag 100 ML IVPB (10:58)
[2024-10-18] MEDS: AA 4.25%/CALCIUM/LYTES/DEX 5 % 2,000 ML 25 ML IV (11:37)
--- NOTE | 2024-10-18 12:36 | P.IMPN_ITS ---
Assessment and Plan Assessment and plan (1) S/P small bowel resection: Problem comment: Small-bowel resection, Dr. Bradford, 10/17/2024. Status: Acute (2) Malnutrition: Problem comment: Minimal oral intake for over 1 week. Start PPN. Status: Acute (3) Anemia: Problem comment: - noted since 2022 - normocytic, normal TIBC (ferritin not checked) in July 2024: unlikely iron deficiency - needs further outpatient workup when not acutely ill Status: Acute (4) Metabolic acidosis: Problem comment: Likely due to normal saline and ketosis from no significant oral intake for about a week. Switch to D5 LR. Acidosis resolved with switching IV fluids Status: Acute (5) Hypokalemia: Problem comment: - replace and follow, normal Magnesium Status: Acute (6) Dehydration: Problem comment: Postop day 1 from small-bowel resection. Decreased urine output and thirsty. Likely some 3rd spacing of fluid. Bolus now and monitor. Status: Acute Plan Continue in hospital for IV fluids, NG suctioning, management of postop recovery. Total Time Spent Total Time Spent: Total time spent today is 40 minutes in coordination of care discussing with patient and other providers management of bowel obstruction, pain, fluid and electrolytes. Subjective Date Seen: 10/18/24 Interval history: 48-year-old female admitted to the hospital with abdominal pain, vomiting and d iarrhea. She was vacationing in [facility] for 1 week. At the end of that week she developed vomiting and diarrhea. She was sick enough that she went to an emergency room where she was treated with IV fluids, antiemetics and Cipro. She felt well enough to fly home but on arriving home she was very sick and went to the emergency room. Her diarrhea got better. No previous history of abdominal surgery In our emergency department she was found to have evidence for a small bowel obstruction with a transition point at the terminal ileum. The terminal ileum had changes suggesting local inflammation. She is admitted to the hospital for small-bowel obstruction. NG tube was placed. She was given IV fluids and antiemetics and pain medications. She was treated with a Zithromax in for possible bacterial enteritis causing symptoms. She has continued to have abdominal pain and bloating. NG suctioning is producing a fairly large amount of greenish fluid. No obvious bleeding. She is not passing gas or stools per rectum. No fever. 10/15/2024: Patient reports feeling better today. She passed some gas this morning. Following that she had a stool. Less pain. X-ray shows that the Gastrografin has gone into the colon but small-bowel is still distended. 10/16/2024: She reports feeling better. Continue to have small liquid to soft stools. NG was clamped at around 6:30 a.m. today and she reports no significant abdominal pain or nausea 6 hours later. Patient seen and discussed with Dr. Bradford. 10/17/2024: Patient did well until mid afternoon yesterday when she tried to drink some liquid and developed fairly abrupt onset of bloating and pain. She was connected back to the NG suction and had a moderate amount of gastric fluid removed. This resolved her pain and bloating quite quickly. After review with Dr. Bradford the plan was to take her to the OR today for exploratory laparotomy. Dr. Bradford found a stricture causing the obstruction. She had a small-bowel resection for this. 10/18/2024: Patient reports feeling better today. She still requiring regular pain medication. She is not passing gas. She reports being thirsty. Her urine output overnight was low. She has not had any fever or shortness of breath. Exam Narrative: Exam Narrative: She is alert and in no distress. Mood and affect are bright. Respirations are clear to auscultation. Cardiovascular: S1, S2, regular rate and rhythm. Abdomen: Bowel sounds diminished. Midline incision covered by a dressing. Abdomen is soft with mild tenderness consistent with postoperative status. Extremities without edema. Good peripheral perfusion Const: Vital Signs, click to edit/add: Vital Signs - 24 hr 10/17/24 14:13 10/17/24 14:20 10/17/24 14:25 Temperature 97.7 F Pulse Rate 87 87 86 Pulse Rate [Pulse Oximeter] Respiratory Rate 12 14 16 Blood Pressure 120/81 121/82 127/75 Blood Pressure [Le ft Arm] Blood Pressure [Ri ght Arm] Pulse Oximetry 96 98 97 Oxygen Delivery Me thod 10/17/24 14:30 10/17/24 14:35 10/17/24 14:40 Temperature Pulse Rate 93 84 88 Pulse Rate [Pulse Oximeter] Respiratory Rate 14 16 16 Blood Pressure 135/78 126/75 129/80 Blood Pressure [Le ft Arm] Blood Pressure [Ri ght Arm] Pulse Oximetry 96 95 96 Oxygen Delivery Me thod 10/17/24 14:45 10/17/24 14:50 10/17/24 14:55 Temperature Pulse Rate 80 79 Pulse Rate [Pulse Oximeter] Respiratory Rate 18 16 14 Blood Pressure 132/84 133/84 120/75 Blood Pressure [Le ft Arm] Blood Pressure [Ri ght Arm] Pulse Oximetry 96 97 96 Oxygen Delivery Me thod 10/17/24 15:00 10/17/24 15:00 10/17/24 15:30 Temperature 98.6 F 97.6 F Pulse Rate 77 81 Pulse Rate [Pulse Oximeter] Respiratory Rate 16 16 16 Blood Pressure 122/76 125/77 Blood Pressure [Le ft Arm] Blood Pressure [Ri ght Arm] Pulse Oximetry 96 97 Oxygen Delivery Me thod Room Air 10/17/24 15:45 10/17/24 16:00 10/17/24 16:15 Temperature 97.6 F 97.6 F 97.7 F Pulse Rate 77 75 80 Pulse Rate [Pulse Oximeter] Respiratory Rate 16 16 16 Blood Pressure 125/81 135/85 134/84 Blood Pressure [Le ft Arm] Blood Pressure [Ri ght Arm] Pulse Oximetry 95 96 96 Oxygen Delivery Me thod Room Air Room Air Room Air 10/17/24 16:45 10/17/24 17:15 10/17/24 18:00 Temperature 97.7 F 97.7 F 97.7 F Pulse Rate 77 77 73 Pulse Rate [Pulse Oximeter] Respiratory Rate 16 16 16 Blood Pressure 139/83 139/88 147/96 H Blood Pressure [Le ft Arm] Blood Pressure [Ri ght Arm] Pulse Oximetry 95 96 95 Oxygen Delivery Me thod Room Air Room Air Room Air 10/17/24 19:00 10/17/24 19:30 10/17/24 20:00 Temperature 97.4 F L 97.4 F L 97.6 F Pulse Rate 81 76 Pulse Rate [Pulse Oximeter] 75 Respiratory Rate 16 16 18 Blood Pressure 134/88 142/93 H Blood Pressure [Le ft Arm] Blood Pressure [Ri ght Arm] 134/88 Pulse Oximetry 96 96 96 Oxygen Delivery Me thod Room Air Room Air Room Air 10/17/24 21:00 10/17/24 22:11 10/17/24 22:11 Temperature 97.9 F Pulse Rate 71 Pulse Rate [Pulse Oximeter] Respiratory Rate 16 16 16 Blood Pressure 133/80 Blood Pressure [Le ft Arm] Blood Pressure [Ri ght Arm] Pulse Oximetry 96 96 Oxygen Delivery Me thod Room Air Room Air 10/18/24 07:00 10/18/24 07:00 10/18/24 07:00 Temperature 97.7 F Pulse Rate Pulse Rate [Pulse Oximeter] 80 84 Respiratory Rate 16 16 16 Blood Pressure Blood Pressure [Le ft Arm] 126/78 Blood Pressure [Ri ght Arm] Pulse Oximetry 97 97 Oxygen Delivery Me thod Room Air Room Air Documenting provider has reviewed patient's vital signs: yes Labs Labs: Laboratory Results - last 24 hr 10/18/24 06:09 WBC 17.75 H RBC 3.79 L Hgb 10.6 L Hct 33.0 MCV 87 MCH 28 MCHC 32 RDW Coeff of [place] 14.7 Plt Count 465 H Neut % (Auto) 90.0 H Lymph % (Auto) 3.7 L [place] % (Auto) 5.6 Eos % (Auto) 0.1 Baso % (Auto) 0.1 Neut # (Auto) 16.00 H Lymph # (Auto) 0.70 L [place] # (Auto) 1.00 H Eos # (Auto) 0.00 Baso # (Auto) 0.00 Abs Immat Gran (auto) 0.10 Imm/Tot Granulo (auto) 0.5 Sodium 137 Potassium 4.1 Chloride 103 Carbon Dioxide 29 Anion Gap 5 L BUN 21 Creatinine 0.4 L Estimated Creat Clear 145.30 Estimated GFR 121 Glucose 127 H Calcium 8.1 L Phosphorus 3.3 Magnesium 1.9
[2024-10-18 15:00] VITALS: BP 121/76; PULSE 84; RESP 16; TEMP 36.4; O2SAT 96
--- NOTE | 2024-10-18 18:47 | PC.NURSE ---
End of shift: patient is pleasant and cooperative. Alert and orientedx4. tolerating PRN IV Dilaudid and Toradol for pain. Patient is clamped and NG at 62 in Left Nare and tolerating well. Dressing to abd C/D/I. Family at bedside throughout shift. active ice to site. Bilateral SCD's in use, and patient using IS indep. VSS. Patient denies N/V/SOB. Ambulating indep to BR and hallways. Patient tolerating sips and chips. PPN running at 25mls/hr and tolerating well, IV is patent in right AC. New IV site in Left FA patent and SL.
[2024-10-18] MEDS: ENOXAPARIN 40 MG/0.4 ML INJ SUBCUT (19:43)
[2024-10-18 20:09] VITALS: BP 144/83; PULSE 84; RESP 16; TEMP 37.1; O2SAT 97
--- NOTE | 2024-10-18 22:43 | PC.NURSE ---
Patient vitally stable and independent in room. PPN increased during shift and tolerating well. patient denies nausea and bloating. Pain adequately managed with scheduled and PRN pain medications.
[2024-10-18 23:25] VITALS: BP 135/84; PULSE 74; RESP 16; TEMP 36.7; O2SAT 97
[2024-10-19] MEDS: HYDROmorphone 0.5 mg/0.5 ml inj IVP ×5 (00:02→23:46)
[2024-10-19 03:50] VITALS: BP 138/88; PULSE 86; RESP 16; TEMP 36.8; O2SAT 96
[2024-10-19] MEDS: KETOROLAC 15 MG/ML inj IVP ×4 (05:19→23:34)
[2024-10-19] MEDS: SODIUM CHLORIDE 0.9 % (FLUSH) 10 ML SYRINGE 5 ML IVF ×4 (05:21→23:48)
--- NOTE | 2024-10-19 06:55 | PC.NURSE ---
Pt alert and oriented x3. Afebrile. Pt reports 2-9/10 pain in abdomen, pain managed with PRN medication. Pt?s abdominal dressing is CDI. Pt has?NG tube in left nare at ?62? cm that is clamped. Pt is up walking halls, voiding, and tolerating sips and chips. PPN running at 75mls/hr, pt tolerating well. Pt reports not passing gas yet.
[2024-10-19 07:00] VITALS: BP 131/91; PULSE 62; RESP 18; TEMP 36.7; O2SAT 96
--- NOTE | 2024-10-19 07:08 | PM.GSPN ---
Subjective Subjective Date Seen: 10/19/24 Interval history: Patient is doing well today. Her pain is well controlled and she does not take too much pain medication. She is not passing gas. She denies nausea vomiting. Her NG has been clamped since yesterday. Exam Narrative: Exam Narrative: Abdomen is soft, mildly distended, not tender to palpation, surgical dressing was removed and midline incision is covered with Steri-Strips. There is no surrounding erythema. Const: Vital Signs, click to edit/add: Vital Signs - 24 hr 10/18/24 15:00 10/18/24 15:00 10/18/24 15:00 Temperature 97.6 F Pulse Rate [Pulse Oximeter] 84 84 Respiratory Rate 16 16 16 Blood Pressure [Le ft Arm] 121/76 Blood Pressure [Ri ght Arm] Pulse Oximetry 96 96 Oxygen Delivery Me thod Room Air Room Air 10/18/24 20:09 10/18/24 23:25 10/18/24 23:25 Temperature 98.8 F 98.1 F Pulse Rate [Pulse Oximeter] 84 74 Respiratory Rate 16 16 16 Blood Pressure [Le ft Arm] 135/84 Blood Pressure [Ri ght Arm] 144/83 H Pulse Oximetry 97 97 97 Oxygen Delivery Me thod Room Air Room Air Room Air 10/19/24 03:50 Temperature 98.2 F Pulse Rate [Pulse Oximeter] 86 Respiratory Rate 16 Blood Pressure [Le ft Arm] 138/88 Blood Pressure [Ri ght Arm] Pulse Oximetry 96 Oxygen Delivery Me thod Room Air Progress Note:A&P Assessment and plan (1) S/P small bowel resection: Status: Acute Plan 48-year-old female s/p exploratory laparotomy and ileocecectomy for small bowel obstruction POD 2. Patient is recovering well. She does not have return of bowel function yet. Her NG has been clamped and she has been tolerating that. We will leave the NG tube in place and advance her to clears.
[2024-10-19 07:13] LABS: Chloride* 101 mmol/L (96-114)
[2024-10-19 07:14] LABS: Albumin* 2.6 g/dL (3.3-5.0); Potassium* 3.5 mmol/L (3.6-5.1); Sodium* 134 mmol/L (135-149)
[2024-10-19 07:17] LABS: Alanine Aminotransferase* 16 U/L (4-35); Alkaline Phosphatase* 80 U/L (40-150); Anion Gap 6 mEq/L (7-15); Aspartate Amino Transferase* 19 U/L (12-35); Bilirubin Total* 0.3 mg/dL (0.1-1.5); Blood Urea Nitrogen* 21 mg/dL (7-30); Carbon Dioxide* 27 mmol/L (20-32); Creatinine* 0.4 mg/dL (0.5-1.5); Estimated Glomerular Filt Rate 121 ml/min; Phosphorus* 2.7 mg/dL (2.5-4.5); Total Protein* 5.1 g/dL (6.0-8.3)
[2024-10-19 07:18] LABS: Calcium* 7.6 mg/dL (8.4-10.6); Glucose* 112 mg/dL (60-115); Magnesium* 1.9 mg/dL (1.5-2.6)
[2024-10-19] MEDS: PANTOPRAZOLE SODIUM 40 MG INJ IVP (08:56)
[2024-10-19 11:00] VITALS: BP 143/87; PULSE 83; RESP 18; TEMP 37; O2SAT 97
[2024-10-19] MEDS: ERTAPENEM 1 GM in 0.9 % SODIUM CHLORIDE Mini-bag 100 ML IVPB (11:05)
[2024-10-19] MEDS: AA 4.25%/CALCIUM/LYTES/DEX 5 % 2,000 ML 75 ML IV (11:53)
[2024-10-19 15:00] VITALS: BP 139/85; PULSE 74; RESP 18; TEMP 36.9; O2SAT 98
--- NOTE | 2024-10-19 16:02 | P.IMPN_ITS ---
Assessment and Plan Assessment and plan (1) S/P small bowel resection: Problem comment: Small-bowel resection, Dr. Bradford, 10/17/2024. Making slow progress. Still with postop ileus. Anticipate antegrade bowel function in the next couple days Status: Acute (2) Malnutrition: Problem comment: Minimal oral intake for over 1 week. Start PPN. Clear liquid diet has begun as well Status: Acute (3) Metabolic acidosis: Problem comment: Likely due to normal saline and ketosis from no significant oral intake for about a week. Switch to D5 LR. Acidosis resolved with switching IV fluids Status: Acute (4) SBO (small bowel obstruction): Problem comment: After surgery this was found to be a stricture. Pathology pending Status: Acute Plan Continue in-hospital for IV fluids pending antegrade bowel function and adequate hydration and nutrition. Total Time Spent Total Time Spent: Total time spent today is 40 minutes in evaluation and management, recurrent reassessment and discussion with patient and other providers ongoing management Subjective Date Seen: 10/19/24 Interval history: 48-year-old female admitted to the hospital with abdominal pain, vomiting and diarrhea. She was vacationing in [facility] for 1 week. At the end of that week she developed vomiting and diarrhea. She was sick enough that she went to an emergency room where she was treated with IV fluids, antiemetics and Cipro. She felt well enough to fly home but on arriving home she was very sick and went to the emergency room. Her diarrhea got better. No previous history of abdominal surgery In our emergency department she was found to have evidence for a small bowel obstruction with a transition point at the terminal ileum. The terminal ileum had changes suggesting local inflammation. She is admitted to the hospital for small-bowel obstruction. NG tube was placed. She was given IV fluids and antiemetics and pain medications. She was treated with a Zithromax in for possible bacterial enteritis causing symptoms. She has continued to have abdominal pain and bloating. NG suctioning is producing a fairly large amount of greenish fluid. No obvious bleeding. She is not passing gas or stools per rectum. No fever. 10/15/2024: Patient reports feeling better today. She passed some gas this morning. Following that she had a stool. Less pain. X-ray shows that the Gastrografin has gone into the colon but small-bowel is still distended. 10/16/2024: She reports feeling better. Continue to have small liquid to soft stools. NG was clamped at around 6:30 a.m. today and she reports no significant abdominal pain or nausea 6 hours later. Patient seen and discussed with Dr. Bradford. 10/17/2024: Patient did well until mid afternoon yesterday when she tried to drink some liquid and developed fairly abrupt onset of bloating and pain. She was connected back to the NG suction and had a moderate amount of gastric fluid removed. This resolved her pain and bloating quite quickly. After review with Dr. Bradford the plan was to take her to the OR today for exploratory laparotomy. Dr. Bradford found a stricture causing the obstruction. She had a small-bowel r esection for this. 10/18/2024: Patient reports feeling better today. She still requiring regular pain medication. She is not passing gas. She reports being thirsty. Her urine output overnight was low. She has not had any fever or shortness of breath. 10/19/2024: Patient reports feeling a little bit of fullness and bloating today pain is better but still requiring occasional pain medicine. She has not passed gas or stool. NG is still in place but not connected to suction. Urinating regularly. Tolerating small amounts of clear liquids Exam Narrative: Exam Narrative: She is alert and appears in no distress. Respirations are clear to auscultation. Cardiovascular: S1, S2, regular rate and rhythm. Abdomen: Diminished bowel sounds. Abdomen is soft, mildly distended, incision is clean and dry. Minimal tenderness. Const: Vital Signs, click to edit/add: Vital Signs - 24 hr 10/18/24 20:09 10/18/24 23:25 10/18/24 23:25 Temperature 98.8 F 98.1 F Pulse Rate [Pulse Oximeter] 84 74 Respiratory Rate 16 16 16 Blood Pressure [Le ft Arm] 135/84 Blood Pressure [Ri ght Arm] 144/83 H Pulse Oximetry 97 97 97 Oxygen Delivery Me thod Room Air Room Air Room Air 10/19/24 03:50 10/19/24 07:00 10/19/24 07:00 Temperature 98.2 F 98.0 F Pulse Rate [Pulse Oximeter] 86 62 Respiratory Rate 16 18 18 Blood Pressure [Le ft Arm] 138/88 Blood Pressure [Ri ght Arm] 131/91 H Pulse Oximetry 96 96 96 Oxygen Delivery Me thod Room Air Room Air Room Air 10/19/24 07:00 10/19/24 11:00 10/19/24 15:00 Temperature 98.6 F 98.4 F Pulse Rate [Pulse Oximeter] 62 83 74 Respiratory Rate 18 18 18 Blood Pressure [[facility] Arm] Blood Pressure [Ri ght Arm] 143/87 H 139/85 Pulse Oximetry 97 98 Oxygen Delivery Me thod Room Air Room Air Documenting provider has reviewed patient's vital signs: yes Labs Labs: Laboratory Results - last 24 hr 10/19/24 06:13 Sodium 134 L Potassium 3.5 L Chloride 101 Carbon Dioxide 27 Anion Gap 6 L BUN 21 Creatinine 0.4 L Estimated Creat Clear 145.30 Estimated GFR 121 Glucose 112 Calcium 7.6 L Phosphorus 2.7 Magnesium 1.9 Total Bilirubin 0.3 AST 19 ALT 16 Alkaline Phosphatase 80 Total Protein 5.1 L Albumin 2.6 L
--- NOTE | 2024-10-19 18:55 | PC.NURSE ---
End of Shift: Patient pleasant and cooperative, A&O. VSS, afebrile. NG at 62cm clamped this shift. Patient reports pain in her abdomen this shift, PRN medication given, see MAR. Dressing to abdomen C/D/I. Tolerating clear liquid diet. Has not passed gas, no BM today. Independent in room.
[2024-10-19 19:00] VITALS: BP 131/82; PULSE 83; RESP 16; TEMP 37.1; O2SAT 97
[2024-10-19] MEDS: ENOXAPARIN 40 MG/0.4 ML INJ SUBCUT (20:48)
--- NOTE | 2024-10-19 22:42 | PC.NURSE ---
Pt had small/med loose brown stool, no blood noted.
[2024-10-19 23:40] VITALS: BP 140/91; PULSE 76; RESP 16; TEMP 37.1; O2SAT 98
[2024-10-20] VITALS (8 sets, daily range): BP systolic 129–141; BP diastolic 84–99; PULSE 76–80; RESP 16–18; TEMP 36.4–37.1; O2SAT 96–99
[2024-10-20] MEDS: SODIUM CHLORIDE 0.9 % (FLUSH) 10 ML SYRINGE 5 ML IVF ×4 (04:35→20:24)
[2024-10-20] MEDS: HYDROmorphone 0.5 mg/0.5 ml inj IVP ×4 (04:35→20:23)
--- NOTE | 2024-10-20 04:44 | PC.NURSE ---
Pt alert and oriented x3. Afebrile. Pt had x3 moderate loose stools overnight. Pt reports 2-5/10 intermittent cramping pain in abdomen, pain managed with PRN medications. Pt's NG tube is clamped at 62cm. Pt is up ind, walking halls, voiding, and tolerating a clear liquid diet.
[2024-10-20] MEDS: KETOROLAC 15 MG/ML inj IVP ×3 (05:24→18:45)
[2024-10-20 06:40] LABS: Chloride* 100 mmol/L (96-114)
[2024-10-20 06:41] LABS: Potassium* 3.6 mmol/L (3.6-5.1); Sodium* 132 mmol/L (135-149)
[2024-10-20 06:44] LABS: Anion Gap 4 mEq/L (7-15); Blood Urea Nitrogen* 14 mg/dL (7-30); Calcium* 7.9 mg/dL (8.4-10.6); Carbon Dioxide* 28 mmol/L (20-32); Creatinine* 0.4 mg/dL (0.5-1.5); Estimated Glomerular Filt Rate 121 ml/min; Glucose* 108 mg/dL (60-115); Phosphorus* 3.9 mg/dL (2.5-4.5)
[2024-10-20] MEDS: PANTOPRAZOLE SODIUM 40 MG INJ IVP (08:47)
--- NOTE | 2024-10-20 10:24 | PM.IMPN1 ---
Assessment and Plan Assessment and plan (1) SBO (small bowel obstruction): Problem comment: - ileal stricture noted intraoperatively 10/17/24 Status: Acute (2) S/P small bowel resection: Problem comment: - Small-bowel resection, Dr. Bradford, 10/17/2024 Status: Acute (3) Malnutrition: Problem comment: - Minimal oral intake for over 1 week, was on PPN postoperatively, as of 10/20 tolerating po intake Status: Acute (4) Metabolic acidosis: Problem comment: - Likely due to normal saline and ketosis from no significant oral intake for about a week, improved Status: Acute Plan - per above, likely home 1-2 days Subjective Date Seen: 10/20/24 Interval history: 48-year-old female admitted to the hospital on 10/11/24 with abdominal pain, vomiting and diarrhea. She was vacationing in [facility] for 1 week. At the end of that week she developed vomiting and diarrhea. She was sick enough that she went to an ER there and was IV fluids, antiemetics, antiparasitics, and Cipro. She felt well enough to fly home but on arriving home she was very sick and went to the emergency room, diagnosed with an SBO. No previous history of abdominal surgery. Had NG tube placed, then ultimately underwent exploratory laparotomy and ileocecectomy on 10/17/24. Received short course of PPN, also on IV Ertapenem. Over the past 2 days, has started to advance diet to clears. Overnight, had 3 BMs and is ready to have NG tube out and advance diet further. Dr. Bradford of General Surgery following. Exam Narrative: Exam Narrative: Alert and Oriented, nontoxic + BS No concerning skin lesions Const: Vital Signs, click to edit/add: Vital Signs - 24 hr 10/19/24 11:00 10/19/24 15:00 10/19/24 15:00 Temperature 98.6 F 98.4 F Pulse Rate [Pulse Oximeter] 83 74 Respiratory Rate 18 18 18 Blood Pressure [Le ft Arm] Blood Pressure [Ri ght Arm] 143/87 H 139/85 Pulse Oximetry 97 98 98 Oxygen Delivery Me thod Room Air Room Air Room Air 10/19/24 15:00 10/19/24 19:00 10/19/24 23:40 Temperature 98.7 F Pulse Rate [Pulse Oximeter] 74 83 Respiratory Rate 18 16 16 Blood Pressure [Le ft Arm] 131/82 Blood Pressure [Ri ght Arm] Pulse Oximetry 97 98 Oxygen Delivery Ks thod Room Air Room Air 10/19/24 23:40 10/20/24 02:21 10/20/24 07:00 Temperature 98.7 F 97.6 F 97.8 F Pulse Rate [Pulse Oximeter] 76 80 76 Respiratory Rate 16 16 18 Blood Pressure [Le ft Arm] 140/91 H 129/87 138/85 Blood Pressure [Ri ght Arm] Pulse Oximetry 98 97 98 Oxygen Delivery Ks thod Room Air Room Air Room Air 10/20/24 07:00 10/20/24 07:00 Temperature Pulse Rate [Pulse Oximeter] 76 Respiratory Rate 18 18 Blood Pressure [Le ft Arm] Blood Pressure [Ri ght Arm] Pulse Oximetry 98 Oxygen Delivery Ks thod Room Air Labs Labs: Laboratory Results - last 24 hr 10/20/24 05:58 Sodium 132 L Potassium 3.6 Chloride 100 Carbon Dioxide 28 Anion Gap 4 L BUN 14 Creatinine 0.4 L Estimated Creat Clear 145.30 Estimated GFR 121 Glucose 108 Calcium 7.9 L Phosphorus 3.9 Magnesium 2.0
[2024-10-20] MEDS: ERTAPENEM 1 GM in 0.9 % SODIUM CHLORIDE Mini-bag 100 ML IVPB (11:14)
--- NOTE | 2024-10-20 14:26 | PC.NURSE ---
End of Shift ([id number]): Patient pleasant and cooperative, A&O. VSS, afebrile. Dressing to abdomen C/D/I. Patient reports having 3 moderate loose BM?s this shift. Patient reports passing gas. Patient reports cramping pain in her abdomen managed with PRN medication, see MAR. Tolerating full liquid diet, PPN d/c per MD. NG removed this shift. Showered today. Independent in room.
--- NOTE | 2024-10-20 15:41 | PM.GSPN ---
Subjective Subjective Date Seen: 10/20/24 Interval history: Walter has had return of bowel function. she has tolerated NG clamping for 2 days with a clear liquid diet yesterday. NG was removed today. She denies any nausea. She would like to eat a full liquid diet. She has been up ambulating. Exam Narrative: Exam Narrative: General: No acute distress CV: Regular rate Respiratory: Breathing nonlabored on room air Abdomen: Distended but soft. Minimally tender. Incision is clean and dry without erythema. Const: Vital Signs, click to edit/add: Vital Signs - 24 hr 10/19/24 19:00 10/19/24 23:40 10/19/24 23:40 Temperature 98.7 F 98.7 F Pulse Rate [Pulse Oximeter] 83 76 Respiratory Rate 16 16 16 Blood Pressure [Le ft Arm] 131/82 140/91 H Pulse Oximetry 97 98 98 Oxygen Delivery Me thod Room Air Room Air Room Air 10/20/24 02:21 10/20/24 07:00 10/20/24 07:00 Temperature 97.6 F 97.8 F Pulse Rate [Pulse Oximeter] 80 76 Respiratory Rate 16 18 18 Blood Pressure [Le ft Arm] 129/87 138/85 Pulse Oximetry 97 98 98 Oxygen Delivery Me thod Room Air Room Air Room Air 10/20/24 07:00 10/20/24 11:27 Temperature 98.2 F Pulse Rate [Pulse Oximeter] 76 77 Respiratory Rate 18 18 Blood Pressure [Le ft Arm] 131/99 H Pulse Oximetry 96 Oxygen Delivery Me thod Room Air Labs/Imaging Labs Labs: Sodium is mildly low at 132. Remainder of electrolytes normal. Pathology returned showing acute on chronic Crohn's of the terminal ileum. This was discussed with the patient. Progress Note:A&P Assessment and plan (1) S/P small bowel resection: Status: Acute (2) Anemia: Status: Acute (3) Crohn disease of ileum: Status: Acute Plan The patient is a 48-year-old female who is postop day 3 from laparotomy and ileocecectomy for small bowel obstruction caused by stricture. Pathology came back today showing Crohn's. I provided the patient with the pathology report and discussed that she will need to see gastroenterology after discharge. They will discuss whether not she would need to be on additional medication. -full liquid diet today -encourage ambulation and IS -Lovenox for DVT prophylaxis -transition to oral pain medication -I discussed with the patient that her abdomen is still quite distended this is likely secondary to atony/ileus from the significant distension that she had for the 10 days prior to surgery, this should improve with time, however she is having nausea then we need to scale back on her diet. If she continues to have return of bowel function I think it is fine to continue to advance her diet. -possible discharge home tomorrow versus Wednesday as long as she is able to tolerate a regular diet.
[2024-10-20] MEDS: HYDROCODONE-ACETAMIN 5-325 MG 1 TAB PO ×3 (16:57→21:49)
--- NOTE | 2024-10-20 19:33 | PC.NURSE ---
Patient alert and orientedx4, surgical site intact. Complains of pain 5-7/10. PRN norco was given with no effect. Patient was then given PRN Toradol which she also stated was not effective on pain reassessment. Continued to rate her pain 7/10.MD was notified. Describes it as a constant achy pain. One time order of 0.5MG Dilaudid obtained. Incoming RN was advised on situation. Dilaudid will be given by oncoming RN. Patient otherwise stable. No nausea after dinner or during episodes of pain ( Had icecream) Ambulates to the bathroom independently. Other Vital signs WNL. Family at bedside.
[2024-10-20] MEDS: ENOXAPARIN 40 MG/0.4 ML INJ SUBCUT (20:24)
[2024-10-21] MEDS: HYDROCODONE-ACETAMIN 5-325 MG 1 TAB PO ×3 (01:53→09:37)
[2024-10-21 01:54] VITALS: BP 132/89; PULSE 81; RESP 18; TEMP 36.5; O2SAT 97
--- NOTE | 2024-10-21 05:19 | PC.NURSE ---
Shift note: Patient is doing well tolerating regular diet well without nausea, vomiting or abdominal pain. Patient continue to have watery diarrhea without abdominal pain. She is more particular about the pain medication particularly the Narco. She make sure to receive it every 4 hours. She rates the pain at 6 and 7. Incision sites appears dry and clean. Patient is independent in room. No fever recorded, vitally stable. Patient had adequate sleep.
--- NOTE | 2024-10-21 06:14 | PC.NURSE ---
Shift note: Patient is doing well tolerating full liquid diet well without nausea, vomiting or abdominal pain. At 1999, deluded was given and patient reacted to it with some episode of nausea that lasted for about a minute without vomiting. Patient continue to have watery diarrhea without abdominal pain. She is more particular about the pain medication particularly the Narco. She make sure to receive it every 4 hours. She rates the pain at 6 and 7. Incision sites appears dry and clean. Patient is independent in room. No fever recorded, vitally stable. Patient had adequate sleep.
[2024-10-21 07:00] VITALS: BP 132/89; PULSE 81; RESP 18; TEMP 36.5; O2SAT 97
[2024-10-21 07:09] LABS: Chloride* 100 mmol/L (96-114); Sodium* 133 mmol/L (135-149)
[2024-10-21 07:10] LABS: Potassium* 3.9 mmol/L (3.6-5.1)
[2024-10-21 07:13] LABS: Anion Gap 5 mEq/L (7-15); Blood Urea Nitrogen* 8 mg/dL (7-30); Calcium* 8.5 mg/dL (8.4-10.6); Carbon Dioxide* 28 mmol/L (20-32); Creatinine* 0.5 mg/dL (0.5-1.5); Est. Creatinine Clearance* 116.24; Estimated Glomerular Filt Rate 114 ml/min; Glucose* 80 mg/dL (60-115)
[2024-10-21] MEDS: SODIUM CHLORIDE 0.9 % (FLUSH) 10 ML SYRINGE 5 ML IVF (08:57)
[2024-10-21] MEDS: PANTOPRAZOLE SODIUM 40 MG INJ IVP (08:57)
--- NOTE | 2024-10-21 09:27 | PM.DS1 ---
DS: Providers Provider Date Seen: 10/21/24 Date of admission: 10/11/24 15:42 Primary care physician: Miracle Brennan PA-C Admitting Clinician: Ines Gilman MD Consults: 10/11/24 15:42 Consult to Physician [CONS] Routine Comment: Consulting Provider: General Surgery, [facility] Has provider been notified: No 10/16/24 09:28 Consult to Nutrition [CONS] Routine Comment: Reason for consult:: Nutritional Consult 10/18/24 09:23 Consult to Nutrition [CONS] Routine Comment: Reason for consult:: Nutritional Consult Attending Physician on discharge: Dea Lainez MD DS: Summary Hospital Course Hospital Course: Patient was admitted to the hospital for abdominal pain, vomiting and diarrhea. She was evaluated in the emergency department and diagnosed with a small-bowel obstruction. She had an NG tube placed and then ultimately underwent exploratory laparotomy and ileocecectomy on 10/17/2024. Pathology demonstrated evidence of Crohn's disease. During her hospital stay she did receive a short course of TPN, as well as IV ertapenem. Her NG tube has since been removed, she has had return of bowel function and her diet has been advanced to regular. At the time of discharge the patient was tolerating a diet, ambulating without difficulty, had return of bowel function pain was well controlled. Time Spent with Patient Time attestation: Total time spent providing and/or coordinating discharge services: Exam Narrative: Exam Narrative: General: Alert and oriented, no acute distress Abdomen: Moderate distention, soft and nontender. Midline incision with Steri-Strips in place clean/dry/intact. Const: Vital Signs, click to edit/add: Vital Signs - 24 hr 10/20/24 11:27 10/20/24 15:42 10/20/24 16:38 Temperature 98.2 F 98.2 F Pulse Rate [Pulse Oximeter] 77 80 80 Respiratory Rate 18 18 18 Blood Pressure [Le ft Arm] 131/99 H 138/86 Pulse Oximetry 96 99 Oxygen Delivery Me thod Room Air Room Air 10/20/24 16:38 10/20/24 19:00 10/20/24 21:52 Temperature 98.7 F 97.5 F L Pulse Rate [Pulse Oximeter] 79 78 Respiratory Rate 18 18 18 Blood Pressure [Le ft Arm] 141/91 H 135/84 Pulse Oximetry 99 96 96 Oxygen Delivery Me thod Room Air Room Air Room Air 10/20/24 23:00 10/20/24 23:00 10/21/24 01:54 Temperature 97.7 F Pulse Rate [Pulse Oximeter] 78 81 Respiratory Rate 18 18 18 Blood Pressure [Le ft Arm] 132/89 Pulse Oximetry 96 97 Oxygen Delivery Me thod Room Air Room Air DS: Data Data Completed and Pending Labs on day of discharge: Labs from last 24 hours 10/21/24 05:55 Sodium 133 L Potassium 3.9 Chloride 100 Carbon Dioxide 28 Anion Gap 5 L BUN 8 Creatinine 0.5 Estimated Creat Clear 116.24 Estimated GFR 114 Glucose 80 Calcium 8.5 Phosphorus 4.0 Magnesium 2.0 Discharge Plan Discharge Disposition: Home, Self-Care Date of Admission: 10/11/24 15:42 Attending Provider on Discharge: Kandis Andersen Consulting Providers: Kandis Andersen; Raffy Leigh; Marci Bradford Primary Care Provider: Miracle Brennan Condition: Stable Anticipated Discharge Date/Time: 10/21/24 09:21 Discharge Medications: New hydrocodone-acetaminophen 5-325 mg tablet 1 tab PO Q6H PRN (Reason: pain) Qty: 25 0RF Continued ondansetron 4 mg tablet,disintegrating 4 mg PO Q6H PRN (Reason: nausea and vomiting) Discharge Orders: Discharge Order (Routine); Ordered 10/21/24 Ordered By: Kandis Andersen Patient Education: Crohn Disease (GEN), Surgical Site Infections (DC) Additional Instructions: Wound care: Your sutures are under the skin and will dissolve over time. Leave steri strips (white bandages) over incisions until they fall off (or remove after 7 days). OK to shower tomorrow but avoid bathing, soaking or swimming for 2 weeks. Pat the incisions dry. No need to wash or scrub the area. Apply ice to the area as needed for swelling. It is also OK to use a heating pad if this provides more comfort to you. Pain control: You were prescribed a pain medication. This medication contains acetaminophen (Tylenol). If you are taking your prescribed pain pills 4 times daily, do not take additional acetaminophen. As your pain improves, you can try taking acetaminophen instead of the prescribed pain pill. It is ok to take Ibuprofen or Naproxen (per directions on packaging). This medication helps with inflammation and swelling. Take an uldg-zck-rqkfeil stool softener while you are taking prescribed pain medications to help alleviate constipation. I recommend Senna and/or Colace. Take as directed on package. These are available over the counter. Follow-up Follow up with Dr. Bradford in 2 weeks Please call if you are experiencing severe pain, nausea, vomiting, difficulty urinating, fever or have not had bowel movement in 4 days after surgery. To speak to the electronics test engineer surgeon after hours please call [phone]. Activity Level: Activity as Tolerated and No strenuous activity Activity Detail: No lifting > 20 pounds for 4 weeks from surgery Discharge Diet: Regular Follow Up Appointments: Miracle Brennan PA-C [Primary Care Provider] - Marci Bradford MD [Staff Physician] - Forms: [employer] Info Instructions
--- NOTE | 2024-10-21 10:00 | PM.DS1 ---
DS: Providers Provider Date Seen: 10/21/24 Date of admission: 10/11/24 15:42 Primary care physician: Miracle Brennan PA-C Admitting Clinician: Ines Gilman MD Consults: 10/11/24 15:42 Consult to Physician [CONS] Routine Comment: Consulting Provider: General Surgery, [facility] Has provider been notified: No 10/16/24 09:28 Consult to Nutrition [CONS] Routine Comment: Reason for consult:: Nutritional Consult 10/18/24 09:23 Consult to Nutrition [CONS] Routine Comment: Reason for consult:: Nutritional Consult Attending Physician on discharge: Kayli Hall MD Date of Discharge: 10/21/24 DS: Diagnosis Discharge Diagnosis (1) S/P small bowel resection: Status: Acute Problem details: - Small-bowel resection, Dr. Bradford, 10/17/2024 (2) Anemia: Status: Acute Problem details: - noted since 2022 - normocytic, normal TIBC (ferritin not checked) in July 2024: unlikely iron deficiency - needs further outpatient workup when not acutely ill (3) Crohn disease of ileum: Status: Acute Problem details: - noted on pathology (4) Abnormal CT scan: Status: Acute Problem details: - hypodensity at uterine fundus on CT scan 10/10 - patient aware, will need outpatient f/u with Gynecology (still having menses) DS: Summary Hospital Course Hospital Course: Walter was admitted to the hospital on 10/11/24 for abdominal pain, vomiting, diarrhea (following a trip to , where she was also seen urgently for symptoms and treated with IVFs, an IV antiparasitic, and antibiotic). In the ER, diagnosed with SBO; had NG tube placed and then ultimately underwent exploratory laparotomy and ileocecectomy on 10/17/2024. Surgical pathology demonstrated evidence of Crohn's disease. During her hospital stay she did receive a short course of TPN as well as IV ertapenem. Her NG tube has since been removed, she has had return of bowel function and her diet has been advanced to regular. Followup for PCP: - Assist with referral to [facility] for new Crohn's diagnosis - further workup for anemia - outpatient Gynecology referral for abnormality of uterine fundus noted incidentally on 10/10/24 CT scan Status at Discharge Functional status at discharge: independent ambulation Overall status at discharge: patient is progressing back to baseline Time Spent with Patient Time attestation: Total time spent providing and/or coordinating discharge services: Time spent: Greater than 30 minutes Exam Const: Vital Signs, click to edit/add: Vital Signs - 24 hr 10/20/24 11:27 10/20/24 15:42 10/20/24 16:38 Temperature 98.2 F 98.2 F Pulse Rate [Pulse Oximeter] 77 80 80 Respiratory Rate 18 18 18 Blood Pressure [Le ft Arm] 131/99 H 138/86 Pulse Oximetry 96 99 Oxygen Delivery Me thod Room Air Room Air 10/20/24 16:38 10/20/24 19:00 10/20/24 21:52 Temperature 98.7 F 97.5 F L Pulse Rate [Pulse Oximeter] 79 78 Respiratory Rate 18 18 18 Blood Pressure [Le ft Arm] 141/91 H 135/84 Pulse Oximetry 99 96 96 Oxygen Delivery Me thod Room Air Room Air Room Air 10/20/24 23:00 10/20/24 23:00 10/21/24 01:54 Temperature 97.7 F Pulse Rate [Pulse Oximeter] 78 81 Respiratory Rate 18 18 18 Blood Pressure [Le ft Arm] 132/89 Pulse Oximetry 96 97 Oxygen Delivery Me thod Room Air Room Air 10/21/24 07:00 10/21/24 07:00 Temperature 97.7 F Pulse Rate [Pulse Oximeter] 81 Respiratory Rate 18 18 Blood Pressure [Le ft Arm] 132/89 Pulse Oximetry 97 97 Oxygen Delivery Me thod Room Air Room Air DS: Data Data Completed and Pending Completed studies during hospitalization: 10/10/24 cc: Santo Obrien D.O.; Miracle FABIAN~ For Patients: As a result of the 21st Century Cures Act, medical imaging exams and procedure reports are released immediately into your electronic medical record. You may view this report before your referring provider. If you have questions, please contact your health care provider. INDICATION: Diffuse abdominal pain, nausea, vomiting, diarrhea and bloating. TECHNIQUE: Axial images were obtained from the diaphragm to the pubic symphysis. Reformats were obtained in the coronal and sagittal plane. IV Contrast: 66 cc Isovue 370 Oral Contrast: None COMPARISON: None. FINDINGS: Lower chest: Areas of discoid atelectasis lung bases. Liver: Unremarkable. Normal in size and attenuation. No masses. Gallbladder and bile ducts: Unremarkable. No stones or inflammation. No biliary dilatation. Spleen: Unremarkable. Normal in size without mass. Pancreas: Unremarkable. No mass or inflammation. Adrenal glands: Unremarkable. No nodules. Kidneys: Unremarkable. No masses, stones, or hydronephrosis. Vasculature: Unremarkable. GI tract: Small ascites with dilated loops of small bowel extending to the level of the terminal ileum. At this level the terminal ileum is decompressed with somewhat irregular appearance of the wall and hyperenhancement (series 2, image 105). Possible small sinus tract is questioned. No definite abscess. No pneumoperitoneum. Some hyperenhancement of the colon although the colon is decompressed. Subcentimeter mesenteric lymph nodes. Pelvis: Retroverted uterus with somewhat amorphous hypodensities which may represent prominence of the endometrium versus underlying leiomyomata. Bones: Unremarkable for age. IMPRESSION: 1. Dilated loops of small bowel consistent with small-bowel obstruction. This transitions at the point of the terminal ileum which appears diminutive in caliber with hyperenhancement, irregularity of its` wall as well as the question of small sinus tracts in the adjacent mesentery. Appearance is suspicious for inflammatory bowel disease/Crohn`s disease as the underlying etiology of the obstruction. Differential diagnosis would include an infectious enteritis involving the terminal ileum. Associated trace ascites. 2. Somewhat globular lobulated hypodensity at the fundus of the uterus. This is inseparable from the endometrium and can represent diffuse endometrial thickening versus leiomyomata. Suggest follow-up outpatient pelvic ultrasound for further characterization. Please note that all CT scans at this facility use dose modulation, iterative reconstruction, and/or weight-based dosing when appropriate to reduce radiation dose to as low as reasonably achievable. Labs on day of discharge: Labs from last 24 hours 10/21/24 05:55 Sodium 133 L Potassium 3.9 Chloride 100 Carbon Dioxide 28 Anion Gap 5 L BUN 8 Creatinine 0.5 Estimated Creat Clear 116.24 Estimated GFR 114 Glucose 80 Calcium 8.5 Phosphorus 4.0 Magnesium 2.0 Discharge Plan Discharge Disposition: Home, Self-Care Date of Admission: 10/11/24 15:42 Attending Provider on Discharge: Kandis Andersen Consulting Providers: Kandis Andersen; Raffy Leigh; Marci Bradford Primary Care Provider: Miracle Brennan Condition: Stable Anticipated Discharge Date/Time: 10/21/24 09:21 Discharge Medications: New hydrocodone-acetaminophen 5-325 mg tablet 1 tab PO Q6H PRN (Reason: pain) Qty: 25 0RF Continued ondansetron 4 mg tablet,disintegrating 4 mg PO Q6H PRN (Reason: nausea and vomiting) Discharge Orders: Discharge Order (Routine); Ordered 10/21/24 Ordered By: Kandis Andersen Patient Education: Hydrocodone/Acetaminophen (By mouth), Crohn Disease (GEN), Surgical Site Infections (DC) Additional Instructions: Wound care: Your sutures are under the skin and will dissolve over time. Leave steri strips (white bandages) over incisions until they fall off (or remove after 7 days). OK to shower tomorrow but avoid bathing, soaking or swimming for 2 weeks. Pat the incisions dry. No need to wash or scrub the area. Apply ice to the area as needed for swelling. It is also OK to use a heating pad if this provides more comfort to you. Pain control: You were prescribed a pain medication. This medication contains acetaminophen (Tylenol). If you are taking your prescribed pain pills 4 times daily, do not take additional acetaminophen. As your pain improves, you can try taking acetaminophen instead of the prescribed pain pill. It is ok to take Ibuprofen or Naproxen (per directions on packaging). This medication helps with inflammation and swelling. Take an cjfy-bnf-ocqemkr stool softener while you are taking prescribed pain medications to help alleviate constipation. I recommend Senna and/or Colace. Take as directed on package. These are available over the counter. Follow-up Follow up with Dr. Bradford in 2 weeks Please call if you are experiencing severe pain, nausea, vomiting, difficulty urinating, fever or have not had bowel movement in 4 days after surgery. To speak to the stone gang sawyer surgeon after hours please call [phone]. Other PCP f/u: - [facility] is a great option for Crohn's f/u - pelvic ultrasound to evaluate abnormality on CT - further anemia workup is a good idea Activity Level: Activity as Tolerated and No strenuous activity Activity Detail: No lifting > 20 pounds for 4 weeks from surgery Discharge Diet: Regular Follow Up Appointments: Miracle Brennan, PA-C [Primary Care Provider] - Marci Bradford MD [Staff Physician] - 11/07/24 8:30 am Forms: [employer] Info Instructions
--- NOTE | 2024-10-21 10:17 | PC.NURSE ---
pt discharge to home with . d/c instructions given to pt and explained, all questions answered.
[2024-10-21 23:40] LABS: Ova and Parasite, Fecal Negative (Negative)
== END 2024-10-21 10:17 | disposition home or self-care (01) | DRG 330 ==
LOC: ED 09:54 → MEDSURG 12:57
PROVIDERS: Family Medicine; Surgery; Admitting Provider Physician Assistant; Emergency Provider Family Medicine; PCP Physician Assistant Medical; Visit Provider Family Medicine
PROC: 0DTB0ZZ Resection of Ileum, Open Approach (ICD-10-PCS; principal; 2024-10-17 11:30)
DX: K50.012 Crohn's disease of small intestine with intestinal obstruction (principal); E44.0 Moderate protein-calorie malnutrition; E87.21 Acute metabolic acidosis; E87.6 Hypokalemia; K52.9 Noninfective gastroenteritis and colitis, unspecified; D64.9 Anemia, unspecified; R93.89 Abnormal findings on diagnostic imaging of other specified body structures; G89.18 Other acute postprocedural pain; E86.0 Dehydration; Z68.23 Body mass index [BMI] 23.0-23.9, adult
CPT/HCPCS: 00840; 36415; 51798; 64488; 74018; 76942; 80048; 80053; 80076; 81025; 82150; 82270; 83605; 83735; 84100; 84134; 85025; 85027; 86140; 87040; 87045; 87046; 87177; 87209; 87427; 87493; 87505; 88307; 88342; 93005; 94761; 99140; 99284; 99285; A9270; B4189; J0330; J0456; J0665; J0666; J1100; J1171; J1335; J1650; J1885; J2060; J2175; J2270; J2405; J2470; J2710; J3010; J3475; J3480; J3490; J7030; J7050; J7120

== ENCOUNTER 2024-11-07 08:57 | Outpatient (CLI) | payer OTHER, SELFPAY | END 2024-11-07 08:58 | disposition home or self-care (01) | LOC: NFLDREF 08:58 | PROVIDERS: PCP Physician Assistant Medical; Visit Provider Surgery | DX: R19.7 Diarrhea, unspecified (principal) | CPT/HCPCS: 87493 ==

== ENCOUNTER 2024-11-21 11:57 | Outpatient (CLI) | payer OTHER, SELFPAY ==
--- NOTE | 2024-11-21 12:15 | CRLHL7_ITS ---
For Patients: As a result of the Century Cures Act, medical imaging exams and procedure reports are released immediately into your electronic medical record. You may view this report before your referring provider. If you have questions, please contact your health care provider. INDICATION: abnormal findings on CT COMPARISON: CT 10/10/2024 TECHNIQUE: 2D morrow scale and color Doppler images were acquired of the pelvis using a transabdominal and transvaginal approach. FINDINGS: Posterior fundal fibroid is present measuring 3.7 x 3.3 x 3.6 cm. Anterior intramural fibroid measures 1.2 x 1.1 x 1.3 cm. Posterior intramural fibroid measures 9 x 6 x 8 millimeters. Myometrial cyst is present adjacent to the endometrial stripe which measures less than 1 cm. Uterus measures 8.6 cm in length by 4.6 cm in AP diameter by 7.1 cm in transverse dimension. The endometrial lining measures 6.6 mm in composite thickness. The right ovary measures 3.1 x 1.5 x 1.5 cm in size and the left ovary measures 6.1 x 3.6 x 4.4 cm. The ovaries demonstrate normal arterial and venous blood flow on color Doppler analysis. Mild pelvic free fluid. Simple left ovarian cyst measures 4.2 x 3.5 x 3.9 cm. IMPRESSION: Multiple uterine fibroids measuring up to 3.7 cm. Simple left ovarian cyst measures 4.2 cm. Dictated by Tal Smith MD @ 11/21/2024 2:17:13 PM (Electronically Signed)
== END 2024-11-21 11:58 | disposition home or self-care (01) ==
LOC: US 11:57
PROVIDERS: PCP Physician Assistant Medical; Visit Provider Physician Assistant Medical
DX: R93.5 Abnormal findings on diagnostic imaging of other abdominal regions, including retroperitoneum (principal); D25.9 Leiomyoma of uterus, unspecified; N83.292 Other ovarian cyst, left side
CPT/HCPCS: 76830; 76856

== ENCOUNTER 2025-02-28 08:46 | Outpatient (CLI) | payer OTHER, SELFPAY | END 2025-02-28 08:47 | disposition home or self-care (01) | LOC: NFLDREF 03-05 17:43 | PROVIDERS: PCP Physician Assistant Medical; Referring Provider Physician Assistant Medical; Visit Provider Physician Assistant Medical | DX: L65.9 Nonscarring hair loss, unspecified (principal) | CPT/HCPCS: 80053; 82306; 82607; 82728; 84443; 84630 ==

== ENCOUNTER 2025-04-09 09:02 | Outpatient (CLI) | payer OTHER, SELFPAY | END 2025-04-09 09:03 | disposition home or self-care (01) | LOC: NFLDREF 04-14 03:20 | PROVIDERS: PCP Physician Assistant Medical; Referring Provider Physician Assistant Medical; Visit Provider Physician Assistant Medical | DX: D64.9 Anemia, unspecified (principal) | CPT/HCPCS: 82607; 82728; 82746; 83540; 83550 ==

== ENCOUNTER 2025-05-03 10:03 | Outpatient (CLI) | payer OTHER, SELFPAY | END 2025-05-03 10:04 | disposition home or self-care (01) | PROVIDERS: PCP Physician Assistant Medical; Visit Provider Physician Assistant Medical | DX: D64.9 Anemia, unspecified (principal); K59.00 Constipation, unspecified | CPT/HCPCS: 82306; 82607; 82728 ==

== ENCOUNTER 2025-06-21 14:09 | Outpatient (CLI) | payer OTHER, SELFPAY | END 2025-06-21 14:10 | disposition home or self-care (01) | PROVIDERS: PCP Physician Assistant Medical; Visit Provider Physician Assistant Medical | DX: D50.9 Iron deficiency anemia, unspecified (principal); N92.0 Excessive and frequent menstruation with regular cycle | CPT/HCPCS: 82728; 84443; 84597 ==

== ENCOUNTER 2025-07-06 09:54 | Day surgery (SDC) | payer OTHER, SELFPAY ==
[2025-07-06 10:11] LABS: Ur HCG Qualitative* Negative (Negative)
[2025-07-06 10:14] VITALS: BP 115/79; PULSE 70; RESP 16; TEMP 36.8; O2SAT 97; BMI 22.8
[2025-07-06] MEDS: LACTATED RINGERS 1000 ML 1,000 ML 100 ML IV (10:20)
[2025-07-06] MEDS: SODIUM CHLORIDE 0.9 % (FLUSH) 10 ML SYRINGE IVF (10:20)
--- NOTE | 2025-07-06 10:54 | W.PM.H&PU ---
History & Physical Update History & Physical Update H&P Reviewed and patient assessed: No changes noted
--- NOTE | 2025-07-06 11:42 | P.GYNPRC_ITS ---
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 Postoperative diagnosis: Same Procedure: Hysteroscopy, dilation and curettage, Mirena IUD insertion Anesthesia: Conscious sedation with paracervical block. Surgeon:Merary Sparks MD Specimen: Endometrial curettings to pathology. Estimated blood loss: <5 cc IVF: 800 mL Findings: Exam under anesthesia: Cervix palpates normal. Uterus: retroverted position, 6 week size, mobile, without some nodularity due to fibroids. Adnexa were without fullness or nodularity. On hysteroscopy: Fluffy endometrium, no obvious submucosal fibroids. Normal bilateral tubal ostia Procedure: Walter was taken to the operating where conscious sedation was found to be adequate. She was placed in the dorsal lithotomy position. An exam under anesthesia was performed with findings stated above. She was then prepped and draped in normal sterile manner. Bladder drained with a straight cath. 120 cc of clear urine. A bivalve metal speculum was placed in the vaginal canal. The cervix and vaginal canal appear normal. A paracervical block was placed using 1% lidocaine with epinephrine: 5 mL injected at the 4 and 8 o'clock positions on the cervix. The anterior lip of the cervix was then grasped with a long Allis. The cervix was dilated to Hegar 6. The uterus sounded to 9 cm. The hysteroscope advanced into the uterus and a diagnostic hysteroscopy was performed with findings stated above. Normal saline was used as the insufflation medium. Soft tissue shaver was used to perform global curetting. The uterus and documented a normal appearing uterine cavity at the end of the procedure. Attention was then turned towards Mirena IUD placement. The IUD is loaded into the insertion tube, inserted to the sounded depth, and the IUD is deployed. Insertion tube was removed. Strings are trimmed to 3 cm. There were no comp lications with insertion. The hysteroscope was reintroduced to confirm appropriate positioning. Fluid deficit at the end of the procedure 90 mL. Total fluid: 1220 mL The hysteroscope and Allis clamp were removed from the uterus and cervix. Excellent hemostasis noted. Nothing was used for hemostasis. The patient tolerated the procedure well. Sponge, lap and instruments counts were correct at the end of the procedure. The patient was awakened from anesthesia and taken to the recovery area in stable condition. Surgical debrief performed and specimen reviewed at the end of the procedure.
[2025-07-06 11:44] VITALS: BP 115/70; PULSE 86; RESP 16; TEMP 36.3; O2SAT 99
[2025-07-06 11:45] VITALS: BP 119/67; PULSE 83; RESP 16; O2SAT 99
--- NOTE | 2025-07-06 11:46 | P.ANES_ITS ---
Anesthesia Charges Start Date/Time Anesthesia Start Date: 07/06/25 Anesthesia Start Time: 11:00 Stop Date/Time Anesthesia Stop Date: 07/06/25 Anesthesia Stop Time: 11:46 Coding CPT Codes CPT Codes: ANESTH HYSTEROSCOPE/GRAPH - 87031 ([id number]) P2 - PATIENT W/MILD SYST DISEASE, QZ - PANEL EDGE SEALER SVC W/O OPTIMIZATION CONSULTANT BY
--- NOTE | 2025-07-06 11:46 | W.ANESCHARGE ---
Anesthesia Charges Start Date/Time Anesthesia Start Date: 07/06/25 Anesthesia Start Time: 11:00 Stop Date/Time Anesthesia Stop Date: 07/06/25 Anesthesia Stop Time: 11:46 Coding CPT Codes CPT Codes: ANESTH HYSTEROSCOPE/GRAPH - 58387 ([id number]) P2 - PATIENT W/MILD SYST DISEASE, QZ - PRODUCT SUPPORT SPECIALIST SVC W/O HEAVY D[employer]Y MECH[employer]IC [employer] EQUIPMENT BY
[2025-07-06 12:00] VITALS: BP 132/81; PULSE 63; RESP 16; O2SAT 99
[2025-07-06 12:15] VITALS: BP 122/78; PULSE 72; RESP 16; O2SAT 99
== END 2025-07-06 12:49 | disposition home or self-care (01) ==
LOC: OR 09:55
PROVIDERS: Anesthesiology; PCP Physician Assistant Medical; Visit Provider Obstetrics & Gynecology
PROC: 0UDB8ZZ Extraction of Endometrium, Via Natural or Artificial Opening Endoscopic (ICD-10-PCS; CPT 58558; principal; 2025-07-06 11:15)
DX: N92.0 Excessive and frequent menstruation with regular cycle (principal); D25.9 Leiomyoma of uterus, unspecified
CPT/HCPCS: 58558; 58300; 00952; 81025; C1782; J1885; J2250; J2704; J3010; J7120; J7298